=== PATIENT | female | born 1940 | race Caucasian/White ===

== ENCOUNTER 2017-08-16 14:31 | Emergency (ER) | payer MEDICARE ==
[2017-08-16 15:48] VITALS: BP 129/73
--- NOTE | 2017-08-16 15:54 | UC ---
Complaint Female HPI - HPI Summary HPI Summary: Lower abdomen pain began yesterday, urinating in small amounts, no fever - History Of Current Complaint Chief Complaint: UCGU Stated Complaint: URINARY Time Seen by Provider: 08/16/17 15:50 Hx Obtained From: Patient ?: No Onset/Duration: Sudden Onset, Lasting Days - 1 Timing: Constant Severity Initially: Moderate Severity Currently: Moderate Character: Burning Aggravating Factor(s): Urination Associated Signs And Symptoms: Positive: Back Pain - Allergies/Home Medications Allergies/Adverse Reactions: Allergies Allergy/AdvReac Type Severity Reaction Status Date / Time Amoxicillin Allergy Rash Verified 10/29/15 12:48 Iodinated Contrast Media Allergy Itching Verified 10/29/15 12:48 [CONTRAST DYE] Oxycodone [From Oxycontin] Allergy Itching Verified 10/29/15 12:48 Sulfamethoxazole AdvReac Intermediate "Pain" Verified 10/29/15 12:48 w/Trimethoprim [From Bactrim] Doxycycline AdvReac GI Upset, Verified 10/29/15 12:48 Nausea, Vomiting, Diarrhea Flu vaccine Allergy See Comment Uncoded 08/16/17 15:50 Hydrocodone 7.5/ Ibuprofen Allergy Unknown Uncoded 10/29/15 12:48 200 Reaction Details oxycodone Allergy Itching Uncoded 08/16/17 15:50 Home Medications: Home Medications Alendronate Sodium [Fosamax-] 70 mg PO WEEKLY 08/16/17 [History Confirmed ] Conjugated Estrogens VAG CM* [Premarin VAG CREAM*] 0.5 applic VAGINAL .SEE DIRECTIONS 08/16/17 [History Confirmed 08/16/17] Probiotic Product [Matchbook] 1 cap PO QAM 08/16/17 [History Confirmed 08/16/17] tiZANidine TAB* [Zanaflex TAB*] 2 mg PO BEDTIME 08/16/17 [History Confirmed 06/25] PMH/Surg Hx/FS Hx/Imm Hx Previously Healthy: No GI/ History: Gastroesophageal Reflux - Surgical History Surgical History: Yes Surgery Procedure, Year, and Place: 07/16/2017 L4 L5 plate screw and shay done at [facility]; Appendectomy, 1957. Tubal Ligation, 1976. L5 S1 Partial Discectomy, 1978. Breast Reduction, 2001. Left and Right Shoulder Surgeries "from repetative", 2003 and 2005. Right Carpal Tunnel Release and Tendon Repair , 2006. Total left Knee replacement. Bunion and Toes Surgeries - Family History Known Family History: Positive: None - Social History Occupation: Retired Lives: With Family Alcohol Use: Rare Substance Use Type: None Smoking Status (MU): Never Smoked Tobacco - Immunization History Most Recent Influenza Vaccination: "Allergic" Review of Systems Constitutional: Negative Skin: Negative Eyes: Negative ENT: Negative Respiratory: Negative Cardiovascular: Negative Gastrointestinal: Abdominal Pain Genitourinary: Frequency, Urgency Motor: Negative Neurovascular: Negative Musculoskeletal: Negative Neurological: Negative Psychological: Negative Is Patient Immunocompromised?: No All Other Systems Reviewed And Are Negative: Yes Physical Exam Triage Information Reviewed: Yes Vital Signs: Initial Vital Signs Temp 98 F 08/16/17 15:37 Pulse 84 08/16/17 15:37 Resp 18 08/16/17 15:37 BP 129/73 08/16/17 15:37 Eye Exam: Normal ENT Exam: Normal Dental Exam: Normal Neck exam: Normal Neck: Positive: 1 Respiratory Exam: Normal Cardiovascular Exam: Normal Abdominal Exam: Normal Musculoskeletal Exam: Normal Neurological Exam: Normal Psychological Exam: Normal Skin Exam: Normal Complaint Female Dx - Course Course Of Treatment: Increase fluids, macrobid, pyridium follow with pcp - Differential Dx/Diagnosis Provider Diagnoses: UTI Discharge - Discharge Plan Condition: Stable Disposition: HOME Prescriptions: Nitrofurantoin Monohyd Macro [Macrobid] 100 mg PO BID #20 cap Phenazopyridine TAB* [Pyridium 100 mg TAB*] 100 mg PO TID #9 tab Patient Education Materials: Phenazopyridine (By mouth), Urinary Tract Infection in Women (ED) Referrals: Edwin Morrow MD [Primary Care Provider] - If Needed
== END 2017-08-16 16:23 | disposition home or self-care (01) ==
LOC: UCCORT 14:31
DX: N39.0 Urinary tract infection, site not specified (principal); Z88.2 Allergy status to sulfonamides; Z88.1 Allergy status to other antibiotic agents; Z91.041 Radiographic dye allergy status
CPT/HCPCS: 81003; 87077; 87086; 87186; 99212; G0463

== ENCOUNTER 2019-01-14 13:27 | Emergency (ER) | payer MEDICARE ==
--- OUTSIDE RECORDS SUMMARY | 2019-01-14 14:49 | XMS REPORT | Continuity of Care Document ---
:1940 External Reference #:[id number] Author Name Edwin Morrow MD Address [address] [place] [address] Care Team Providers Name Role Phone Edwin Morrow MD Care Team Information [employer] Unavailable Payers Date Identification Numbers Payment Provider Subscriber Effective: 2005 Policy Number: [id number] Medicare Yuliya Card PayID: [id number] [address] [place] [address] Policy Number: [id number] [facility] Healthcare Options Yuliya Card PayID: [id number] [address] [place] [address] Advance Directives Description No Information Available Problems Date Description Provider Status Onset: 10/23/2014 Anxiety state Edwin Morrow MD Active Onset: 10/23/2014 Arthroplasty of knee Edwin Morrow MD Active Onset: 03/18/2005 Idiopathic peripheral neuropathy Edwin Morrow MD Active Onset: 03/18/2005 Gastroesophageal reflux disease Edwin Morrow MD Active Onset: 06/27/2005 Pure hypercholesterolemia Edwin Morrow MD Active Onset: 08/01/2005 Mild recurrent major depression Edwin Morrow MD Active Onset: 03/30/2007 Benign neoplasm of colon Edwin Morrow MD Active Onset: 10/09/2008 Degenerative joint disease Edwin Morrow MD Active involving multiple joints Onset: 04/12/2009 Edema Edwin Morrow MD Active Onset: 10/31/2011 Elevated blood-pressure reading Edwin Morrow MD Active without diagnosis of hypertension Onset: 06/20/2015 Osteopenia Edwin Morrow MD Active Onset: 11/30/2015 Degeneration of lumbar Edwin Morrow MD Active intervertebral disc Onset: 07/16/2018 Localized, primary osteoarthritis Edwin Morrow MD Active Onset: 02/05/2014 Localized, primary osteoarthritis Edwin Morrow MD Inactive of the lower leg Inactive: 06/20/2015 Onset: 03/30/2007 Osteochondropathy Edwin Morrow MD Inactive Inactive: 06/20/2015 Onset: 03/18/2005 Intrinsic asthma without status Edwin Morrow MD Inactive asthmaticus Inactive: 12/24/2015 Onset: 08/01/2005 Allergic rhinitis Edwin Morrow MD Inactive Inactive: 12/24/2015 Family History Date Family Member(s) Observation Comments Father due to CAD () Father due to CVA () - 82 Mother CAD Mother Osteoporosis Mother Dmii First Brother Multiple Blood Clots (Pe/DVT Paternal Uncles CAD Paternal Aunts Cancer, Breast Paternal Aunts Cancer, Colon Social History Type Date Description Comments Sex Unknown Marital Status Lives With Alone 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 09/15/2011 Doxycycline vomiting Active N/V 01/16/2006 Amoxicillin Active rash 03/14/2005 Oxycodone Active Itching 07/01/2017 Contrast Dye Active Mild itching 09/29/2017 Nitrofurantoin, Nausea and Vomiting Active Macrocrystals / Nitrofurantoin, Monohydrate Medications Medication Date Status Form Strength Qnty SIG Indications Ordering Provider Ranitidine 150 08/24/ Active Tablets 150mg 30tabs 1 by R10.10 Digiovanna Maximum 2017 mouth , Strength twice a Greer, day as DOG WALKER needed Fish Oil 03/04/ Active Capsules 1000mg 1 by E78.00 Heatheriovanmarie Dun[place]-3 2018 mouth , Edwin, every day otc Fluticasone 12/18/ Active Suspension 50mcg/Act 15.800 1-2 J06.9 Wilde Propionate 2018 ml sprays Hannah begum MD each nostril daily Multivitamin 05/14/ Active Tablets Adlt 50+ 90tabs 1 by Digsharla Adults 50+ 2016 Edwin huang every day Alendronate 05/14/ Active Tablets 70mg 12tabs take 1 M85.89 Odalys Sodium 2017 tablet Edwin every MD week in the morning - take with 8oz water and remain upright and nothing by mouth for 30 minutes M85.80 Acetaminophen 03/12/2017 Active Tablets ER 650mg otc 2 by M51.36 Odalys, ER reina Pineda MD twice a day as needed for pain Calcium Active Chewtabs 500mg 2 po bid M85.80 Odalys, Carbonate prn Edwin Dorantes MD Antacid Clindamycin HCL 10/05/2018 - Hx Capsules 300mg 2caps 2 pills Heatheriovanmarie, 10/07/2018 by mouth MD Edwin 1 hour pre-denta l work Azithromycin 04/20/2018 - Hx Tablets 250mg 6tabs 2 pills L03.211 Digiovanna, 04/30/2018 by reina Pineda MD day 1, then 1 pill once daily for 4 more days (take w/ food) Ciprofloxacin 09/29/2017 - Hx Tablets 250mg 10tab 1 by R30.0 Digiovanna , HCL 10/04/2017 s mouth Greer, DOG WALKER twice a day for 5 days Tizanidine HCL 08/13/2017 - Hx Tablets 2mg 14tab 1 by M54.5 Madden, 09/29/2017 s mouth at [place], DO bedtime Lorazepam 03/03/2017 - Hx Tablets 1mg 1tabs 1 by Odalys, 03/10/2017 mouth 1 MD Edwin hour pre-mri Dexamethasone 02/26/2017 - Hx Tablets 0.5mg QS 4 po q d M48.06 Chantelle, 05/14/2017 x 3 days DO Reji then 3 po q d x 3 days then 2 po q d x 3 then 3 days then 1 po q d x 3 days then stop Duloxetine HCL 02/26/2017 - Hx Caps DR 30mg 90cap take one M51.36 Heatheriovanna, 01/05/2018 Part s capsule MD Edwin by mouth every day G60.9 F33.0 Azelastine 10/09/2016 - Hx Solution 0.15% 30ml spray 1 H68.001 Madden HCL (Nasal) 07/01/2017 spray in [place], each DO nostril two times a day Frye 08/27/2016 - Hx Capsules one daily Digiovanna Colon Health 03/04/2018 or use , ann-marie Pineda MD daily both over the counter Kaopectate 06/23/2016 - Hx Suspension 525mg/15 as A09 Digiovanna Extra 06/30/2016 ML directed , Nathan Pineda MD Loperamide 06/23/2016 - Hx Capsules 2mg 90caps take one A09 Digiovanna HCL 06/30/2016 capsule by Edwin mouth MD three times a day as needed for loose stools Cephalexin 06/04/2016 - Hx Tablets 250mg 15tabs 1 pill by R21 Digiovanmarie 06/09/2016 mouth 3 Edwin, times a MD day for 5 days Duloxetine 12/06/2015 - Hx Caps DR Kumar 20mg 30caps 1 by mouth M51.36 Digiovanna HCL 02/26/2017 every day , MD Edwin G60.9 F33.0 Citalopram 12/05/2015 - Hx Tablets 10mg 30tabs 1 by M51.36 Odalys Hydrobromide Unknown mouth MD Edwin every day G60.9 F32.8 Duloxetine HCL 12/04/2015 - Hx Caps 20mg 30caps 1 by M51.36 Odalys, 05/26/2016 Part mouth MD Edwin every day G60.9 F32.8 Nitrofurantoin 10/11/2015 - Hx Capsules 100mg 14caps 1 by mouth R30.0 Chano Macrocrystal 10/18/2015 twice a day [place], DO x 7 days Prednisone 10/11/2015 - Hx Tablets 20mg 10tabs 2 by mouth M54.5 Madden, 10/16/2015 daily x 5 [place], DO days Lorazepam 08/24/2015 - Hx Tablets 1mg 1tabs 1 by mouth 1 Digiovanmarie, 09/03/2015 hour pre-MRI MD Edwin Tramadol HCL 08/14/2015 - Hx Tablets 50mg 30tabs 1/2 or 1 M54.2 Digiovanna, 02/26/2017 pill by MD Ewdin mouth 3 times a day as neededfor neck and arm pain R20.2 Prednisone 08/07/2015 - Hx Tablets 20mg 10tabs 1 pill by M54.2 Digiovanna, 09/18/2015 mouth MD Edwin twice a day with food for 5 days Tizanidine HCL 07/26/2015 - Hx Tablets 2mg 14tabs 1-2 po 733.6 Madden, 08/03/2015 qhs prn DO [place] pain Biotin 02/08/2015 - Hx Tablets OTC 1 PO qd Digiovanna, 12/31/2016 MD Edwin Citalopram 11/07/2014 - Hx Tablets 20mg 1/2 by 300.00 Digiovanmarie, Hydrobromide 12/04/2014 mouth MD Edwin every day Naproxen 10/23/2014 - Hx Tablets 375mg 180tabs 1 by M15.0 Shannanvanmarie, 12/10/2016 mouth MD Edwin twice a day with food as needed pain/arth ritis Z96.659 M15.9 Hydroxyzine HCL 10/17/2014 - Hx Tablets 10mg 50tabs 1 by mouth Digiovanna, 02/12/2015 up to 3 Edwin Dorantes MD times a day as needed for anxiety, and 2 at bedtime if needed for sleep Omeprazole 10/31/2011 - Hx Capsules DR 20mg 180caps Take Two K21 Digiovanna, 08/24/2018 Capsules By .9 MD Edwin Mouth Every Morning R10.13 [place] 50 10/09/2008 - Hx Capsules 1000mg 3PO qd E78.0 Digiovanna, 08/24/2018 Edwin Dorantes MD Glucosamine - Hx Capsules 1500Com 1 po qd Unknown Chondroitin 03/04/2018 1500 Complex Premarin - Hx Cream 0.625mg/G /2 Unknown 03/04/2018 M applicator full vaginally 2x/week Oxycodone HCL - Hx Tablets 5mg 1 by mouth Unknown 09/29/2017 every 4 hours as needed pain Naproxen - Hx Tablets 250mg 1 tab by Unknown 09/29/2017 mouth twice a day as needed after meals Docusate Sodium - Hx Capsules 100mg 1 by mouth Unknown 09/29/2017 twice a day Immunizations CPT Code Status Date Vaccine Lot # [id number] Given 06/20/2015 Prevnar 13 Pneumococal Conjugate Vaccine [id number] Given 06/02/2012 Tdap (Adacel) Ages 7 And Above Only 43916 Given 10/09/2008 Pneumococcal 23 Immunization Adult Or Immunosuppressed Patient 37414 Given 10/09/2008 Pneumococcal 23 Immunization Adult Or Immunosuppressed Patient 80029 Given 10/04/2007 Zoster (Zostavax) 33950 Refused 07/16/2018 Fluzone Highdose Age 65 And Over Preservative & Antibiotic Free 86305 Refused 09/29/2017 Influenza Vac, Quadrivalent, Split, 0.5mL Dosage, Im [id number] Use Vital Signs Date Vital Result Comment 12/28/2018 11:19am Weight 151.50 lb Heart Rate 74 /min BP Systolic 124 mmHg BP Diastolic 68 mmHg Respiratory Rate 18 /min 12/02/2018 2:14pm Body Temperature 98.0 F Weight 152.00 lb Heart Rate 70 /min BP Systolic 134 mmHg BP Diastolic 72 mmHg Respiratory Rate 18 /min Height 60 inches 5'0" BMI (Body Mass Index) 29.7 kg/m2 08/24/2018 2:26pm Body Temperature 98.3 F tympanic Weight 151.50 lb Heart Rate 76 /min BP Systolic 128 mmHg BP Diastolic 84 mmHg Respiratory Rate 16 /min Height 60 inches 5'0" BMI (Body Mass Index) 29.6 kg/m2 07/16/2018 1:27pm Weight 150.00 lb Heart Rate 74 /min BP Systolic 132 mmHg BP Diastolic 66 mmHg Respiratory Rate 16 /min Height 60 inches 5'0" BMI (Body Mass Index) 29.3 kg/m2 04/20/2018 11:21am Weight 151.00 lb Heart Rate 72 /min BP Systolic 120 mmHg BP Diastolic 80 mmHg Respiratory Rate 18 /min Height 60 inches 5'0" BMI (Body Mass Index) 29.5 kg/m2 03/12/2018 4:00pm Weight 150.00 lb Heart Rate 70 /min BP Systolic 146 mmHg BP Diastolic 70 mmHg Respiratory Rate 18 /min Height 60 inches 5'0" 03/04/18 BMI (Body Mass Index) 29.3 kg/m2 03/04/2018 9:55am Weight 150.00 lb Heart Rate 88 /min BP Systolic 122 mmHg BP Diastolic 70 mmHg Respiratory Rate 18 /min Height 60 inches 5'0" 03/04/18 BMI (Body Mass Index) 29.3 kg/m2 01/05/2018 12:58pm Weight 148.00 lb Heart Rate 74 /min BP Systolic 120 mmHg BP Diastolic 76 mmHg Respiratory Rate 18 /min Height 60 inches 5'0" BMI (Body Mass Index) 28.9 kg/m2 12/18/2017 1:52pm Body Temperature 98.4 F Weight 148.00 lb Heart Rate 88 /min BP Systolic 132 mmHg BP Diastolic 72 mmHg Respiratory Rate 18 /min Height 60 inches 5'0" O2 % BldC Oximetry 95 % ra BMI (Body Mass Index) 28.9 kg/m2 12/01/2017 10:42am Weight 147.00 lb Heart Rate 72 /min BP Systolic 120 mmHg BP Diastolic 80 mmHg Respiratory Rate 18 /min Height 60 inches 5'0" BMI (Body Mass Index) 28.7 kg/m2 10/21/2017 10:43am Weight 145.00 lb Heart Rate 72 /min BP Systolic 122 mmHg BP Diastolic 82 mmHg Respiratory Rate 18 /min Height 60 inches 5'0" BMI (Body Mass Index) 28.3 kg/m2 09/29/2017 1:58pm Body Temperature 97.7 F Weight 148.00 lb Heart Rate 94 /min BP Systolic 120 mmHg BP Diastolic 78 mmHg Respiratory Rate 16 /min Height 60 inches 5'0" BMI (Body Mass Index) 28.9 kg/m2 08/13/2017 2:27pm Weight 144.00 lb Heart Rate 68 /min BP Systolic 128 mmHg BP Diastolic 70 mmHg Respiratory Rate 18 /min Height 60 inches 5'0" BMI (Body Mass Index) 28.1 kg/m2 08/10/2017 4:15pm Body Temperature 97.5 F Weight 138.00 lb Heart Rate 70 /min BP Systolic 132 mmHg BP Diastolic 70 mmHg Respiratory Rate 18 /min Height 60 inches 5'0" BMI (Body Mass Index) 26.9 kg/m2 07/01/2017 1:00pm Weight 150.00 lb Heart Rate 74 /min BP Systolic 130 mmHg BP Diastolic 80 mmHg Respiratory Rate 18 /min Height 60 inches 5'0" BMI (Body Mass Index) 29.3 kg/m2 05/14/2017 9:32am Weight 151.00 lb Heart Rate 74 /min BP Systolic 130 mmHg BP Diastolic 80 mmHg Respiratory Rate 18 /min Height 60 inches 5'0" BMI (Body Mass Index) 29.5 kg/m2 02/26/2017 2:27pm Weight 152.50 lb Heart Rate 92 /min BP Systolic 136 mmHg BP Diastolic 80 mmHg Respiratory Rate 18 /min Height 60 inches 5'0" BMI (Body Mass Index) 29.8 kg/m2 12/31/2016 1:00pm Weight 151.19 lb Heart Rate 68 /min BP Systolic 148 mmHg BP Diastolic 80 mmHg BP Systolic Recheck 136 mmHg L at rest BP Diastolic Recheck 78 mmHg L at rest Respiratory Rate 18 /min Height 60 inches 5'0" BMI (Body Mass Index) 29.5 kg/m2 12/10/2016 4:21pm Body Temperature 97.9 F Weight 150.00 lb Heart Rate 74 /min BP Systolic 134 mmHg BP Diastolic 80 mmHg Respiratory Rate 18 /min Height 60 inches 5'0" BMI (Body Mass Index) 29.3 kg/m2 10/09/2016 8:38am Body Temperature 97.0 F Weight 151.00 lb Heart Rate 74 /min BP Systolic 122 mmHg BP Diastolic 78 mmHg Respiratory Rate 18 /min Height 60 inches 5'0" BMI (Body Mass Index) 29.5 kg/m2 08/27/2016 11:02am Weight 144.00 lb Heart Rate 74 /min BP Systolic 126 mmHg BP Diastolic 80 mmHg Respiratory Rate 18 /min Height 60 inches 5'0" BMI (Body Mass Index) 28.1 kg/m2 06/30/2016 12:59pm Weight 147.00 lb Heart Rate 72 /min BP Systolic 120 mmHg BP Diastolic 78 mmHg Respiratory Rate 18 /min Height 60 inches 5'0" BMI (Body Mass Index) 28.7 kg/m2 06/23/2016 11:26am Body Temperature 97.4 F Weight 145.00 lb Heart Rate 72 /min BP Systolic 130 mmHg BP Diastolic 80 mmHg Respiratory Rate 18 /min Height 60 inches 5'0" BMI (Body Mass Index) 28.3 kg/m2 06/04/2016 11:10am Body Temperature 98.1 F Weight 146.00 lb Heart Rate 74 /min BP Systolic 120 mmHg BP Diastolic 72 mmHg Respiratory Rate 18 /min Height 60 inches 5'0" BMI (Body Mass Index) 28.5 kg/m2 04/29/2016 9:50am Weight 149.00 lb Heart Rate 74 /min BP Systolic 140 mmHg BP Diastolic 80 mmHg Respiratory Rate 18 /min 02/19/2016 9:04am Body Temperature 97.5 F Weight 146.00 lb Heart Rate 72 /min BP Systolic 120 mmHg BP Diastolic 80 mmHg Respiratory Rate 18 /min Height 60.1 inches 5'0.10" BMI (Body Mass Index) 28.4 kg/m2 02/11/2016 1:54pm Weight 147.00 lb Heart Rate 74 /min BP Systolic 140 mmHg BP Diastolic 88 mmHg Respiratory Rate 18 /min Height 60.1 inches 5'0.10" BMI (Body Mass Index) 28.6 kg/m2 12/24/2015 1:02pm Weight 143.00 lb Heart Rate 90 /min BP Systolic 132 mmHg BP Diastolic 86 mmHg Respiratory Rate 16 /min Height 60.1 inches 5'0.10" BMI (Body Mass Index) 27.8 kg/m2 11/30/2015 3:31pm Body Temperature 98.4 F tymp Weight 144.00 lb Heart Rate 96 /min BP Systolic 118 mmHg L/Reg BP Diastolic 74 mmHg L/Reg Respiratory Rate 18 /min Height 60.1 inches 5'0.10" BMI (Body Mass Index) 28.0 kg/m2 11/28/2015 8:20am Body Temperature 98.6 F Weight 139.00 lb Heart Rate 112 /min BP Systolic 132 mmHg L/Reg BP Diastolic 74 mmHg L/Reg Respiratory Rate 20 /min Height 60.1 inches 5'0.10" BMI (Body Mass Index) 27.1 kg/m2 11/26/2015 9:31am Body Temperature 98.3 F Weight 144.00 lb Heart Rate 110 /min BP Systolic 130 mmHg BP Diastolic 80 mmHg Respiratory Rate 19 /min Height 60.1 inches 5'0.10" O2 % BldC Oximetry 96 % Ra BMI (Body Mass Index) 28.0 kg/m2 10/11/2015 1:09pm Body Temperature 98.2 F Weight 156.00 lb Heart Rate 72 /min BP Systolic 122 mmHg BP Diastolic 70 mmHg Respiratory Rate 18 /min Height 60.1 inches 5'0.10" BMI (Body Mass Index) 30.4 kg/m2 09/07/2015 2:21pm Weight 152.00 lb Heart Rate 84 /min BP Systolic 138 mmHg L/Reg BP Diastolic 86 mmHg L/Reg Respiratory Rate 17 /min Height 60.1 inches 5'0.10" BMI (Body Mass Index) 29.6 kg/m2 08/07/2015 3:37pm Weight 152.00 lb Heart Rate 78 /min BP Systolic 132 mmHg L/Reg BP Diastolic 82 mmHg L/Reg Respiratory Rate 21 /min Height 60.1 inches 5'0.10" BMI (Body Mass Index) 29.6 kg/m2 07/26/2015 11:40am Weight 151.00 lb Heart Rate 78 /min BP Systolic 128 mmHg BP Diastolic 76 mmHg Respiratory Rate 18 /min Height 60.5 inches 5'0.50" BMI (Body Mass Index) 29.0 kg/m2 06/20/2015 1:01pm Weight 151.00 lb Heart Rate 76 /min BP Systolic 122 mmHg BP Diastolic 70 mmHg Respiratory Rate 18 /min Height 60.5 inches 5'0.50" BMI (Body Mass Index) 29.0 kg/m2 06/14/2015 11:05am Body Temperature 98.6 F Weight 150.00 lb Heart Rate 64 /min BP Systolic 130 mmHg BP Diastolic 78 mmHg Respiratory Rate 18 /min Height 60.5 inches 5'0.50" O2 % BldC Oximetry 97 % BMI (Body Mass Index) 28.8 kg/m2 05/10/2015 11:24am Weight 151.00 lb Heart Rate 76 /min BP Systolic 138 mmHg R/Reg BP Diastolic 84 mmHg R/Reg Respiratory Rate 18 /min Height 60.5 inches 5'0.50" BMI (Body Mass Index) 29.0 kg/m2 02/12/2015 10:08am Body Temperature 98.9 F Weight 144.12 lb Heart Rate 78 /min BP Systolic 118 mmHg BP Diastolic 72 mmHg Respiratory Rate 18 /min Height 60.5 inches 5'0.50" O2 % BldC Oximetry 98 % Ra BMI (Body Mass Index) 27.7 kg/m2 12/20/2014 3:20pm Weight 146.31 lb Heart Rate 74 /min BP Systolic 118 mmHg BP Diastolic 68 mmHg Respiratory Rate 18 /min Height 60.5 inches 5'0.50" BMI (Body Mass Index) 28.1 kg/m2 11/07/2014 11:07am Weight 141.00 lb Heart Rate 78 /min BP Systolic 130 mmHg BP Diastolic 84 mmHg Respiratory Rate 18 /min Height 60.5 inches 5'0.50" 10/23/2014 1:00pm Weight 142.00 lb Down 7# Heart Rate 84 /min BP Systolic 118 mmHg L/Reg BP Diastolic 74 mmHg L/Reg Respiratory Rate 17 /min Height 60.5 inches 5'0.50" 09/06/2014 1:56pm Weight 149.00 lb Heart Rate 80 /min BP Systolic 134 mmHg BP Diastolic 88 mmHg Respiratory Rate 18 /min Height 60.5 inches 5'0.50" O2 % BldC Oximetry 97 % 08/25/2014 1:55pm Body Temperature 98.2 F Weight 147.00 lb Heart Rate 94 /min BP Systolic 128 mmHg BP Diastolic 80 mmHg Respiratory Rate 18 /min Height 60.5 inches 5'0.50" O2 % BldC Oximetry 93 % Ra 06/06/2014 1:34pm Weight 148.00 lb Heart Rate 84 /min BP Systolic 128 mmHg BP Diastolic 84 mmHg Respiratory Rate 18 /min 02/08/2014 4:34pm Body Temperature 98.8 F Weight 144.00 lb Heart Rate 88 /min BP Systolic 112 mmHg BP Diastolic 80 mmHg Respiratory Rate 18 /min Height 60.5 inches 5'0.50" 12/06/2013 1:03pm Weight 150.00 lb Up 3# Heart Rate 76 /min BP Systolic 134 mmHg L/Reg BP Diastolic 80 mmHg L/Reg Respiratory Rate 19 /min Height 60.5 inches 5'0.50" 11/28/2013 9:52am Weight 147.19 lb Heart Rate 76 /min BP Systolic 148 mmHg BP Diastolic 88 mmHg Respiratory Rate 18 /min Results Test Date Facility Test Result H/L Range Note Basic (BMP) 06/30/2018 [facility] Sodium 144 mmol/L 135-146 1, 2 Potassium 4.1 mmol/L 3.5-5.2 Chloride# 106 mmol/L 97-110 3 Carbon Dioxide 28 mmol/L 24-34 Glucose 85 mg/dL 70-105 BUN 17 mg/dL 6-26 Creatinine 0.8 mg/dL 0.5-1.4 Calcium 9.0 mg/dL 8.5-10.2 Non Elizabeth Egfr >60 >60 4 Elizabeth Egfr >60 >60 5 Anion Gap 10 mmol/L 5-15 6 Lipid Treatment 06/30/2018 [facility] Cholesterol 181 mg/dL 50-199 Triglycerides 210 mg/dL High 30-200 HDL 43 mg/dL 35-85 7 Chol/ HDL Ratio 4.2 ratio 3.7-5.6 VLDL 42 mg/dL High 2-29 LDL (Calc) 96 mg/dL 20-99 8 Alt 12 U/L 3-42 Ast 16 U/L 8-42 CBC with Auto Diff-fcmg 06/30/2018 [facility] WBC 4.9 K/uL 4.1-11.0 9 RBC 4.44 M/uL 4.00-5.40 Hemoglobin 14.2 gm/dL 12.0-16.0 Hematocrit 42.5 % 36.0-47.0 MCV 95.6 fL 80.0-97.0 MCH 31.9 pg 27.0-32.0 MCHC 33.4 g/dL 32.0-36.0 RDW 12.7 % 11.5-14.5 PLT Count 196 K/ul 140-400 MPV 11.0 FL High 7.1-10.7 Neutrophil 45.1 % 35.0-75.0 Lymphocyte 45.2 % 16.0-52.0 Monocyte 6.8 % 2.0-10.0 Eosinophil 1.6 % 0.0-5.0 Basophil 1.3 % 0.0-4.0 Abs Neutrophils 2.2 K/uL 2.1-8.0 Abs Lymphocytes 2.2 K/uL 0.8-5.5 Abs Monocytes 0.3 K/uL 0.1-1.0 Abs Eosinophils 0.1 K/uL 0.0-0.5 Abs Basophils 0.1 K/uL 0.0-0.3 Laboratory test finding 06/30/2018 [facility] CRP (C-Reactive) 0.21 mg/dL 0.00-0.75 Esr 14 mm/hr 0-20 Basic (BMP) 12/29/2017 [facility] Sodium 144 mmol/L 135-146 10, 11 Potassium 4.3 mmol/L 3.5-5.2 Chloride# 104 mmol/L 97-110 12 Carbon Dioxide 32 mmol/L 24-34 Glucose 87 mg/dL 70-105 BUN 17 mg/dL 6-26 Creatinine 0.8 mg/dL 0.5-1.4 Calcium 9.3 mg/dL 8.5-10.2 Non Elizabeth Egfr >60 >60 13 Elizabeth Egfr >60 >60 14 Anion Gap 8 mmol/L 5-15 15 Lipid Treatment 12/29/2017 [facility] Cholesterol 216 mg/dL High 50-199 Triglycerides 245 mg/dL High 30-200 HDL 45 mg/dL 35-85 16 Chol/ HDL Ratio 4.8 ratio 3.7-5.6 VLDL 49 mg/dL High 2-29 LDL (Calc) 122 mg/dL High 20-99 17 Alt 10 U/L 3-42 Ast 15 U/L 8-42 Laboratory test finding 12/29/2017 [facility] Vitamin D 25 Hydroxy 35 ng/mL 30-100 18 Magnesium 2.2 mg/dL 1.5-2.7 Vitamin B12 392 pg/mL 180-914 CBC With Auto Diff 12/29/2017 [facility] WBC 5.3 K/uL 4.1-11.0 RBC 4.42 M/uL 4.00-5.40 Hemoglobin 14.0 gm/dL 12.0-16.0 Hematocrit 41.8 % 36.0-47.0 MCV 94.6 fL 80.0-97.0 MCH 31.6 pg 27.0-32.0 MCHC 33.4 g/dL 32.0-36.0 RDW 13.3 % 11.5-14.5 PLT Count 234 K/ul 140-400 MPV 10.2 FL 7.1-10.7 Neutrophil 52.7 % 35.0-75.0 Lymphocyte 37.7 % 16.0-52.0 Monocyte 7.4 % 2.0-10.0 Eosinophil 1.3 % 0.0-5.0 Basophil 0.9 % 0.0-4.0 Abs Neutrophils 2.8 K/uL 2.1-8.0 Abs Lymphocytes 2.0 K/uL 0.8-5.5 Abs Monocytes 0.4 K/uL 0.1-1.0 Abs Eosinophils 0.1 K/uL 0.0-0.5 Abs Basophils 0.0 K/uL 0.0-0.3 CBC With Auto Diff 12/01/2017 [facility] WBC 5.5 K/uL 4.1-11.0 RBC 4.43 M/uL 4.00-5.40 Hemoglobin 14.0 gm/dL 12.0-16.0 Hematocrit 41.9 % 36.0-47.0 MCV 94.5 fL 80.0-97.0 MCH 31.6 pg 27.0-32.0 MCHC 33.4 g/dL 32.0-36.0 RDW 13.5 % 11.5-14.5 PLT Count 194 K/ul 140-400 MPV 11.3 FL High 7.1-10.7 Neutrophil 58.7 % 35.0-75.0 Lymphocyte 31.6 % 16.0-52.0 Monocyte 7.8 % 2.0-10.0 Eosinophil 1.3 % 0.0-5.0 Basophil 0.6 % 0.0-4.0 Abs Neutrophils 3.3 K/uL 2.1-8.0 Abs Lymphocytes 1.7 K/uL 0.8-5.5 Abs Monocytes 0.4 K/uL 0.1-1.0 Abs Eosinophils 0.1 K/uL 0.0-0.5 Abs Basophils 0.0 K/uL 0.0-0.3 Comprehensive Met Panel-FCM 12/01/2017 [facility] Sodium 142 mmol/L 135- 146 19 Potassium 4.2 mmol/L 3.5-5.2 Chloride# 103 mmol/L 97-110 20 Carbon Dioxide 34 mmol/L 24-34 Glucose 75 mg/dL 70-105 BUN 16 mg/dL 6-26 Creatinine 0.8 mg/dL 0.5-1.4 Calcium 10.1 mg/dL 8.5-10.2 Total Protein 6.6 g/dL 6.0-8.0 Albumin 4.3 g/dL 3.6-4.9 Globulin 2.3 g/dL 2.0-3.5 A/G Ratio 1.9 Ratio 1.0-2.2 Total Bilirubin 0.4 mg/dL 0.1-1.3 Alkaline Phosphatase 98 U/L 24-140 Alt 12 U/L 3-42 Ast 17 U/L 8-42 Elizabeth Egfr >60 >60 21 Non Elizabeth Egfr >60 >60 22 Anion Gap 5 mmol/L Low 7-16 23 Laboratory test finding 12/01/2017 [facility] Amylase 33 U/L 29-103 Lipase 6 U/L Low 11-82 Laboratory test 09/29/2017 [facility] Urine Culture Microbiology res 24 finding <SEE NOTE> Laboratory test 09/14/2017 [facility] CRP 0.27 mg/dL 0.00-0.7 finding (C-Reactive) 5 CBC With Auto Diff 09/10/2017 [facility] WBC 4.9 K/uL 4.1-11.0 RBC 3.97 M/uL Low 4.00-5.40 Hemoglobin 12.7 gm/dL 12.0-16.0 Hematocrit 38.1 % 36.0-47.0 MCV 96.1 fL 80.0-97.0 MCH 32.1 pg High 27.0-32.0 MCHC 33.4 g/dL 32.0-36.0 RDW 12.8 % 11.5-14.5 PLT Count 226 K/ul 140-400 MPV 10.5 FL 7.1-10.7 Neutrophil 55.6 % 35.0-75.0 Lymphocyte 33.8 % 16.0-52.0 Monocyte 7.8 % 2.0-10.0 Eosinophil 1.8 % 0.0-5.0 Basophil 1.0 % 0.0-4.0 Abs Neutrophils 2.7 K/uL 2.1-8.0 Abs Lymphocytes 1.7 K/uL 0.8-5.5 Abs Monocytes 0.4 K/uL 0.1-1.0 Abs Eosinophils 0.1 K/uL 0.0-0.5 Abs Basophils 0.0 K/uL 0.0-0.3 Laboratory test finding 09/10/2017 [facility] Esr 16 mm/hr 0-20 Stool Panel 08/11/2017 [facility] Enteric Pathogens By SEE NOTE 25 PCR Giard/Cryptosp Exam SEE NOTE 26 Lactoferrin,Fecal NEGATIVE (Neg) 27 C Diff Toxin B/PCR-RL 08/11/2017 [facility] Specimen Description STOOL C Diff Toxin B NEGATIVE (Neg) 027 Nap1 B1 NEGATIVE (Neg) Comment NOTE: IF REFLEX <SEE NOTE> 28 Laboratory test finding 01/05/2017 [facility] H. Pylori Stool Ag SEE NOTE 29 Laboratory test finding 12/24/2016 [facility] Vit D,25 Hydroxy 40 ng/mL 31- 100 30 Lipid Treatment 12/24/2016 [facility] Cholesterol 163 mg/dL 50-199 Triglycerides 135 mg/dL 30-200 HDL 42 mg/dL 35-85 31 Chol/ HDL Ratio 3.9 ratio 3.7-5.6 VLDL 27 mg/dL 2-29 LDL (Calc) 94 mg/dL 20-99 32 Alt 11 U/L 3-42 Ast 14 U/L 8-42 Basic (BMP) 12/24/2016 [facility] Sodium 141 mmol/L 134-142 Potassium 4.2 mmol/L 3.5-5.2 Chloride 105 mmol/L 97-109 Carbon Dioxide 31 mmol/L 24-34 Glucose 96 mg/dL 70-105 BUN 18 mg/dL 6-26 Creatinine 0.8 mg/dL 0.5-1.4 Calcium 9.0 mg/dL 8.5-10.2 Anion Gap 9 mmol/L 6-14 Non Elizabeth Egfr >60 >60 33 Elizabeth Egfr >60 >60 34 Laboratory test finding 06/16/2016 [facility] Magnesium 1.9 mg/dL 1.5-2.7 35 Vitamin B12 411 pg/mL 180-914 Vit D,25 Hydroxy 36 ng/mL 31-100 Lipid 06/16/2016 [facility] Cholesterol 168 mg/dL 50-199 Triglycerides 134 mg/dL 30-200 HDL 46 mg/dL 35-85 36 Chol/ HDL Ratio 3.7 ratio 3.7-5.6 VLDL 27 mg/dL 2-29 LDL (Calc) 95 mg/dL 20-99 37 Hepatic Panel (LFT) 06/16/2016 [facility] Total Protein 6.3 g/dL 6.0-8.0 Albumin 3.8 g/dL 3.6-4.9 Total Bilirubin 0.4 mg/dL 0.1-1.3 Direct Bilirubin 0.1 mg/dL 0.0-0.4 Alkaline Phosphatase 73 U/L 24-140 Alt 12 U/L 3-42 Ast 16 U/L 8-42 CBC With Auto Diff 06/16/2016 [facility] WBC 5.1 K/uL 4.1-11.0 RBC 4.37 M/uL 4.00-5.40 Hemoglobin 14.3 gm/dL 12.0-16.0 Hematocrit 42.1 % 36.0-47.0 MCV 96.2 fL 80.0-97.0 MCH 32.6 pg High 27.0-32.0 MCHC 33.9 g/dL 32.0-36.0 RDW 12.3 % 11.5-14.5 PLT Count 196 K/ul 140-400 Neutrophil 57.5 % 35.0-75.0 Lymphocyte 32.9 % 16.0-52.0 Monocyte 7.7 % 2.0-10.0 Eosinophil 0.8 % 0.0-5.0 Basophil 1.1 % 0.0-4.0 Abs Neutrophils 2.9 K/uL 2.1-8.0 Abs Lymphocytes 1.7 K/uL 0.8-5.5 Abs Monocytes 0.4 K/uL 0.1-1.0 Abs Eosinophils 0.0 K/uL 0.0-0.5 Abs Basophils 0.1 K/uL 0.0-0.3 Basic (BMP) 06/16/2016 [facility] Sodium 142 mmol/L 134-142 Potassium 4.2 mmol/L 3.5-5.2 Chloride 104 mmol/L 97-109 Carbon Dioxide 31 mmol/L 24-34 Glucose 86 mg/dL 70-105 BUN 19 mg/dL 6-26 Creatinine 0.8 mg/dL 0.5-1.4 Calcium 9.0 mg/dL 8.5-10.2 Anion Gap 11 mmol/L 6-14 Non Elizabeth Egfr >60 >60 38 Elizabeth Egfr >60 >60 39 Lipid 12/12/2015 [facility] Cholesterol 155 mg/dL 50-199 40 Triglycerides 112 mg/dL 30-200 HDL 42 mg/dL 35-85 41 Chol/ HDL Ratio 3.7 ratio 3.7-5.6 VLDL 22 mg/dL 2-29 LDL (Calc) 91 mg/dL 20-99 42 Urinalysis With 11/28/2015 [facility] Urine Color YELLOW Yellow Microscopic (315)- - Urine Clarity CLEAR Clear Urine Glucose - Dipstick NEGATIVE mg/dL Negative Urine Bilirubin - Dipstick NEGATIVE Negative Urine Ketone 15 mg/dL High Negative Urine Specific Mikana 1.010 1.010-1.030 Urine Blood NEGATIVE Negative Urine PH 6.5 6.5-7.5 Urine Protein - Dipstick NEGATIVE mg/dL Negative Urine Urobilinogen - Dipstick 0.2 E.U./dL 0.2-1.0 Urine Nitrite - Dipstick NEGATIVE Negative Urine Leuk Esterase LARGE High Negative Urine RBC 2-5 rbc/hpf 0-2 Urine WBC 10-20 wbc/hpf High 0-7 Urine Epithelial Cells MODERATE NONESEEN/lpf 43 Urine Bacteria FEW NONESEEN Urine Mucus SMALL NONESEEN Urine Screen 11/28/2015 [facility] Ua RFX Micro See Note 44 (315)- - + Culture II Urine Culture 11/28/2015 [facility] Urine Culture See Note 45 (315)- - Comprehensive 11/28/2015 [facility] Glucose 107 mg/dL High 74-106 Metabolic Panel (315)- - BUN 16 mg/dL 7-18 Creatinine 0.9 mg/dL 0.6-1.3 Glom Filtration Rate, Estimate >60 mL/min >60 If >60 mL/min >60 46 BUN/Creat 17.7 ratio Sodium 142 mmol/L 136-145 Potassium 3.5 mmol/L 3.5-5.1 Chloride 106 mmol/L 98-107 Carbon Dioxide 27 mmol/L 21-32 Anion Gap 9 mEq/L 8-16 Calcium 8.6 mg/dL 8.5-10.1 Total Protein 7.6 g/dL 6.4-8.2 Albumin 3.7 g/dL 3.4-5.0 Globulin 3.9 g/dL 1.9-4.3 Alb/Glob 0.9 ratio Bilirubin,Total 0.5 mg/dL 0.2-1.0 Sgot/Ast 19 U/L 15-37 SGPT/Alt 22 U/L 12-78 Alkaline Phosphatase 85 U/L 45-117 CBC 11/28/2015 [facility] White Blood Count 6.2 K/uL 3.1-10.7 (315)- - Red Blood Count 4.76 M/uL 3.90-5.40 Hemoglobin 15.7 gm/dL 11.6-15.8 Hematocrit 46.7 % High 36.0-46.1 Mean Cell Volume 98.1 fl 80.9-99.0 Mean Corpuscular HGB 33.0 pg High 25.9-32.7 Mean Corpuscular HGB Conc 33.6 g/dL 30.8-34.3 Platelet Count 280 K/uL 155-360 Red Cell Distri Width %CV 12.1 % 11.7-14.4 Mean Platelet Volume 11.9 fL 8.9-12.4 Basic (BMP) 11/26/2015 [facility] Sodium 135 mmol/L 134-142 47 Potassium 4.8 mmol/L 3.5-5.2 Chloride 99 mmol/L 97-109 Carbon Dioxide 30 mmol/L 24-34 Glucose 108 mg/dL High 70-105 BUN 16 mg/dL 6-26 Creatinine 0.9 mg/dL 0.5-1.4 Calcium 9.6 mg/dL 8.5-10.2 Anion Gap 11 mmol/L 6-14 Non Elizabeth Egfr >60 >60 48 Elizabeth Egfr >60 >60 49 CBC With Auto Diff 11/26/2015 [facility] WBC 6.4 K/uL 4.1-11.0 RBC 4.57 M/uL 4.00-5.40 Hemoglobin 15.2 gm/dL 12.0-16.0 Hematocrit 45.8 % 36.0-47.0 MCV 100.1 fL High 80.0-97.0 MCH 33.3 pg High 27.0-32.0 MCHC 33.3 g/dL 32.0-36.0 RDW 12.5 % 11.5-14.5 PLT Count 232 K/ul 140-400 Neutrophil 66.7 % 35.0-75.0 Lymphocyte 23.5 % 16.0-52.0 Monocyte 7.3 % 2.0-10.0 Eosinophil 1.5 % 0.0-5.0 Basophil 1.0 % 0.0-4.0 Abs Neutrophils 4.2 K/uL 2.1-8.0 Abs Lymphocytes 1.5 K/uL 0.8-5.5 Abmon 0.5 K/uL 0.1-1.0 Abs Eosinophils 0.1 K/uL 0.0-0.5 Abs Basophils 0.1 K/uL 0.0-0.3 Laboratory test 10/11/2015 [facility] Urine Culture Microbiology res Abnormal 50 finding <SEE NOTE> Lipid Treatment 06/13/2015 [facility] Cholesterol 197 mg/dL 50-199 51 Triglycerides 145 mg/dL 30-200 HDL 48 mg/dL 35-85 52 Chol/ HDL Ratio 4.1 ratio 3.7-5.6 VLDL 29 mg/dL 2-29 LDL (Calc) 120 mg/dL High 20-99 53 Alt 16 U/L 3-42 Ast 18 U/L 8-42 Basic (BMP) 06/13/2015 [facility] Sodium 141 mmol/L 134-142 Potassium 4.4 mmol/L 3.5-5.2 Chloride 103 mmol/L 97-109 Carbon Dioxide 32 mmol/L 24-34 Glucose 86 mg/dL 70-105 BUN 22 mg/dL 6-26 Creatinine 0.8 mg/dL 0.5-1.4 Calcium 9.3 mg/dL 8.5-10.2 Anion Gap 10 mmol/L 6-14 Non Elizabeth Egfr >60 >60 54 Elizabeth Egfr >60 >60 55 Laboratory test 06/13/2015 [facility] Magnesium 2.1 mg/dL 1.5-2.7 finding Laboratory test 12/01/2014 [facility] Sgot/Ast 15 U/L 15-37 56 finding (315)- - SGPT/Alt 18 U/L 12-78 Vitamin D,25-Hydroxy 44.7 ng/mL 30.0-100.0 57 LDL Cholesterol 12/01/2014 [facility] Cholesterol 187 mg/ dL < 200 58 Profile (315)- - Triglycerides 125 mg/dL < 150 59 HDL Cholesterol 42 mg/dL > 40 60 LDL-Cholesterol 120 mg/dL < 100 61 Basic Metabolic Panel 12/01/2014 [facility] Glucose 86 mg /dL 74-106 (315)- - BUN 18 mg/dL 7-18 Creatinine 0.8 mg/dL 0.6-1.3 Glom Filtration Rate, Estimate >60 mL/min >60 If >60 mL/min >60 62 BUN/Creat 22.5 ratio Sodium 142 mmol/L 136-145 Potassium 4.4 mmol/L 3.5-5.1 Chloride 107 mmol/L 98-107 Carbon Dioxide 30 mmol/L 21-32 Anion Gap 9 mEq/L 8-16 Calcium 9.3 mg/dL 8.5-10.1 Laboratory test finding 09/06/2014 N2N/[facility]D Import Culture Urine See Note 63 Lipid Panel 05/30/2014 N[facility]N/[facility] Chol/HDL Ratio 4.9 ratio Cholesterol 227.0 mg/dL High 50.0-199.0 HDL 46.0 mg/dL 29.0-86.0 LDL, Calculated 148.6 mg/dL High 20.0-129.0 Triglycerides 162.0 mg/dL 30.0-249.0 vLDL 32.4 ng/dL Laboratory test finding 05/30/2014 N2N/CCD Import Alt 19.0 U/L 9.0-52.0 Ast 19.0 U/L 14.0-36.0 BUN 22.0 mg/dL High 7.0-18.0 BUN/Creat Ratio 27.5 ratio High 12.0-20.0 Calcium 9.1 mg/dL 8.7-10.5 Chloride 107.0 mmol/L 98.0-107.0 Co2 28.0 mmol/L 22.0-30.0 Creatinine-Serum 0.8 mg/dL 0.7-1.2 Glucose 94.0 mg/dL 75.0-110.0 Potasium 4.2 mmol/L 3.6-5.0 Sodium 143.0 mmil/L 137.0-145.0 eGFR 75.2 Lipid Panel 11/29/2013 N2N/[facility] Import Chol/HDL Ratio 5.1 ratio Cholesterol 200.0 mg/dL High 50.0-199.0 HDL 39.0 mg/dL 29.0-86.0 LDL, Calculated 129.2 mg/dL High 20.0-129.0 Triglycerides 159.0 mg/dL 30.0-249.0 vLDL 31.8 ng/dL Laboratory test finding 11/29/2013 N2N/CCD Import % Baso. 1.9 % 0.0-2.0 % Eos. 1.6 % 0.0-4.0 % Lymph 45 % High 20-44 % [place] 6.8 % 2.0-10.0 % Danielle 44 % Low 50-70 Absolute Baso. 0.1 K/ul 0.0-0.3 Absolute Eos. 0.1 K/ul 0.0-0.5 Absolute Lymph. 2.1 K/ul 0.8-4.8 Absolute [place]. 0.3 K/ul 0.1-1.0 Absolute Danielle. 2.01 K/ul Low 2.05-7.63 Alt 12.0 U/L 9.0-52.0 Ast 17.0 U/L 14.0-36.0 BUN 14.0 mg/dL 7.0-18.0 BUN/Creat Ratio 17.5 ratio 12.0-20.0 Calcium 9.5 mg/dL 8.7-10.5 Chloride 108.0 mmol/L High 98.0-107.0 Co2 27.0 mmol/L 22.0-30.0 Creatinine-Serum 0.8 mg/dL 0.7-1.2 Glucose 90.0 mg/dL 75.0-110.0 HCT 43.4 % 37.0-51.0 HGB 15.0 Gm/dl 12.0-16.0 MCH 33.1 pg High 26.0-32.0 MCHC 34.6 g/dL 31.0-36.0 MCV 95.9 Fl 80.0-97.0 MPV 7.3 fL 6.0-10.0 Magnesium 2.1 mg/dL 1.7-2.3 64 PLT 211 K/ul 140-440 Potasium 4.1 mmol/L 3.6-5.0 RBC 4.5 M/ul 4.2-6.3 RDW 11.2 % Low 11.5-14.5 Sodium 143.0 mmil/L 137.0-145.0 Vitamin D 54.1 ng/mL 30.0-100.0 WBC 4.5 K/ul 4.1-10.9 eGFR 75.4 1 06/26 preOV 2 Updated reference range on new analyzer 3 Updated reference range on new analyzer 4 Concerning GFR Guidelines: Normal function or mild renal disease, if clinically at risk: >/=60 mL/min Moderately decreased: 30-59 Severely decreased: 15-29 Renal failure: <15 Glomerular Filtration Rate (GFR) is estimated based on the MDRD equation, which assumes a steady state for creatinine as recommended by the National Kidney Disease Education Program in conjunction with the National Institutes of Health and the National Kidney Foundation. Clinical conditions in which it may be necessary to measure GFR by using clearance methods include extremes of age and body size, severe malnutrition or obesity, diseases of skeletal muscle, paraplegia or quadriplegia, vegetarian diet, rapidly changing kidney function, and calculation of the dose of potentially toxic drugs that are excreted by the kidneys. 5 Concerning GFR Guidelines for Americans: Normal function or mild renal disease, if clinically at risk: >/=60 mL/min Moderately decreased: 30-59 Severely decreased: 15-29 Renal failure: <15 6 Updated Reference Range 7 Per NCEP ATP III Guidelines: Results lower than 40 mg/dL are suggestive of increased risk for coronary artery disease. Results > or=to 60 mg/dL are considered a negative risk factor. 8 Per NCEP ATP III Guidelines: Normal Population <130 Patients with medical conditions: CHD/DM Optimal: <100 Borderline high: 130-159 High: 160-189 Very high: >189 9 outside order in pink folder 10 12/27 PRE-OV 11 Updated reference range on new analyzer 12 Updated reference range on new analyzer 13 Concerning GFR Guidelines: Normal function or mild renal disease, if clinically at risk: >/=60 mL/min Moderately decreased: 30-59 Severely decreased: 15-29 Renal failure: <15 Glomerular Filtration Rate (GFR) is estimated based on the MDRD equation, which assumes a steady state for creatinine as recommended by the National Kidney Disease Education Program in conjunction with the National Institutes of Health and the National Kidney Foundation. Clinical conditions in which it may be necessary to measure GFR by using clearance methods include extremes of age and body size, severe malnutrition or obesity, diseases of skeletal muscle, paraplegia or quadriplegia, vegetarian diet, rapidly changing kidney function, and calculation of the dose of potentially toxic drugs that are excreted by the kidneys. 14 Concerning GFR Guidelines for Americans: Normal function or mild renal disease, if clinically at risk: >/=60 mL/min Moderately decreased: 30-59 Severely decreased: 15-29 Renal failure: <15 15 Updated Reference Range 16 Per NCEP ATP III Guidelines: Results lower than 40 mg/dL are suggestive of increased risk for coronary artery disease. Results > or=to 60 mg/dL are considered a negative risk factor. 17 Per NCEP ATP III Guidelines: Normal Population <130 Patients with medical conditions: CHD/DM Optimal: <100 Borderline high: 130-159 High: 160-189 Very high: >189 18 Clinical Guidelines for recommended serum 25(OH)Vitamin D Deficient at less than 20 ng/mL Insufficient at 20 to <30 ng/mL Sufficient at 30-100 ng/mL Toxicity at greater than 100 ng/mL 19 Updated reference range on new analyzer 20 Updated reference range on new analyzer 21 Concerning GFR Guidelines for Americans: Normal function or mild renal disease, if clinically at risk: >/=60 mL/min Moderately decreased: 30-59 Severely decreased: 15-29 Renal failure: <15 22 Concerning GFR Guidelines: Normal function or mild renal disease, if clinically at risk: >/=60 mL/min Moderately decreased: 30-59 Severely decreased: 15-29 Renal failure: <15 Glomerular Filtration Rate (GFR) is estimated based on the MDRD equation, which assumes a steady state for creatinine as recommended by the National Kidney Disease Education Program in conjunction with the National Institutes of Health and the National Kidney Foundation. Clinical conditions in which it may be necessary to measure GFR by using clearance methods include extremes of age and body size, severe malnutrition or obesity, diseases of skeletal muscle, paraplegia or quadriplegia, vegetarian diet, rapidly changing kidney function, and calculation of the dose of potentially toxic drugs that are excreted by the kidneys. 23 Updated reference range on new analyzer 24 Microbiology results SOURCE Clean Catch Midstream FINAL RESULT No growth 25 SPECIMEN DESCRIPTION STOOL SPECIAL REQUESTS NONE RESULT NEGATIVE FOR ENTERIC PATHOGENS BY PCR. NOTE: THIS MOLECULAR ASSAY DETECTS THE FOLLOWING ENTERIC PATHOGENS: CAMPYLOBACTER GROUP (COLI, JEJUNI, ISABELLA), SALMONELLA SPECIES, SHIGELLA SPECIES (DYSENTERIAE, BOYDII, SONNEI, FLEXNERI), VIBRIO GROUP (CHOLERAE, PARAHAEMOLYTICUS), YERSINIA ENTEROCOLITICA, SHIGA TOXIN 1, SHIGA TOXIN 2, NOROVIRUS GROUP 1 AND 2, ROTAVIRUS A REPORT STATUS FINAL 08/12/2017 Unless otherwise specified, testing performed by [facility] [place] [place] [address] 26 SPECIMEN DESCRIPTION STOOL SPECIAL REQUESTS NONE RESULT NEGATIVE FOR GIARDIA BY DFA NEGATIVE FOR CRYPTOSPORIDIUM BY DFA STOOL SPECIMEN SCREENED FOR THE PRESENCE OF GIARDIA LAMBLIA AND CRYPTOSPORIDIUM PARVUM ONLY. FOR PATIENTS FROM OR WITH A HISTORY OF TRAVEL TO A DEVELOPING COUNTRY, OR WHO HAVE PERSISTANT SYMPTOMS AND/OR ARE IMMUNOCOMPROMISED, CALL MICROBIOLOGY TO REQUEST THE REFLEX TEST OAP FOR A COMPREHENSIVE MICROSCOPIC EXAMINATION. SPECIMENS ARE SAVED IN FIXATIVE AND HELD FOR 7 DAYS FROM THE REPORT DATE TO ALLOW THESE TESTS TO BE ADDED ON. REPORT STATUS FINAL 08/13/2017 Unless otherwise specified, testing performed by [facility] [place] [address] 27 PERFORMED AT [facility] [employer] [place] [address] Unless otherwise specified, testing performed by [facility] [place] [address] 28 NOTE: IF REFLEX CULTURE FOR KLEBSIELLA OXYTOCA IS CLINICALLY INDICATED, PLEASE CONTACT THE MICROBIOLOGY LABORATORY ([phone]) WITHIN 3 DAYS OF THIS REPORT. Unless otherwise specified, testing performed by [facility] [place] [address] 29 SPECIMEN DESCRIPTION STOOL RESULT NEGATIVE FOR H. PYLORI ANTIGEN BY EIA REPORT STATUS FINAL 01/06/2017 Unless otherwise specified, testing performed by [facility] [address] [place] [id number] 30 12/26 preOV 31 Per NCEP ATP III Guidelines: Results lower than 40 mg/dL are suggestive of increased risk for coronary artery disease. Results > or=to 60 mg/dL are considered a negative risk factor. 32 Per NCEP ATP III Guidelines: Normal Population <130 Patients with medical conditions: CHD/DM Optimal: <100 Borderline high: 130-159 High: 160-189 Very high: >189 33 Concerning GFR Guidelines: Normal function or mild renal disease, if clinically at risk: >/=60 mL/min Moderately decreased: 30-59 Severely decreased: 15-29 Renal failure: <15 Glomerular Filtration Rate (GFR) is estimated based on the MDRD equation, which assumes a steady state for creatinine as recommended by the National Kidney Disease Education Program in conjunction with the National Institutes of Health and the National Kidney Foundation. Clinical conditions in which it may be necessary to measure GFR by using clearance methods include extremes of age and body size, severe malnutrition or obesity, diseases of skeletal muscle, paraplegia or quadriplegia, vegetarian diet, rapidly changing kidney function, and calculation of the dose of potentially toxic drugs that are excreted by the kidneys. 34 Concerning GFR Guidelines for Americans: Normal function or mild renal disease, if clinically at risk: >/=60 mL/min Moderately decreased: 30-59 Severely decreased: 15-29 Renal failure: <15 35 06/24 preOV 36 Per NCEP ATP III Guidelines: Results lower than 40 mg/dL are suggestive of increased risk for coronary artery disease. Results > or=to 60 mg/dL are considered a negative risk factor. 37 Per NCEP ATP III Guidelines: Normal Population <130 Patients with medical conditions: CHD/DM Optimal: <100 Borderline high: 130-159 High: 160-189 Very high: >189 38 Concerning GFR Guidelines: Normal function or mild renal disease, if clinically at risk: >/=60 mL/min Moderately decreased: 30-59 Severely decreased: 15-29 Renal failure: <15 Glomerular Filtration Rate (GFR) is estimated based on the MDRD equation, which assumes a steady state for creatinine as recommended by the National Kidney Disease Education Program in conjunction with the National Institutes of Health and the National Kidney Foundation. Clinical conditions in which it may be necessary to measure GFR by using clearance methods include extremes of age and body size, severe malnutrition or obesity, diseases of skeletal muscle, paraplegia or quadriplegia, vegetarian diet, rapidly changing kidney function, and calculation of the dose of potentially toxic drugs that are excreted by the kidneys. 39 Concerning GFR Guidelines for Americans: Normal function or mild renal disease, if clinically at risk: >/=60 mL/min Moderately decreased: 30-59 Severely decreased: 15-29 Renal failure: <15 40 12/25 preOV 41 Per NCEP ATP III Guidelines: Results lower than 40 mg/dL are suggestive of increased risk for coronary artery disease. Results > or=to 60 mg/dL are considered a negative risk factor. 42 Per NCEP ATP III Guidelines: Normal Population <130 Patients with medical conditions: CHD/DM Optimal: <100 Borderline high: 130-159 High: 160-189 Very high: >189 43 POSSIBLE UROGENITAL CONTAMINATION. 44 11/28/15 [email or web address] Deleted by Reflex Group [facility] 45 Organism 1 ! URETHRAL RAMA Quantity ! > 100,000 CFU/mL 46 Note: Persistent reduction for 3 months or more in an eGFR <60 mL/min/1.73 m2 defines CKD. Patients with eGFR values >/=60 mL/min/1.73 m2 may also have CKD if evidence of persistent proteinuria is present. The original MDRD equation for estimated GFR is not valid for patients less than 18 years of age. Additional information may be found at www.kdoqi.org. 47 Fastin hours 48 Concerning GFR Guidelines: Normal function or mild renal disease, if clinically at risk: >/=60 mL/min Moderately decreased: 30-59 Severely decreased: 15-29 Renal failure: <15 Glomerular Filtration Rate (GFR) is estimated based on the MDRD equation, which assumes a steady state for creatinine as recommended by the National Kidney Disease Education Program in conjunction with the National Institutes of Health and the National Kidney Foundation. Clinical conditions in which it may be necessary to measure GFR by using clearance methods include extremes of age and body size, severe malnutrition or obesity, diseases of skeletal muscle, paraplegia or quadriplegia, vegetarian diet, rapidly changing kidney function, and calculation of the dose of potentially toxic drugs that are excreted by the kidneys. 49 Concerning GFR Guidelines for Americans: Normal function or mild renal disease, if clinically at risk: >/=60 mL/min Moderately decreased: 30-59 Severely decreased: 15-29 Renal failure: <15 50 Microbiology results SOURCE URINE COLONY COUNT 40,000 CFU/ML PRELIMINARY RESULT Gram Negative Allan. ID & Sensitivity to Follow. FINAL RESULT Escherichia coli (Isolate 1) Sensitivity Analysis Isolate 1 --------- AMIKACIN <=16 S AMPICILLIN <=8 S AMPICILLIN/SULBACTAM <=8/4 S CEFAZOLIN <=2 S CEFEPIME <=8 S CEFTAZIDIME <=1 S CEFTRIAXONE <=1 S CIPROFLOXACIN <=1 S ERTAPENEM <=0.5 S GENTAMYCIN <=2 S IMIPENEM <=1 S LEVOFLOXACIN <=2 S NITROFURANTOIN <=32 S PIPERACILLIN/TAZOBACTAM <=16 S TETRACYCLINE <=4 S TOBRAMYCIN <=4 S TRIMETHOPRIM/SULFAMETHOXAZ <=2/38 S S=Sensitive;I=Indeterminate;R=Resistant 51 06/23 preOV 52 Per NCEP ATP III Guidelines: Results lower than 40 mg/dL are suggestive of increased risk for coronary artery disease. Results > or=to 60 mg/dL are considered a negative risk factor. 53 Per NCEP ATP III Guidelines: Normal Population <130 Patients with medical conditions: CHD/DM Optimal: <100 Borderline high: 130-159 High: 160-189 Very high: >189 54 Concerning GFR Guidelines: Normal function or mild renal disease, if clinically at risk: >/=60 mL/min Moderately decreased: 30-59 Severely decreased: 15-29 Renal failure: <15 Glomerular Filtration Rate (GFR) is estimated based on the MDRD equation, which assumes a steady state for creatinine as recommended by the National Kidney Disease Education Program in conjunction with the National Institutes of Health and the National Kidney Foundation. Clinical conditions in which it may be necessary to measure GFR by using clearance methods include extremes of age and body size, severe malnutrition or obesity, diseases of skeletal muscle, paraplegia or quadriplegia, vegetarian diet, rapidly changing kidney function, and calculation of the dose of potentially toxic drugs that are excreted by the kidneys. 55 Concerning GFR Guidelines for Americans: Normal function or mild renal disease, if clinically at risk: >/=60 mL/min Moderately decreased: 30-59 Severely decreased: 15-29 Renal failure: <15 56 has 12/18 57 Vitamin D deficiency has been defined by the [place] of [employer] and an Endocrine Society practice guideline as a level of serum 25-OH vitamin D less than 20 ng/mL (1,2). The Endocrine Society went on to further define vitamin D insufficiency as a level between 21 and 29 ng/mL (2). 1. IOM ([place] of [employer]). 2010. Dietary reference intakes for calcium and D. [place]: The National Academies Press. 2. Von MF, Jennifer BARRIOS, Opal CURRAN, et al. Evaluation, treatment, and prevention of vitamin D deficiency: an Endocrine Society clinical practice guideline. JCEM. 2010; 96(7):1911-30. Performed at: RN - [facility] [address] [id number] [place] Vat Worker: Sonya Alberto MD, Phone: [phone] 58 Reference Guidelines*: Desirable: ........... < 200 mg/dL Borderline High: ..... 200-239 mg/dL High: ................ >=240 mg/dL * The National Cholesterol Education Program (NCEP) 59 Reference Guidelines*: Normal: ............. < 150 mg/dL Borderline High: .... 150-199 mg/dL High: ............... 200-499 mg/dL Very High: .......... > 500 mg/dL * Source: National Cholesterol Education Program (NCEP) 60 Reference Guidelines*: Low HDL: ..... < 40 mg/dL Normal: ..... 40-60 mg/dL Desirable: ... > 60 mg/dL *The National Cholesterol Education Program(NCEP) 61 Reference Guidelines*: Optimal:........... <100 mg/dL Near Optimal....... 100-129 mg/dL Borderline High.... 130-159 mg/dL High............... 160-189 mg/dL Very High.......... >=190 mg/dL * Source: National Cholesterol Education Program (NCEP) 62 Note: Persistent reduction for 3 months or more in an eGFR <60 mL/min/1.73 m2 defines CKD. Patients with eGFR values >/=60 mL/min/1.73 m2 may also have CKD if evidence of persistent proteinuria is present. The original MDRD equation for estimated GFR is not valid for patients less than 18 years of age. Additional information may be found at www.kdoqi.org. 63 COLONY COUNT ! 10,000 - 20,000 CFU/ml Organism 1 ! MIXED URETHRAL RAMA 64 FASTING 11/22 preOV Procedures Date Code Description Status 12/02/2018 26715 Remove Impact Cerumen Irrigation/Lavage Completed 04/20/2018 [id number] Mammogram Completed 03/15/2018 [id number] Mammogram Completed 12/18/2017 69871 Measure Blood Oxygen Level Single Determination Completed 11/19/2017 [id number] Colonoscopy Completed 10/21/2017 79320 Remove Impact Cerumen Irrigation/Lavage Completed 07/01/2017 37472 Electrocardiogram Complete Completed 04/13/2017 [id number] Bone Mineral Density Test Completed 04/13/2017 87212 Bone Density Study (Dexa) Axial Skeleton Completed (Hips,Pelvis,Spine) 11/26/2015 34807 Measure Blood Oxygen Level Single Determination Completed 08/07/2015 79970 X-Ray Spine Cervical, 4 Or 5 Views Completed 06/20/2015 02933 Remove Skin Tags Up To 15 Completed 06/14/2015 00002 Measure Blood Oxygen Level Single Determination Completed 06/14/2015 63819 Measure Blood Oxygen Level Single Determination Completed 03/12/2015 45085 Bone Density Study (Dexa) Axial Skeleton Completed (Hips,Pelvis,Spine) 03/12/2015 85129 Old Bone Density Study (Dexa) Completed 03/12/2015 [id number] Bone Mineral Density Test Completed 03/12/2015 [id number] Mammogram Completed 02/12/2015 12755 Measure Blood Oxygen Level Single Determination Completed Encounters Type Date Location Provider Dx Diagnosis Office Visit 08/24/2018 LUNA Morrow, 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, 2:30p Greer, DOG WALKER unspecified Office Visit 07/16/2018 LUNA Morrow, K21.9 Gastro-esophageal 1:30p MD Edwin reflux disease without esophagitis R60.9 Edema, unspecified R03.0 Elevated blood-pressure reading, w/o diagnosis of htn M85.80 Oth disrd of bone density and structure, unspecified site E78.00 Pure hypercholesterolemia, unspecified M15.9 Polyosteoarthritis, 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, 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, recurrent, mild R53.83 Other fatigue Z79.899 Other intermediate card tender (current) drug therapy Z96.652 Presence of LEFT artificial knee joint M17.11 Unilateral primary osteoarthritis, RIGHT knee Z68.29 Body mass index (BMI) 29.0-29.9, adult Office Visit 04/20/2018 11:15a [facility] Edwin Morrow MD L03.211 Cellulitis of face Office Visit 03/12/2018 4:00p [facility] Adeline Lawton PA N64.4 Mastodynia Z68.29 Body mass index (BMI) 29.0-29.9, adult Office Visit 03/04/2018 9:45a [facility] Edwin Morrow, M25.579 Pain in unspecified MD ankle and joints of unspecified foot K21.9 Gastro-esophageal reflux disease without esophagitis Z68.29 Body mass index (BMI) 29.0-29.9, adult Office Visit 01/05/2018 1:30p [facility] Edwin Morrow, R03.0 Elevated blood-pressure MD reading, w/o diagnosis of htn E78.00 Pure hypercholesterolemia, unspecified M85.80 Oth disrd of bone density and structure, unspecified site M15.9 Polyosteoarthritis, unspecified K21.9 Gastro-esophageal reflux disease without esophagitis G60.9 Hereditary and idiopathic neuropathy, 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, recurrent, mild M51.36 Other intervertebral disc degeneration, lumbar region Office Visit 12/18/2017 2:00p [facility] Hannah Wilde MD J06.9 Acute upper respiratory infection, unspecified Office Visit 12/01/2017 10:45a [facility] Edwin Morrow, R10.13 Epigastric pain MD Office Visit 10/21/2017 10:45a [facility] Edwin Morrow, Z00.00 Encntr for general MD adult medical exam w/o abnormal findings H61.23 Impacted cerumen, bilateral A09 Infectious gastroenteritis and colitis, unspecified Z68.28 Body mass index (BMI) 28.0-28.9, adult Office Visit 09/29/2017 1:45p [facility] Greer Morrow NP R30.0 Dysuria Office Visit 08/13/2017 2:30p [facility] Adeline Lawton PA M54.5 Low back pain M79.671 Pain in RIGHT foot M79.672 Pain in LEFT foot Office Visit 08/10/2017 4:15p [facility] Adeline Lawton PA R19.7 Diarrhea, unspecified Office Visit 07/01/2017 1:00p [facility] Odalys M51.36 Other intervertebral MD Edwin disc degeneration, lumbar region Z01.810 Encounter for preprocedural cardiovascular examination R03.0 Elevated blood-pressure reading, w/o diagnosis of htn E78.00 Pure hypercholesterolemia, unspecified K21.9 Gastro-esophageal reflux disease without esophagitis G60.9 Hereditary and idiopathic neuropathy, unspecified M15.9 Polyosteoarthritis, unspecified R60.9 Edema, unspecified M85.80 Oth disrd of bone density and structure, unspecified site Office Visit 05/14/2017 9:45a [facility] Edwin Morrow M85.89 Oth disrd of bone MD density and structure, multiple sites Office Visit 02/26/2017 2:30p [facility] Reji Lockhart DO M51.36 Other intervertebral disc degeneration, lumbar region M48.06 Spinal stenosis, lumbar region Office Visit 12/31/2016 1:00p [facility] Edwin Morrow MD R10.13 Epigastric pain R03.0 Elevated blood-pressure reading, w/o diagnosis of htn E78.00 Pure hypercholesterolemia, unspecified M85.80 Oth disrd of bone density and structure, unspecified site M15.9 Polyosteoarthritis, unspecified M51.36 Other intervertebral disc degeneration, lumbar region F33.0 Major depressive disorder, recurrent, mild Office Visit 12/10/2016 4:30p [facility] Edwin Morrow, R10.13 Epigastric pain MD Office Visit 10/09/2016 8:30a [facility] Zehra Linares PA H61.21 Impacted cerumen, RIGHT ear H68.001 Unspecified Eustachian salpingitis, RIGHT ear Office Visit 08/27/2016 11:00a Edwin Starks MD Z00.00 Encntr for general adult medical exam w/o abnormal findings Z68.28 Body mass index (BMI) 28.0-28.9, adult F33.0 Major depressive disorder, recurrent, mild M51.36 Other intervertebral disc degeneration, lumbar region R03.0 Elevated blood-pressure reading, w/o diagnosis of htn M85.80 Oth disrd of bone density and structure, unspecified site Office Visit 06/30/2016 1:00p [facility] Edwin Morrow A09 Infectious MD gastroenteritis and colitis, unspecified R03.0 Elevated blood-pressure reading, w/o diagnosis of htn K21.9 Gastro-esophageal reflux disease without esophagitis E78.0 Pure hypercholesterolemia M85.80 Oth disrd of bone density and structure, unspecified site M51.36 Other intervertebral disc degeneration, lumbar region F33.0 Major depressive disorder, recurrent, mild M15.9 Polyosteoarthritis, unspecified Office Visit 06/23/2016 11:15a Edwin Starks A09 Infectious MD gastroenteritis and colitis, unspecified Office Visit 06/04/2016 11:15a Edwin Starks, R21 Rash and other MD nonspecific skin eruption R53.1 Weakness M54.2 Cervicalgia Office Visit 04/29/2016 9:45a Edwin Starks MD R60.9 Edema, unspecified M51.36 Other intervertebral disc degeneration, lumbar region Office Visit 02/19/2016 9:00a Edwin Starks MD K62.5 Hemorrhage of anus and rectum M51.36 Other intervertebral disc degeneration, lumbar region Office Visit 02/11/2016 2:00p Edwin Starks M51.36 Other intervertebral MD disc degeneration, lumbar region M47.22 Other spondylosis with radiculopathy, cervical region F33.0 Major depressive disorder, recurrent, mild Office Visit 12/24/2015 1:00p Edwin Starks M51.36 Other intervertebral MD disc degeneration, lumbar region R03.0 Elevated blood-pressure reading, w/o diagnosis of htn K21.9 Gastro-esophageal reflux disease without esophagitis M15.9 Polyosteoarthritis, unspecified R60.9 Edema, 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, unspecified M85.80 Oth disrd of bone density and structure, unspecified site F33.0 Major depressive disorder, recurrent, mild Z79.899 Other fci (current) drug therapy E78.0 Pure hypercholesterolemia Office Visit 11/30/2015 3:30p [facility] Edwin Morrow MD R53.1 Weakness R11.0 Nausea M51.36 Other intervertebral disc degeneration, lumbar region Office Visit 11/28/2015 8:15a [facility] Edwin Morrow MD R53.1 Weakness R11.0 Nausea Office Visit 11/26/2015 9:30a [facility] Greer Morrow DOG WALKER R53.1 Weakness R53.83 Other fatigue Office Visit 10/11/2015 1:00p [facility] Zehra Linares, PA R30.0 Dysuria M54.5 Low back pain Office Visit 09/07/2015 2:15p [facility] Edwin Morrow MD M54.2 Cervicalgia M47.22 Other spondylosis with radiculopathy, cervical region Office Visit 08/07/2015 3:30p [facility] Edwin Morrow MD M54.2 Cervicalgia R20.2 Paresthesia of skin Office Visit 07/26/2015 11:30a [facility] Zehra Linares, 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 Office Visit 06/20/2015 1:00p [facility] Odalys, 272.0 Hypercholesterolemia Pure MD Edwin 530.81 Esophageal Reflux 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 V43.65 Knee Replacement By Other Means V03.82 Streptococcus Pneumoniae Vaccination Spec Other 701.9 Hypertrophic & Atrophic Conditions Of Skin Unspec 733.90 Bone & Cartilage Disorder Unspec 782.3 Edema V76.10 Screening For Malignant Neoplasm Breast Office Visit 05/10/2015 11:15a [facility] Edwin Morrow, 380.4 Impacted Maureen CAMPOVERDE Office Visit 02/12/2015 10:00a [facility] Hannah Wilde MD 466.0 Bronchitis Acute Office Visit 12/20/2014 3:00p [facility] Edwin Morrow, V43.65 Knee Replacement By MD Other Means 300.00 Anxiety State Unspec 530.81 Esophageal Reflux 272.0 Hypercholesterolemia Pure 796.2 Blood Pressure Reading Elevated W/O Hypertension 715.00 Osteoarthrosis Generalized Site Unspec V58.69 Medications [facility] (Current) Use Encounter Plan of Treatment Future Appointment(s):01/19/2019 8:35 am - Schedule, Laboratory at [facility]2018 1:30 pm - Edwin Morrow MD at [facility]12/28/2018 - Edwin Morrow, MDM54.5 Low back painFollow up:Follow up as wzqwukeyjU97.62 Trochanteric bursitis, LEFT hip
[2019-01-14 15:20] VITALS: BP 138/67
--- NOTE | 2019-01-14 15:38 | UC ---
Eye Complaint HPI - HPI Summary HPI Summary: 78-year-old woman comes in with a chief complaint of redness in the right eye. She woke up yesterday morning with it. Was on the medial aspect overlying sclera. Swallowing when she woke up the redness has spread almost throughout the whole sclera. It does not include the Iris and pupil. Has no pain no blurred vision. She is not on any blood thinners. No known trauma. She does wear glasses but she does not wear contacts. Does not have any upper respiratory tract infection symptoms there is no drainage. - History of Current Complaint Chief Complaint: UCEye Stated Complaint: RIGHT EYE COMPLAINT Time Seen by Provider: 01/14/19 15:18 Pain Intensity: 0 - Allergies/Home Medications Allergies/Adverse Reactions: Allergies Allergy/AdvReac Type Severity Reaction Status Date / Time amoxicillin Allergy Rash Verified 01/14/19 15:13 doxycycline Allergy GI Upset Verified 01/14/19 15:13 Iodinated Contrast- Oral and Allergy Itching Verified 01/14/19 15:13 IV Dye oxycodone Allergy Itching Verified 01/14/19 15:13 sulfamethoxazole Allergy Pain Verified 01/14/19 15:13 [From Bactrim] trimethoprim [From Bactrim] Allergy Pain Verified 01/14/19 15:13 Flu vaccine Allergy See Comment Uncoded 01/14/19 15:13 Hydrocodone 7.5/ Ibuprofen Allergy Unknown Uncoded 01/14/19 15:13 200 Reaction Details oxycodone Allergy Itching Uncoded 01/14/19 15:13 Home Medications: Home Medications Alendronate TAB (NF) [Fosamax TAB (NF)] 1 tab WEEKLY 01/14/19 [History Confirmed 01/14/19] Glucosam/Chondr/Collagn/Hyalur [Glucosamine & Chondroitin Cap] 1 cap DAILY 01/14 [History Confirmed 01/14/19] PMH/Surg Hx/FS Hx/Imm Hx Previously Healthy: Yes - Surgical History Surgical History: Yes Surgery Procedure, Year, and Place: 07/16/2017 L4 L5 plate screw and shay done at [facility]; Appendectomy, 1957. Tubal Ligation, 1976. L5 S1 Partial Discectomy, 1978. Breast Reduction, 2001. Left and Right Shoulder Surgeries "from repetative", 2002 and 2004. Right Carpal Tunnel Release and Tendon Repair , 2006. Total left Knee replacement. Bunion and Toes Surgeries - Family History Known Family History: Positive: None - Social History Alcohol Use: Rare Substance Use Type: None Smoking Status (MU): Never Smoked Tobacco - Immunization History Most Recent Influenza Vaccination: "Allergic" Review of Systems All Other Systems Reviewed And Are Negative: Yes Constitutional: Positive: Negative Skin: Positive: Negative Eyes: Positive: Eye Redness ENT: Positive: Negative Respiratory: Positive: Negative Gastrointestinal: Positive: Negative Motor: Positive: Negative Neurovascular: Positive: Negative Musculoskeletal: Positive: Negative Neurological: Positive: Negative Psychological: Positive: Negative Is Patient Immunocompromised?: No Physical Exam Triage Information Reviewed: Yes Appearance: Well-Appearing, No Pain Distress, Well-Nourished Vital Signs: Initial Vital Signs Temp 97.7 F 01/14/19 15:16 Pulse 78 01/14/19 15:16 Resp 16 01/14/19 15:16 BP 138/67 01/14/19 15:16 Pulse Ox 96 01/14/19 15:16 Vital Signs Reviewed: Yes Eyes: Positive: Other: - Right eye has subconjunctival hemorrhage diffusely throughout sclera more prominent in the medial aspect. There is negative for not involved. PERRLA EOMI. No photophobia. No hyphema. ENT Exam: Normal ENT: Positive: TMs normal. Negative: Nasal congestion, Nasal drainage Neck exam: Normal Neck: Positive: Supple Respiratory: Positive: Lungs clear, Normal breath sounds, No respiratory distress Cardiovascular: Positive: RRR Musculoskeletal Exam: Normal Musculoskeletal: Positive: Strength Intact, ROM Intact Neurological Exam: Normal Neurological: Positive: Alert, Muscle Tone Normal Psychological Exam: Normal Psychological: Positive: Age Appropriate Behavior Skin Exam: Normal Eye Complaint Course/Dx - Course Course Of Treatment: I discussed the diagnosis with the patient. The plan is to follow-up with her sensor specialist if not completely improved or if she worsens. At this time she has no eye pain or blurred vision. - Differential Dx/Diagnosis Provider Diagnosis: Subconjunctival hemorrhage of right eye Discharge - Sign-Out/Discharge Documenting (check all that apply): Patient Departure All imaging exams completed and their final reports reviewed: No Studies - Discharge Plan Condition: Stable Disposition: HOME Patient Education Materials: Subconjunctival Hemorrhage (ED) Referrals: Edwin Morrow MD [Primary Care Provider] - Additional Instructions: FOLLOW UP WITH YOUR BRAND COORDINATOR IF NOT COMPLETELY IMPROVED. GET RECHECKED FOR ANY WORSENING OF YOUR CONDITION; EYE PAIN, BLURRED VISION, YOU FEEL ILL OR QUESTIONS OR CONCERNS. - Billing Disposition and Condition Condition: STABLE Disposition: Home
== END 2019-01-14 15:43 | disposition home or self-care (01) ==
LOC: UCCORT 13:27
DX: H11.31 Conjunctival hemorrhage, right eye (principal); Z88.0 Allergy status to penicillin; Z88.1 Allergy status to other antibiotic agents; Z91.041 Radiographic dye allergy status; Z88.7 Allergy status to serum and vaccine; Z88.5 Allergy status to narcotic agent
CPT/HCPCS: 99211; G0463

== ENCOUNTER 2019-02-13 14:49 | Emergency (ER) | payer MEDICARE ==
--- OUTSIDE RECORDS SUMMARY | 2019-02-13 14:59 | XMS REPORT | Continuity of Care Document ---
:1940 External Reference #:[id number] Author Name Jennifer De Paz Care Team Providers Name Role Phone Edwin Morrow MD Primary Care Physician Unavailable Payers Date Identification Numbers Payment Provider Subscriber Policy Number: [id number] Medicare Yuliya Card PayID: [id number] [address] [place] [address] Expires: 2018 Policy Number: [id number] Medicare Yuliya Card PayID: [id number] [address] [facility] [address] Policy Number: [id number] [facility] Yuliya Card PayID: [id number] [address] [place] [address] Advance Directives Description No Information Available Problems Date Description Provider Status Onset: 06/16/2018 Localized, primary osteoarthritis Carla Mesa M.D. Active Onset: 06/16/2018 Arthroplasty of knee Carla Mesa M.D. 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, subsequent encounter Family History Date Family Member(s) Observation Comments General Diabetes General Heart Disease General Stroke General Cancer General Rheumatoid Arthritis General factor 5 clotting Social History Type Date Description Comments Sex Unknown Lives With Alone Occupation Retired ETOH Use Denies alcohol use Tobacco Use Start: Unknown Patient has never smoked Smoking Status Reviewed: 01/26/19 Patient has never smoked Exercise Type/Frequency Exercises sporadically Allergies, Adverse Reactions, Alerts Date Description Reaction Status Severity Comments 06/16/2018 Amoxicillin Active 06/16/2018 Oxycontin Active 06/16/2018 CT Dye Active 06/16/2018 Flu Shot Active 06/16/2018 Nitrofurantoin Active Medications Medication Date Status Form Strength Qnty SIG Indications Ordering Provider Omeprazole Active Capsules 20mg Digiovanna 000 Edwin MONGE MD Multivitamin Active Unknown 000 Calcium + D Active Unknown 000 Acetaminophen Active Tablets 325mg 2 tablets Unknown 000 by mouth every 6 hours as needed for pain/feve r Metamucil Active Unknown 000 Alendronate Active Tablets 70mg Digiovanna Sodium Edwin Baird MD Clindamycin HCL Active Capsules 300mg [place]owski, 000 Landen Quintana MD Glucosamine Active Capsules 1500Com Unknown Chondroitin 1500 000 Complex Equate Active Liquid Unknown 000 Cando 3 Hx Unknown 000 - 018 Equate Hx Unknown 000 - 018 Immunizations Description No Information Available Vital Signs Date Vital Result Comment 01/26/2019 9:59am Height 60 inches 5'0" Weight 146.00 lb BP Systolic 141 mmHg BP Diastolic 79 mmHg Respiratory Rate 15 /min Pain Level 4 BMI (Body Mass Index) 28.5 kg/m2 09/06/2018 11:17am Height 60 inches 5'0" Heart Rate 84 /min BP Systolic 122 mmHg BP Diastolic 68 mmHg Body Temperature 97.2 F Pain Level 0 08/02/2018 10:06am Height 60 inches 5'0" Weight 148.00 lb Heart Rate 84 /min BP Systolic 118 mmHg BP Diastolic 76 mmHg BMI (Body Mass Index) 28.9 kg/m2 07/19/2018 11:57am Height 61.5 inches 5'1.50" Weight 148.00 lb Heart Rate 68 /min BP Systolic 118 mmHg BP Diastolic 74 mmHg Respiratory Rate 12 /min Pain Level 1 BMI (Body Mass Index) 27.5 kg/m2 06/16/2018 11:49am Height 61.5 inches 5'1.50" Weight 151.00 lb Heart Rate 88 /min BP Systolic 140 mmHg BP Diastolic 84 mmHg BMI (Body Mass Index) 28.1 kg/m2 Results Description No Information Available Procedures Description No Information Available Encounters Type Date Location Provider Dx Diagnosis Office Visit 09/06/2018 [facility] Mes[facility], M25.561 Pain in right 11:00a [facility] M.[facility]. 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 M.[facility] 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 M.[facility] 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 M.[facility] knee M25.561 Pain in right knee M25.462 Effusion, left knee M25.461 Effusion, right knee M17.11 Unilateral primary osteoarthritis, right knee Z96.652 Presence of left artificial knee joint M21.061 Valgus deformity, not elsewhere classified, right knee T84.023A Instability of internal left knee prosthesis, init encntr Plan of Treatment Future Appointment(s):03/09/2019 9:30 am - Carla Mesa M.D. at [facility]01/26/2019 - aCrla Mesa M.D.M25.561 Pain in right kneeNew Xrays:Knees Bilateral, Ordered: 03/20/19Follow up:Follow up: 7-10 days before cqminztS19.461 Effusion, right kneeM17.11 Unilateral primary osteoarthritis, right kneeT84.023D Instability of internal left knee prosthesis, subsequent encM25.562 Pain in left kneeNew Xrays:Knees Bilateral, Ordered: 01/26/19Z96.652 Presence of left artificial knee joint
--- OUTSIDE RECORDS SUMMARY | 2019-02-13 14:59 | XMS REPORT | Continuity of Care Document ---
:1940 External Reference #:[id number] Author Name Edwin Morrow MD Address [address] [address] Care Team Providers Name Role Phone Edwin Morrow MD Care Team Information [employer] Unavailable Payers Date Identification Numbers Payment Provider Subscriber Effective: 2005 Policy Number: [id number] Medicare Yuliya Card PayID: [id number] [address] [place] [address] Policy Number: [id number] [facility] Healthcare Options Yuliya Card PayID: [id number] [address] [place] [address] Advance Directives Description No Information Available Problems Date Description Provider Status Onset: 10/23/2014 Anxiety state Edwin Morrow MD Active Onset: 10/23/2014 Arthroplasty of knee Edwin Morrow MD Active Onset: 03/18/2005 Idiopathic peripheral neuropathy Edwin Morrow MD Active Onset: 03/18/2005 Gastroesophageal reflux disease Edwin Morrow MD Active Onset: 06/27/2005 Pure hypercholesterolemia Edwin Morrow MD Active Onset: 03/30/2007 Benign [...] rhinitis Edwin Morrow MD Inactive Inactive: 12/24/2015 Onset: 08/01/2005 Mild recurrent major depression Edwin Morrow MD Resolved Resolved: 02/01/2019 Family History Date Family Member(s) Observation Comments [...] Status Reviewed: 01/26/19 Patient has never smoked Allergies, Adverse Reactions, [...] Form Strength Qnty SIG Indications Ordering Provider Cephalexin 02/01/ Active Capsules 500mg 15caps 1 by N39.0 Heatheriovincent 2018 mouth , Edwin, three MD times a day for 5 days Fish Oil 03/04/ Active Capsules 1000mg 1 by E78.00 [facility] [place]-3 2017 mouth Edwin, every day MD otc Fluticasone 12/18/ Active Suspension 50mcg/Act 15.800 1-2 J06.9 Wilde Propionate 2018 ml sprays to , MD Hannah each nostril daily as needed Multivitamin 05/14/ Active Tablets Adlt 50+ 90tabs 1 by Odalys Adults 50+ 2016 Edwin huang, every day Alendronate 05/14/ Active Tablets 70mg 12tabs take 1 M85.89 Od[facility]ys Sodium 2017 tablet , Edwin, ladarius MD week in the morning - take with 8oz water and remain upright and nothing by mouth for 30 minutes M85.80 Acetaminophen 03/12/2017 Active Tablets ER 650mg otc 2 by M51.36 Odalys, ER reina Pindea MD twice a day as needed for pain Calcium Active Chewtabs 500mg 2 po bid M85.80 Odalys, Carbonate prn Edwin Dorantes MD Antacid Vitamin E Active Capsules 600Unit One by Unknown mouth daily Clindamycin HCL 10/05/2018 - Hx Capsules 300mg 2caps 2 pills Digiovanna, 10/07/2018 by mouth MD Edwin 1 hour pre-denta l work Ranitidine 150 08/24/2018 - Hx Tablets 150mg 30tab 1 by R10.10 Shannanvanmarie, Maximum 01/26/2019 s mouth Greer, PARTS ADMINISTRATOR Strength twice a day as needed Azithromycin 04/20/2018 - Hx Tablets 250mg 6tabs 2 pills L03.211 Digiovanna, 04/30/2018 by reina Pineda MD day 1, then 1 pill once daily for 4 more days (take w/ food) Ciprofloxacin 09/29/2017 - Hx Tablets 250mg 10tab 1 by R30.0 Digiovanna , HCL 10/04/2017 s mouth Greer, PARTS ADMINISTRATOR twice a day for 5 days Tizanidine [...] Caps DR 30mg 90cap take one M51.36 Digiovanna, 01/05/2018 Part s capsule MD Edwin by mouth every day G60.9 F33.0 Azelastine 10/09/2016 - Hx Solution 0.15% 30ml spray 1 H68.001 Madden, HCL (Nasal) 07/01/2017 spray in samuel Palmer DO nostril two times a day Frye 08/27/2016 - Hx Capsules one daily Digiovanna [facility] 03/04/2018 or use , ann-marie Pineda MD daily both over the counter Kaopectate 06/23/2016 - Hx Suspension 525mg/15 as A09 Digiovanna Extra 06/30/2016 ML directed , Nathan Pineda MD Loperamide 06/23/2016 - Hx Capsules 2mg 90caps take one A09 Digiovanna HCL 06/30/2016 capsule by , reina Pineda MD three times a day as needed for loose stools Cephalexin 06/04/2016 - Hx Tablets 250mg 15tabs 1 pill by R21 Digclaudevanna 06/09/2016 mouth 3 Edwin, times a MD day for 5 days Duloxetine 12/06/2015 - Hx Caps DR Kumar 20mg 30caps 1 by mouth M51.36 Digiovanna HCL 02/26/2017 every day , MD Edwin G60.9 F33.0 Citalopram 12/05/2015 - Hx Tablets 10mg 30tabs 1 by M51.36 Odalys Hydrobromide Unknown mouth MD Edwin every day G60.9 F32.8 Duloxetine HCL 12/04/2015 - Hx Caps DR 20mg 30caps 1 by M51.36 Odalys, 05/26/2016 [...] Tablets 1mg 1tabs 1 by mouth 1 Digiovanna, 09/03/2015 hour pre-MRI MD Edwin Tramadol HCL 08/14/2015 - Hx Tablets 50mg 30tabs 1/2 or 1 M54.2 Digiovanna, 02/26/2017 pill by MD Edwin mouth 3 times a day as neededfor neck and arm pain R20.2 Prednisone 08/07/2015 - Hx Tablets 20mg 10tabs 1 pill by M54.2 Heatheriovanmarie, 09/18/2015 mouth MD Edwin twice a day with food for 5 days Tizanidine HCL 07/26/2015 - Hx Tablets 2mg 14tabs 1-2 po 733.6 Madden, 08/03/2015 qhs prn Spencer DO pain Biotin 02/08/2015 - Hx Tablets OTC 1 PO qd Digiovanna, 12/31/2016 MD Edwin Citalopram 11/07/2014 - Hx Tablets 20mg 1/2 by 300.00 Digiovanmarie, Hydrobromide 12/04/2014 mouth MD Edwin every day Naproxen 10/23/2014 - Hx Tablets 375mg 180tabs 1 by M15.0 Digiovanna, 12/10/2016 mouth MD Edwin twice a day [...] Take Two K21 Digiovanna, 08/24/2018 Capsules By .Judy Pineda MD Mouth Every Morning R10.13 [place] 50 10/09/2008 - Hx Capsules 1000mg 3PO [...] day Immunizations CPT Code Status Date Vaccine Reaction Lot # 23848 Given 01/28/2019 Shingrix (Shingles) Zoster Vaccine HZV, KINNEYS Recombinant, Subunit, Adj 44513 Given 06/20/2015 Prevnar 13 Pneumococal Conjugate Vaccine [id number] 29672 Given 06/02/2012 Tdap (Adacel) Ages 7 And Above Only 97780 Given 10/09/2008 Pneumococcal 23 Immunization Adult Or Immunosuppressed Patient 85239 Given 10/09/2008 Pneumococcal 23 Immunization Adult Or Immunosuppressed Patient 78677 Given 10/04/2007 Zoster (Zostavax) 32507 Refused 07/16/2018 Fluzone Highdose Age 65 And Over Preservative & Antibiotic Free 03160 Refused 09/29/2017 Influenza Vac, Quadrivalent, Split, 0.5mL Dosage, [id number] Im Use Vital Signs Date Vital Result Comment 02/01/2019 4:57pm Body Temperature 98.6 F Heart Rate 86 /min Respiratory Rate 16 /min BP Systolic 128 mmHg BP Diastolic 76 mmHg Height 60 inches 5'0" Weight 148.00 lb BMI (Body Mass Index) 28.9 kg/m2 O2 % BldC Oximetry 97 % Ra 01/26/2019 1:24pm Heart Rate 72 /min BP Systolic 132 mmHg BP Diastolic 80 mmHg Height 60 inches 5'0" Weight 148.00 lb BMI (Body Mass Index) 28.9 kg/m2 12/28/2018 11:19am Heart Rate 74 /min Respiratory Rate 18 /min BP Systolic 124 mmHg BP Diastolic 68 mmHg Weight 151.50 lb 12/02/2018 2:14pm Body Temperature 98.0 F Heart Rate 70 /min Respiratory Rate 18 /min BP Systolic 134 mmHg BP Diastolic 72 mmHg Height 60 inches 5'0" Weight 152.00 lb BMI (Body Mass Index) 29.7 kg/m2 08/24/2018 2:26pm Body Temperature 98.3 F tympanic Heart Rate 76 /min Respiratory Rate 16 /min BP Systolic 128 mmHg BP Diastolic 84 mmHg Height 60 inches 5'0" Weight 151.50 lb BMI (Body Mass Index) 29.6 kg/m2 07/16/2018 1:27pm Heart Rate 74 /min Respiratory Rate 16 /min BP Systolic 132 mmHg BP Diastolic 66 mmHg Height 60 inches 5'0" Weight 150.00 lb BMI (Body Mass Index) 29.3 kg/m2 04/20/2018 11:21am Heart Rate 72 /min Respiratory Rate 18 /min BP Systolic 120 mmHg BP Diastolic 80 mmHg Height 60 inches 5'0" Weight 151.00 lb BMI (Body Mass Index) 29.5 kg/m2 03/12/2018 4:00pm Heart Rate 70 /min Respiratory Rate 18 /min BP Systolic 146 mmHg BP Diastolic 70 mmHg Height 60 inches 5'0" 03/04/18 Weight 150.00 lb BMI (Body Mass Index) 29.3 kg/m2 03/04/2018 9:55am Heart Rate 88 /min Respiratory Rate 18 /min BP Systolic 122 mmHg BP Diastolic 70 mmHg Height 60 inches 5'0" 03/04/18 Weight 150.00 lb BMI (Body Mass Index) 29.3 kg/m2 01/05/2018 12:58pm Heart Rate 74 /min Respiratory Rate 18 /min BP Systolic 120 mmHg BP Diastolic 76 mmHg Height 60 inches 5'0" Weight 148.00 lb BMI (Body Mass Index) 28.9 kg/m2 12/18/2017 1:52pm Body Temperature 98.4 F Heart Rate 88 /min Respiratory Rate 18 /min BP Systolic 132 mmHg BP Diastolic 72 mmHg Height 60 inches 5'0" Weight 148.00 lb BMI (Body Mass Index) 28.9 kg/m2 O2 % BldC Oximetry 95 % ra 12/01/2017 10:42am Heart Rate 72 /min Respiratory Rate 18 /min BP Systolic 120 mmHg BP Diastolic 80 mmHg Height 60 inches 5'0" Weight 147.00 lb BMI (Body Mass Index) 28.7 kg/m2 10/21/2017 10:43am Heart Rate 72 /min Respiratory Rate 18 /min BP Systolic 122 mmHg BP Diastolic 82 mmHg Height 60 inches 5'0" Weight 145.00 lb BMI (Body Mass Index) 28.3 kg/m2 09/29/2017 1:58pm Body Temperature 97.7 F Heart Rate 94 /min Respiratory Rate 16 /min BP Systolic 120 mmHg BP Diastolic 78 mmHg Height 60 inches 5'0" Weight 148.00 lb BMI (Body Mass Index) 28.9 kg/m2 08/13/2017 2:27pm Heart Rate 68 /min Respiratory Rate 18 /min BP Systolic 128 mmHg BP Diastolic 70 mmHg Height 60 inches 5'0" Weight 144.00 lb BMI (Body Mass Index) 28.1 kg/m2 08/10/2017 4:15pm Body Temperature 97.5 F Heart Rate 70 /min Respiratory Rate 18 /min BP Systolic 132 mmHg BP Diastolic 70 mmHg Height 60 inches 5'0" Weight 138.00 lb BMI (Body Mass Index) 26.9 kg/m2 07/01/2017 1:00pm Heart Rate 74 /min Respiratory Rate 18 /min BP Systolic 130 mmHg BP Diastolic 80 mmHg Height 60 inches 5'0" Weight 150.00 lb BMI (Body Mass Index) 29.3 kg/m2 05/14/2017 9:32am Heart Rate 74 /min Respiratory Rate 18 /min BP Systolic 130 mmHg BP Diastolic 80 mmHg Height 60 inches 5'0" Weight 151.00 lb BMI (Body Mass Index) 29.5 kg/m2 02/26/2017 2:27pm Heart Rate 92 /min Respiratory Rate 18 /min BP Systolic 136 mmHg BP Diastolic 80 mmHg Height 60 inches 5'0" Weight 152.50 lb BMI (Body Mass Index) 29.8 kg/m2 12/31/2016 1:00pm Heart Rate 68 /min Respiratory Rate 18 /min BP Systolic 148 mmHg BP Diastolic 80 mmHg BP Systolic Recheck 136 mmHg L at rest BP Diastolic Recheck 78 mmHg L at rest Height 60 inches 5'0" Weight 151.19 lb BMI (Body Mass Index) 29.5 kg/m2 12/10/2016 4:21pm Body Temperature 97.9 F Heart Rate 74 /min Respiratory Rate 18 /min BP Systolic 134 mmHg BP Diastolic 80 mmHg Height 60 inches 5'0" Weight 150.00 lb BMI (Body Mass Index) 29.3 kg/m2 10/09/2016 8:38am Body Temperature 97.0 F Heart Rate 74 /min Respiratory Rate 18 /min BP Systolic 122 mmHg BP Diastolic 78 mmHg Height 60 inches 5'0" Weight 151.00 lb BMI (Body Mass Index) 29.5 kg/m2 08/27/2016 11:02am Heart Rate 74 /min Respiratory Rate 18 /min BP Systolic 126 mmHg BP Diastolic 80 mmHg Height 60 inches 5'0" Weight 144.00 lb BMI (Body Mass Index) 28.1 kg/m2 06/30/2016 12:59pm Heart Rate 72 /min Respiratory Rate 18 /min BP Systolic 120 mmHg BP Diastolic 78 mmHg Height 60 inches 5'0" Weight 147.00 lb BMI (Body Mass Index) 28.7 kg/m2 06/23/2016 11:26am Body Temperature 97.4 F Heart Rate 72 /min Respiratory Rate 18 /min BP Systolic 130 mmHg BP Diastolic 80 mmHg Height 60 inches 5'0" Weight 145.00 lb BMI (Body Mass Index) 28.3 kg/m2 06/04/2016 11:10am Body Temperature 98.1 F Heart Rate 74 /min Respiratory Rate 18 /min BP Systolic 120 mmHg BP Diastolic 72 mmHg Height 60 inches 5'0" Weight 146.00 lb BMI (Body Mass Index) 28.5 kg/m2 04/29/2016 9:50am Heart Rate 74 /min Respiratory Rate 18 /min BP Systolic 140 mmHg BP Diastolic 80 mmHg Weight 149.00 lb 02/19/2016 9:04am Body Temperature 97.5 F Heart Rate 72 /min Respiratory Rate 18 /min BP Systolic 120 mmHg BP Diastolic 80 mmHg Height 60.1 inches 5'0.10" Weight 146.00 lb BMI (Body Mass Index) 28.4 kg/m2 02/11/2016 1:54pm Heart Rate 74 /min Respiratory Rate 18 /min BP Systolic 140 mmHg BP Diastolic 88 mmHg Height 60.1 inches 5'0.10" Weight 147.00 lb BMI (Body Mass Index) 28.6 kg/m2 12/24/2015 1:02pm Heart Rate 90 /min Respiratory Rate 16 /min BP Systolic 132 mmHg BP Diastolic 86 mmHg Height 60.1 inches 5'0.10" Weight 143.00 lb BMI (Body Mass Index) 27.8 kg/m2 11/30/2015 3:31pm Body Temperature 98.4 F tymp Heart Rate 96 /min Respiratory Rate 18 /min BP Systolic 118 mmHg L/Reg BP Diastolic 74 mmHg L/Reg Height 60.1 inches 5'0.10" Weight 144.00 lb BMI (Body Mass Index) 28.0 kg/m2 11/28/2015 8:20am Body Temperature 98.6 F Heart Rate 112 /min Respiratory Rate 20 /min BP Systolic 132 mmHg L/Reg BP Diastolic 74 mmHg L/Reg Height 60.1 inches 5'0.10" Weight 139.00 lb BMI (Body Mass Index) 27.1 kg/m2 11/26/2015 9:31am Body Temperature 98.3 F Heart Rate 110 /min Respiratory Rate 19 /min BP Systolic 130 mmHg BP Diastolic 80 mmHg Height 60.1 inches 5'0.10" Weight 144.00 lb BMI (Body Mass Index) 28.0 kg/m2 O2 % BldC Oximetry 96 % Ra 10/11/2015 1:09pm Body Temperature 98.2 F Heart Rate 72 /min Respiratory Rate 18 /min BP Systolic 122 mmHg BP Diastolic 70 mmHg Height 60.1 inches 5'0.10" Weight 156.00 lb BMI (Body Mass Index) 30.4 kg/m2 09/07/2015 2:21pm Heart Rate 84 /min Respiratory Rate 17 /min BP Systolic 138 mmHg L/Reg BP Diastolic 86 mmHg L/Reg Height 60.1 inches 5'0.10" Weight 152.00 lb BMI (Body Mass Index) 29.6 kg/m2 08/07/2015 3:37pm Heart Rate 78 /min Respiratory Rate 21 /min BP Systolic 132 mmHg L/Reg BP Diastolic 82 mmHg L/Reg Height 60.1 inches 5'0.10" Weight 152.00 lb BMI (Body Mass Index) 29.6 kg/m2 07/26/2015 11:40am Heart Rate 78 /min Respiratory Rate 18 /min BP Systolic 128 mmHg BP Diastolic 76 mmHg Height 60.5 inches 5'0.50" Weight 151.00 lb BMI (Body Mass Index) 29.0 kg/m2 06/20/2015 1:01pm Heart Rate 76 /min Respiratory Rate 18 /min BP Systolic 122 mmHg BP Diastolic 70 mmHg Height 60.5 inches 5'0.50" Weight 151.00 lb BMI (Body Mass Index) 29.0 kg/m2 06/14/2015 11:05am Body Temperature 98.6 F Heart Rate 64 /min Respiratory Rate 18 /min BP Systolic 130 mmHg BP Diastolic 78 mmHg Height 60.5 inches 5'0.50" Weight 150.00 lb BMI (Body Mass Index) 28.8 kg/m2 O2 % BldC Oximetry 97 % 05/10/2015 11:24am Heart Rate 76 /min Respiratory Rate 18 /min BP Systolic 138 mmHg R/Reg BP Diastolic 84 mmHg R/Reg Height 60.5 inches 5'0.50" Weight 151.00 lb BMI (Body Mass Index) 29.0 kg/m2 02/12/2015 10:08am Body Temperature 98.9 F Heart Rate 78 /min Respiratory Rate 18 /min BP Systolic 118 mmHg BP Diastolic 72 mmHg Height 60.5 inches 5'0.50" Weight 144.12 lb BMI (Body Mass Index) 27.7 kg/m2 O2 % BldC Oximetry 98 % Ra 12/20/2014 3:20pm Heart Rate 74 /min Respiratory Rate 18 /min BP Systolic 118 mmHg BP Diastolic 68 mmHg Height 60.5 inches 5'0.50" Weight 146.31 lb BMI (Body Mass Index) 28.1 kg/m2 11/07/2014 11:07am Heart Rate 78 /min Respiratory Rate 18 /min BP Systolic 130 mmHg BP Diastolic 84 mmHg Height 60.5 inches 5'0.50" Weight 141.00 lb 10/23/2014 1:00pm Heart Rate 84 /min Respiratory Rate 17 /min BP Systolic 118 mmHg L/Reg BP Diastolic 74 mmHg L/Reg Height 60.5 inches 5'0.50" Weight 142.00 lb Down 7# 09/06/2014 1:56pm Heart Rate 80 /min Respiratory Rate 18 /min BP Systolic 134 mmHg BP Diastolic 88 mmHg Height 60.5 inches 5'0.50" Weight 149.00 lb O2 % BldC Oximetry 97 % 08/25/2014 1:55pm Body Temperature 98.2 F Heart Rate 94 /min Respiratory Rate 18 /min BP Systolic 128 mmHg BP Diastolic 80 mmHg Height 60.5 inches 5'0.50" Weight 147.00 lb O2 % BldC Oximetry 93 % Ra 06/06/2014 1:34pm Heart Rate 84 /min Respiratory Rate 18 /min BP Systolic 128 mmHg BP Diastolic 84 mmHg Weight 148.00 lb 02/08/2014 4:34pm Body Temperature 98.8 F Heart Rate 88 /min Respiratory Rate 18 /min BP Systolic 112 mmHg BP Diastolic 80 mmHg Height 60.5 inches 5'0.50" Weight 144.00 lb 12/06/2013 1:03pm Heart Rate 76 /min Respiratory Rate 19 /min BP Systolic 134 mmHg L/Reg BP Diastolic 80 mmHg L/Reg Height 60.5 inches 5'0.50" Weight 150.00 lb Up 3# 11/28/2013 9:52am Heart Rate 76 /min Respiratory Rate 18 /min BP Systolic 148 mmHg BP Diastolic 88 mmHg Weight 147.19 lb Results Test Date Facility Test Result H/L Range Note Laboratory test finding 02/01/2019 [facility] Urine Culture <pending> Basic (BMP) 01/19/2019 [facility] Sodium 145 mmol/L 135-146 1, 2 Potassium 3.8 mmol/L 3.5-5.2 Chloride# 106 mmol/L 97-110 3 Carbon Dioxide 30 mmol/L 24-34 Glucose 89 mg/dL 70-105 BUN 15 mg/dL 6-26 Creatinine 0.7 mg/dL 0.5-1.4 Calcium 8.8 mg/dL 8.5-10.2 Non Elizabeth Egfr >60 >60 4 Elizabeth Egfr >60 >60 5 Anion Gap 9 mmol/L 5-15 6 Lipid Treatment 01/19/2019 [facility] Cholesterol 204 mg/dL High 50-199 Triglycerides 231 mg/dL High 30-200 HDL 39 mg/dL 35-85 7 Chol/ HDL Ratio 5.3 ratio 3.7-5.6 VLDL 46 mg/dL High 2-29 LDL (Calc) 119 mg/dL High 20-99 8 Alt 12 U/L 3-42 Ast 16 U/L 8-42 Laboratory test finding 01/19/2019 [facility] Vitamin D 25 Hydroxy 32 ng/mL 30-100 9 TSH 1.31 uIU/mL 0.35-4.94 Magnesium 2.2 mg/dL 1.5-2.7 Vitamin B12 307 pg/mL 180-914 Basic (BMP) 06/30/2018 [facility] Sodium 144 mmol/L 135-146 10, 11 Potassium 4.1 mmol/L 3.5-5.2 Chloride# 106 mmol/L 97-110 12 Carbon Dioxide 28 mmol/L 24-34 Glucose 85 mg/dL 70-105 BUN 17 mg/dL 6-26 Creatinine 0.8 mg/dL 0.5-1.4 Calcium 9.0 mg/dL 8.5-10.2 Non Elizabeth Egfr >60 >60 13 Elizabeth Egfr >60 >60 14 Anion Gap 10 mmol/L 5-15 15 Lipid Treatment 06/30/2018 [facility] Cholesterol 181 mg/dL 50-199 Triglycerides 210 mg/dL High 30-200 HDL 43 mg/dL 35-85 16 Chol/ HDL Ratio 4.2 ratio 3.7-5.6 VLDL 42 mg/dL High 2-29 LDL (Calc) 96 mg/dL 20-99 17 Alt 12 U/L 3-42 Ast 16 U/L 8-42 CBC with Auto Diff-fcmg 06/30/2018 [facility] WBC 4.9 K/uL 4.1-11.0 18 RBC 4.44 M/uL 4.00-5.40 Hemoglobin 14.2 gm/dL [...] (BMP) 12/29/2017 [facility] Sodium 144 mmol/L 135-146 19, 20 Potassium 4.3 mmol/L 3.5-5.2 Chloride# 104 mmol/L 97-110 21 Carbon Dioxide 32 mmol/L 24-34 Glucose 87 mg/dL 70-105 BUN 17 mg/dL 6-26 Creatinine 0.8 mg/dL 0.5-1.4 Calcium 9.3 mg/dL 8.5-10.2 Non Elizabeth Egfr >60 >60 22 Elizabeth Egfr >60 >60 23 Anion Gap 8 mmol/L 5-15 24 Lipid Treatment 12/29/2017 [facility] Cholesterol 216 mg/dL High 50-199 Triglycerides 245 mg/dL High 30-200 HDL 45 mg/dL 35-85 25 Chol/ HDL Ratio 4.8 ratio 3.7-5.6 VLDL 49 mg/dL High 2-29 LDL (Calc) 122 mg/dL High 20-99 26 Alt 10 U/L 3-42 Ast 15 U/L 8-42 Laboratory test finding 12/29/2017 [facility] Vitamin D 25 Hydroxy 35 ng/mL 30-100 27 Magnesium 2.2 mg/dL 1.5-2.7 Vitamin B12 392 pg/mL 180-914 CBC With Auto Diff 12/29/2017 [facility] WBC 5.3 K/uL 4.1-11.0 RBC 4.42 M/uL [...] K/uL 0.0-0.3 CBC With Auto Diff 12/01/2017 [facility] WBC 5.5 K/uL 4.1-11.0 RBC 4.43 M/uL [...] Abs Basophils 0.0 K/uL 0.0-0.3 Comprehensive Met Panel-[facility]G 12/01/2017 [facility] Sodium 142 mmol/L 135- 146 28 Potassium 4.2 mmol/L 3.5-5.2 Chloride# 103 mmol/L 97-110 29 Carbon Dioxide 34 mmol/L 24-34 Glucose 75 mg/dL 70-105 BUN 16 mg/dL 6-26 Creatinine 0.8 mg/dL 0.5-1.4 Calcium 10.1 mg/dL 8.5-10.2 Total Protein 6.6 g/dL 6.0-8.0 Albumin 4.3 g/dL 3.6-4.9 Globulin 2.3 g/dL 2.0-3.5 A/G Ratio 1.9 Ratio 1.0-2.2 Total Bilirubin 0.4 mg/dL 0.1-1.3 Alkaline Phosphatase 98 U/L 24-140 Alt 12 U/L 3-42 Ast 17 U/L 8-42 Elizabeth Egfr >60 >60 30 Non Elizabeth Egfr >60 >60 31 Anion Gap 5 mmol/L Low 7-16 32 Laboratory test finding 12/01/2017 [facility] Amylase 33 U/L 29-103 Lipase 6 U/L Low 11-82 Laboratory test 09/29/2017 [facility] Urine Culture Microbiology res 33 finding <SEE NOTE> Laboratory test 09/14/2017 [facility] [...] 08/11/2017 [facility] Enteric Pathogens By SEE NOTE 34 PCR Giard/Cryptosp Exam SEE NOTE 35 Lactoferrin,Fecal NEGATIVE (Neg) 36 C Diff Toxin B/PCR-RL 08/11/2017 [facility] Specimen Description STOOL C Diff Toxin B NEGATIVE (Neg) 027 Nap1 B1 NEGATIVE (Neg) Comment NOTE: IF REFLEX <SEE NOTE> 37 Laboratory test finding 01/05/2017 [facility] H. Pylori Stool Ag SEE NOTE 38 Laboratory test finding 12/24/2016 [facility] Vit D,25 Hydroxy 40 ng/mL 31- 100 39 Lipid Treatment 12/24/2016 [facility] Cholesterol 163 mg/dL 50-199 Triglycerides 135 mg/dL 30-200 HDL 42 mg/dL 35-85 40 Chol/ HDL Ratio 3.9 ratio 3.7-5.6 VLDL 27 mg/dL 2-29 LDL (Calc) 94 mg/dL 20-99 41 Alt 11 U/L 3-42 Ast 14 U/L 8-42 Basic (BMP) 12/24/2016 [facility] Sodium 141 mmol/L 134-142 Potassium 4.2 mmol/L 3.5-5.2 Chloride 105 mmol/L 97-109 Carbon Dioxide 31 mmol/L 24-34 Glucose 96 mg/dL 70-105 BUN 18 mg/dL 6-26 Creatinine 0.8 mg/dL 0.5-1.4 Calcium 9.0 mg/dL 8.5-10.2 Anion Gap 9 mmol/L 6-14 Non Elizabeth Egfr >60 >60 42 Elizabeth Egfr >60 >60 43 Laboratory test finding 06/16/2016 [facility] Magnesium 1.9 mg/dL 1.5-2.7 44 Vitamin B12 411 pg/mL 180-914 Vit D,25 Hydroxy 36 ng/mL 31-100 Lipid 06/16/2016 [facility] Cholesterol 168 mg/dL 50-199 Triglycerides 134 mg/dL 30-200 HDL 46 mg/dL 35-85 45 Chol/ HDL Ratio 3.7 ratio 3.7-5.6 VLDL 27 mg/dL 2-29 LDL (Calc) 95 mg/dL 20-99 46 Hepatic Panel (LFT) 06/16/2016 [facility] Total Protein [...] mmol/L 6-14 Non Elizabeth Egfr >60 >60 47 Elizabeth Egfr >60 >60 48 Lipid 12/12/2015 [facility] Cholesterol 155 mg/dL 50-199 49 Triglycerides 112 mg/dL 30-200 HDL 42 mg/dL 35-85 50 Chol/ HDL Ratio 3.7 ratio 3.7-5.6 VLDL 22 mg/dL 2-29 LDL (Calc) 91 mg/dL 20-99 51 Urinalysis With 11/28/2015 [facility] Urine Color YELLOW Yellow Microscopic (315)- - Urine Clarity CLEAR Clear Urine Glucose - Dipstick NEGATIVE mg/dL Negative Urine Bilirubin - Dipstick NEGATIVE Negative Urine Ketone 15 mg/dL High Negative Urine Specific [place] 1.010 1.010-1.030 Urine Blood NEGATIVE Negative Urine PH 6.5 6.5-7.5 Urine Protein - Dipstick NEGATIVE mg/dL Negative Urine Urobilinogen - Dipstick 0.2 E.U./dL 0.2-1.0 Urine Nitrite - Dipstick NEGATIVE Negative Urine Leuk Esterase LARGE High Negative Urine RBC 2-5 rbc/hpf 0-2 Urine WBC 10-20 wbc/hpf High 0-7 Urine Epithelial Cells MODERATE NONESEEN/lpf 52 Urine Bacteria FEW NONESEEN Urine Mucus SMALL NONESEEN Urine Screen 11/28/2015 [facility] Ua RFX Micro See Note 53 (315)- - + Culture II Urine Culture 11/28/2015 [facility] Urine Culture See Note 54 (315)- - Comprehensive 11/28/2015 [facility] Glucose 107 mg/dL High 74-106 Metabolic Panel (315)- - BUN 16 mg/dL 7-18 Creatinine 0.9 mg/dL 0.6-1.3 Glom Filtration Rate, Estimate >60 mL/min >60 If >60 mL/min >60 55 BUN/Creat 17.7 ratio Sodium 142 mmol/L 136-145 [...] Alkaline Phosphatase 85 U/L 45-117 CBC 11/28/2015 [facility] White Blood Count 6.2 K/uL 3.1-10.7 (315)- [...] (BMP) 11/26/2015 [facility] Sodium 135 mmol/L 134-142 56 Potassium 4.8 mmol/L 3.5-5.2 Chloride 99 mmol/L 97-109 Carbon Dioxide 30 mmol/L 24-34 Glucose 108 mg/dL High 70-105 BUN 16 mg/dL 6-26 Creatinine 0.9 mg/dL 0.5-1.4 Calcium 9.6 mg/dL 8.5-10.2 Anion Gap 11 mmol/L 6-14 Non Elizabeth Egfr >60 >60 57 Elizabeth Egfr >60 >60 58 CBC With Auto Diff 11/26/2015 [facility] WBC [...] 10/11/2015 [facility] Urine Culture Microbiology res Abnormal 59 finding <SEE NOTE> Lipid Treatment 06/13/2015 [facility] Cholesterol 197 mg/dL 50-199 60 Triglycerides 145 mg/dL 30-200 HDL 48 mg/dL 35-85 61 Chol/ HDL Ratio 4.1 ratio 3.7-5.6 VLDL 29 mg/dL 2-29 LDL (Calc) 120 mg/dL High 20-99 62 Alt 16 U/L 3-42 Ast 18 U/L 8-42 Basic (BMP) 06/13/2015 [facility] Sodium 141 mmol/L 134-142 Potassium 4.4 mmol/L 3.5-5.2 Chloride 103 mmol/L 97-109 Carbon Dioxide 32 mmol/L 24-34 Glucose 86 mg/dL 70-105 BUN 22 mg/dL 6-26 Creatinine 0.8 mg/dL 0.5-1.4 Calcium 9.3 mg/dL 8.5-10.2 Anion Gap 10 mmol/L 6-14 Non Elizabeth Egfr >60 >60 63 Elizabeth Egfr >60 >60 64 Laboratory test 06/13/2015 [facility] Magnesium 2.1 mg/dL 1.5-2.7 finding Laboratory test 12/01/2014 [facility] Sgot/Ast 15 U/L 15-37 65 finding (315)- - SGPT/Alt 18 U/L 12-78 Vitamin D,25-Hydroxy 44.7 ng/mL 30.0-100.0 66 LDL Cholesterol 12/01/2014 [facility] Cholesterol 187 mg/ dL < 200 67 Profile (315)- - Triglycerides 125 mg/dL < 150 68 HDL Cholesterol 42 mg/dL > 40 69 LDL-Cholesterol 120 mg/dL < 100 70 Basic Metabolic Panel 12/01/2014 [facility] Glucose 86 mg /dL 74-106 (315)- - BUN 18 mg/dL 7-18 Creatinine 0.8 mg/dL 0.6-1.3 Glom Filtration Rate, Estimate >60 mL/min >60 If >60 mL/min >60 71 BUN/Creat 22.5 ratio Sodium 142 mmol/L 136-145 Potassium 4.4 mmol/L 3.5-5.1 Chloride 107 mmol/L 98-107 Carbon Dioxide 30 mmol/L 21-32 Anion Gap 9 mEq/L 8-16 Calcium 9.3 mg/dL 8.5-10.1 Laboratory test finding 09/06/2014 N2N/[facility] Import Culture Urine See Note 72 Lipid Panel 05/30/2014 N2N/[facility]D Import Chol/HDL Ratio [...] % Lymph 45 % High 20-44 % [place] 6.8 % 2.0-10.0 % Danielle 44 % Low 50-70 Absolute Baso. 0.1 K/ul 0.0-0.3 Absolute Eos. 0.1 K/ul 0.0-0.5 Absolute Lymph. 2.1 K/ul 0.8-4.8 Absolute [place]. 0.3 K/ul 0.1-1.0 Absolute Danielle. 2.01 K/ul [...] 7.3 fL 6.0-10.0 Magnesium 2.1 mg/dL 1.7-2.3 73 PLT 211 K/ul 140-440 Potasium 4.1 mmol/L 3.6-5.0 RBC 4.5 M/ul 4.2-6.3 RDW 11.2 % Low 11.5-14.5 Sodium 143.0 mmil/L 137.0-145.0 Vitamin D 54.1 ng/mL 30.0-100.0 WBC 4.5 K/ul 4.1-10.9 eGFR 75.4 1 01/25 PRE-OV 2 Updated reference range on new analyzer [...] 130-159 High: 160-189 Very high: >189 9 Clinical Guidelines for recommended serum 25(OH)Vitamin D Deficient at less than 20 ng/mL Insufficient at 20 to <30 ng/mL Sufficient at 30-100 ng/mL Toxicity at greater than 100 ng/mL 10 06/26 preOV 11 Updated reference range on new analyzer [...] 130-159 High: 160-189 Very high: >189 18 outside order in pink folder 19 12/27 PRE-OV 20 Updated reference range on new analyzer 21 Updated reference range on new analyzer 22 Concerning GFR Guidelines: Normal function or [...] that are excreted by the kidneys. 23 Concerning GFR Guidelines for Americans: Normal function or mild renal disease, if clinically at risk: >/=60 mL/min Moderately decreased: 30-59 Severely decreased: 15-29 Renal failure: <15 24 Updated Reference Range 25 Per NCEP ATP III Guidelines: Results lower than 40 mg/dL are suggestive of increased risk for coronary artery disease. Results > or=to 60 mg/dL are considered a negative risk factor. 26 Per NCEP ATP III Guidelines: Normal Population <130 Patients with medical conditions: CHD/DM Optimal: <100 Borderline high: 130-159 High: 160-189 Very high: >189 27 Clinical Guidelines for recommended serum 25(OH)Vitamin D Deficient at less than 20 ng/mL Insufficient at 20 to <30 ng/mL Sufficient at 30-100 ng/mL Toxicity at greater than 100 ng/mL 28 Updated reference range on new analyzer 29 Updated reference range on new analyzer 30 Concerning GFR Guidelines for Americans: Normal function or mild renal disease, if clinically at risk: >/=60 mL/min Moderately decreased: 30-59 Severely decreased: 15-29 Renal failure: <15 31 Concerning GFR Guidelines: Normal function or mild [...] drugs that are excreted by the kidneys. 32 Updated reference range on new analyzer 33 Microbiology results SOURCE Clean Catch Midstream FINAL RESULT No growth 34 SPECIMEN DESCRIPTION STOOL SPECIAL REQUESTS NONE RESULT [...] 08/12/2017 Unless otherwise specified, testing performed by [facility] [address] [place] [address] 35 SPECIMEN DESCRIPTION STOOL SPECIAL REQUESTS NONE RESULT [...] 08/13/2017 Unless otherwise specified, testing performed by [facility] [address] [place] [id number] 36 PERFORMED AT [address] [place] [address] Unless otherwise specified, testing performed by [facility] [address] [place] [id number] 37 NOTE: IF REFLEX CULTURE FOR KLEBSIELLA OXYTOCA IS CLINICALLY INDICATED, PLEASE CONTACT THE [facility]OLOGY [facility]ORY ([phone]) WITHIN 3 DAYS OF THIS REPORT. Unless otherwise specified, testing performed by [facility] [address] [place] [id number] 38 SPECIMEN DESCRIPTION STOOL RESULT NEGATIVE FOR H. PYLORI ANTIGEN BY EIA REPORT STATUS FINAL 01/06/2017 Unless otherwise specified, testing performed by [facility] [address] [place] [id number] 39 12/26 preOV 40 Per NCEP ATP III Guidelines: Results lower than 40 mg/dL are suggestive of increased risk for coronary artery disease. Results > or=to 60 mg/dL are considered a negative risk factor. 41 Per NCEP ATP III Guidelines: Normal Population <130 Patients with medical conditions: CHD/DM Optimal: <100 Borderline high: 130-159 High: 160-189 Very high: >189 42 Concerning GFR Guidelines: Normal function or mild [...] drugs that are excreted by the kidneys. 43 Concerning GFR Guidelines for Americans: Normal function or mild renal disease, if clinically at risk: >/=60 mL/min Moderately decreased: 30-59 Severely decreased: 15-29 Renal failure: <15 44 8/ preOV 45 Per NCEP ATP III Guidelines: Results lower than 40 mg/dL are suggestive of increased risk for coronary artery disease. Results > or=to 60 mg/dL are considered a negative risk factor. 46 Per NCEP ATP III Guidelines: Normal Population <130 Patients with medical conditions: CHD/DM Optimal: <100 Borderline high: 130-159 High: 160-189 Very high: >189 47 Concerning GFR Guidelines: Normal function or mild [...] drugs that are excreted by the kidneys. 48 Concerning GFR Guidelines for Americans: Normal function or mild renal disease, if clinically at risk: >/=60 mL/min Moderately decreased: 30-59 Severely decreased: 15-29 Renal failure: <15 49 2/16 preOV 50 Per NCEP ATP III Guidelines: Results lower than 40 mg/dL are suggestive of increased risk for coronary artery disease. Results > or=to 60 mg/dL are considered a negative risk factor. 51 Per NCEP ATP III Guidelines: Normal Population <130 Patients with medical conditions: CHD/DM Optimal: <100 Borderline high: 130-159 High: 160-189 Very high: >189 52 POSSIBLE UROGENITAL CONTAMINATION. 53 11/28/15 LAB.EMM1 Deleted by [facility] [place] Organism 1 ! URETHRAL RAMA Quantity ! > 100,000 CFU/mL 55 Note: Persistent reduction for 3 months or more in an eGFR <60 mL/min/1.73 m2 defines CKD. Patients with eGFR values >/=60 mL/min/1.73 m2 may also have CKD if evidence of persistent proteinuria is present. The original MDRD equation for estimated GFR is not valid for patients less than 18 years of age. Additional information may be found at www.kdoqi.org. 56 Fastin hours 57 Concerning GFR Guidelines: Normal function or mild [...] drugs that are excreted by the kidneys. 58 Concerning GFR Guidelines for Americans: Normal function or mild renal disease, if clinically at risk: >/=60 mL/min Moderately decreased: 30-59 Severely decreased: 15-29 Renal failure: <15 59 Microbiology results SOURCE URINE COLONY COUNT 40,000 [...] TOBRAMYCIN <=4 S TRIMETHOPRIM/SULFAMETHOXAZ <=2/38 S S=Sensitive;I=Indeterminate;R=Resistant 60 8/15 preOV 61 Per NCEP ATP III Guidelines: Results lower than 40 mg/dL are suggestive of increased risk for coronary artery disease. Results > or=to 60 mg/dL are considered a negative risk factor. 62 Per NCEP ATP III Guidelines: Normal Population <130 Patients with medical conditions: CHD/DM Optimal: <100 Borderline high: 130-159 High: 160-189 Very high: >189 63 Concerning GFR Guidelines: Normal function or mild [...] drugs that are excreted by the kidneys. 64 Concerning GFR Guidelines for Americans: Normal function or mild renal disease, if clinically at risk: >/=60 mL/min Moderately decreased: 30-59 Severely decreased: 15-29 Renal failure: <15 65 has 12/18 Vitamin D deficiency has been defined by the [employer] of Medicine and an Endocrine Society practice guideline as a level of serum 25-OH vitamin D less than 20 ng/mL (1,2). The Endocrine Society went on to further define vitamin D insufficiency as a level between 21 and 29 ng/mL (2). 1. IOM ([employer]vin of Medicine). 2010. Dietary reference intakes for calcium and D. [place]: The National Academies Press. 2. Von MF, Jennifer NC, Opal CURRAN, et al. Evaluation, treatment, and prevention of vitamin D deficiency: an Endocrine Society clinical practice guideline. JCEM. 2010; 96(7):1911-30. Performed at: RN - [facility] [address] [id number] Hand Thermal Cutter: Sonya Alberto MD, Phone: [phone] Reference Guidelines*: Desirable: ........... < 200 mg/dL Borderline High: ..... 200-239 mg/dL High: ................ >=240 mg/dL * The National Cholesterol Education Program (NCEP) 68 Reference Guidelines*: Normal: ............. < 150 mg/dL Borderline High: .... 150-199 mg/dL High: ............... 200-499 mg/dL Very High: .......... > 500 mg/dL * Source: National Cholesterol Education Program (NCEP) 69 Reference Guidelines*: Low HDL: ..... < 40 mg/dL Normal: ..... 40-60 mg/dL Desirable: ... > 60 mg/dL *The National Cholesterol Education Program(NCEP) 70 Reference Guidelines*: Optimal:........... <100 mg/dL Near Optimal....... 100-129 mg/dL Borderline High.... 130-159 mg/dL High............... 160-189 mg/dL Very High.......... >=190 mg/dL * Source: National Cholesterol Education Program (NCEP) 71 Note: Persistent reduction for 3 months or more in an eGFR <60 mL/min/1.73 m2 defines CKD. Patients with eGFR values >/=60 mL/min/1.73 m2 may also have CKD if evidence of persistent proteinuria is present. The original MDRD equation for estimated GFR is not valid for patients less than 18 years of age. Additional information may be found at www.kdoqi.org. 72 COLONY COUNT ! 10,000 - 20,000 CFU/ml Organism 1 ! MIXED URETHRAL RAMA 73 FASTING 11/22 preOV Procedures Date Code Description Status 12/02/2018 52630 Remove Impact Cerumen Irrigation/Lavage Completed 04/20/2018 [id number] Mammogram Completed 03/15/2018 [id number] Mammogram Completed 12/18/2017 91110 Measure Blood Oxygen Level Single Determination Completed 11/19/2017 [id number] Colonoscopy Completed 10/21/2017 61941 Remove Impact Cerumen Irrigation/Lavage Completed 07/01/2017 11422 Electrocardiogram Complete Completed 04/13/2017 [id number] Bone Mineral Density Test Completed 04/13/2017 69080 Bone Density Study (Dexa) Axial Skeleton Completed (Hips,Pelvis,Spine) 11/26/2015 71541 Measure Blood Oxygen Level Single Determination Completed 08/07/2015 69466 X-Ray Spine Cervical, 4 Or 5 Views Completed 06/20/2015 73576 Remove Skin Tags Up To 15 Completed 06/14/2015 96684 Measure Blood Oxygen Level Single Determination Completed 06/14/2015 02534 Measure Blood Oxygen Level Single Determination Completed 03/12/2015 81963 Bone Density Study (Dexa) Axial Skeleton Completed (Hips,Pelvis,Spine) 03/12/2015 91374 Old Bone Density Study (Dexa) Completed 03/12/2015 719133915 Bone Mineral Density Test Completed 03/12/2015 [id number] Mammogram Completed 02/12/2015 33625 Measure Blood Oxygen Level Single Determination Completed Encounters Type Date Location Provider Dx Diagnosis Office Visit 01/26/2019 [facility] Edwin Morrow, Z00.00 Encntr for general 1:30p adult medical exam w/o abnormal findings R03.0 Elevated blood-pressure reading, w/o diagnosis of htn E78.00 Pure hypercholesterolemia, unspecified M85.80 Oth disrd of bone density and structure, unspecified site K21.9 Gastro-esophageal reflux disease without esophagitis G60.9 Hereditary and idiopathic neuropathy, unspecified M15.9 Polyosteoarthritis, unspecified M51.36 Other intervertebral disc degeneration, lumbar region M17.11 Unilateral primary osteoarthritis, RIGHT knee Z12.31 Encntr screen mammogram for malignant neoplasm of breast Z13.31 Encounter for screening for depression Z68.28 Body mass index (BMI) 28.0-28.9, adult Office Visit 12/28/2018 11:15a Edwin Starks MD M54.5 Low back pain M70.62 Trochanteric bursitis, LEFT hip Office Visit 08/24/2018 2:30p [facility] Greer Morrow, 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, PARTS ADMINISTRATOR unspecified Office Visit 07/16/2018 1:30p [facility] Edwin Morrow, K21.9 Gastro- esophageal MD reflux disease without esophagitis R60.9 Edema, unspecified R03.0 Elevated blood-pressure reading, w/o diagnosis of htn M85.80 Oth disrd of bone density and structure, unspecified site E78.00 Pure hypercholesterolemia, unspecified M15.9 Polyosteoarthritis, 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, 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, recurrent, mild R53.83 Other fatigue Z79.899 Other chcf (current) drug therapy Z96.652 Presence of LEFT artificial knee joint M17.11 Unilateral primary osteoarthritis, RIGHT knee Z68.29 Body mass index (BMI) 29.0-29.9, adult Office Visit 04/20/2018 11:15a [facility] Edwin Morrow MD L03.211 Cellulitis of face Office Visit 03/12/2018 4:00p [facility] Adeline Lawton PA N64.4 Mastodynia Z68.29 Body mass index (BMI) 29.0-29.9, adult Office Visit 03/04/2018 9:45a [facility] Edwin Morrow, M25.579 Pain in unspecified MD ankle and joints of unspecified foot K21.9 Gastro-esophageal reflux disease without esophagitis Z68.29 Body mass index (BMI) 29.0-29.9, adult Office Visit 01/05/2018 1:30p [facility] Edwin Morrow, R03.0 Elevated blood-pressure MD reading, w/o diagnosis of htn E78.00 Pure hypercholesterolemia, unspecified M85.80 Oth disrd of bone density and structure, unspecified site M15.9 Polyosteoarthritis, unspecified K21.9 Gastro-esophageal reflux disease without esophagitis G60.9 Hereditary and idiopathic neuropathy, 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, recurrent, mild M51.36 Other intervertebral disc degeneration, lumbar region Office Visit 12/18/2017 2:00p [facility] Hannah Wilde MD J06.9 Acute upper respiratory infection, unspecified Office Visit 12/01/2017 10:45a [facility] Edwin Morrow, R10.13 Epigastric pain MD Office Visit 10/21/2017 10:45a [facility] Edwin Morrow, Z00.00 Encntr for general MD adult medical exam w/o abnormal findings H61.23 Impacted cerumen, bilateral A09 Infectious gastroenteritis and colitis, unspecified Z68.28 Body mass index (BMI) 28.0-28.9, adult Office Visit 09/29/2017 1:45p [facility] Greer Morrow NP R30.0 Dysuria Office Visit 08/13/2017 2:30p [facility] Adeline Lawton PA M54.5 Low back pain M79.671 Pain in RIGHT foot M79.672 Pain in LEFT foot Office Visit 08/10/2017 4:15p [facility] Adeline Lawton PA R19.7 Diarrhea, unspecified Office Visit 07/01/2017 1:00p [facility] Odalys M51.36 Other intervertebral MD Edwin disc degeneration, lumbar region Z01.810 Encounter for preprocedural cardiovascular examination R03.0 Elevated blood-pressure reading, w/o diagnosis of htn E78.00 Pure hypercholesterolemia, unspecified K21.9 Gastro-esophageal reflux disease without esophagitis G60.9 Hereditary and idiopathic neuropathy, unspecified M15.9 Polyosteoarthritis, unspecified R60.9 Edema, unspecified M85.80 Oth disrd of bone density and structure, unspecified site Office Visit 05/14/2017 9:45a [facility] Edwin Morrow, M85.89 Oth disrd of bone MD density and structure, multiple sites Office Visit 02/26/2017 2:30p [facility] Reji Lockhart DO M51.36 Other intervertebral disc degeneration, lumbar region M48.06 Spinal stenosis, lumbar region Office Visit 12/31/2016 1:00p [facility] Edwin Morrow MD R10.13 Epigastric pain R03.0 Elevated blood-pressure reading, w/o diagnosis of htn E78.00 Pure hypercholesterolemia, unspecified M85.80 Oth disrd of bone density and structure, unspecified site M15.9 Polyosteoarthritis, unspecified M51.36 Other intervertebral disc degeneration, lumbar region F33.0 Major depressive disorder, recurrent, mild Office Visit 12/10/2016 4:30p [facility] Edwin Morrow, R10.13 Epigastric pain MD Office Visit 10/09/2016 8:30a [facility] Zehra Linares PA H61.21 Impacted cerumen, RIGHT ear H68.001 Unspecified Eustachian salpingitis, RIGHT ear Office Visit 08/27/2016 11:00a [facility] Edwin Morrow MD Z00.00 Encntr for general adult medical exam w/o abnormal findings Z68.28 Body mass index (BMI) 28.0-28.9, adult F33.0 Major depressive disorder, recurrent, mild M51.36 Other intervertebral disc degeneration, lumbar region R03.0 Elevated blood-pressure reading, w/o diagnosis of htn M85.80 Oth disrd of bone density and structure, unspecified site Office Visit 06/30/2016 1:00p [facility] Edwin Morrow, Carrie9 Infectious MD gastroenteritis and colitis, unspecified R03.0 Elevated blood-pressure reading, w/o diagnosis of htn K21.9 Gastro-esophageal reflux disease without esophagitis E78.0 Pure hypercholesterolemia M85.80 Oth disrd of bone density and structure, unspecified site M51.36 Other intervertebral disc degeneration, lumbar region F33.0 Major depressive disorder, recurrent, mild M15.9 Polyosteoarthritis, unspecified Office Visit 06/23/2016 11:15a [facility] Edwin Morrow, A09 Infectious MD gastroenteritis and colitis, unspecified Office Visit 06/04/2016 11:15a [facility] Edwin Morrow, R21 Rash and other MD nonspecific skin [...] disorder, recurrent, mild Office Visit 12/24/2015 1:00p [facility] Edwin Morrow, M51.36 Other intervertebral MD disc degeneration, lumbar region R03.0 Elevated blood-pressure reading, w/o diagnosis of htn K21.9 Gastro-esophageal reflux disease without esophagitis M15.9 Polyosteoarthritis, unspecified R60.9 Edema, 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, unspecified M85.80 Oth disrd of bone density and structure, unspecified site F33.0 Major depressive disorder, recurrent, mild Z79.899 Other chcf (current) drug therapy E78.0 Pure hypercholesterolemia Office Visit 11/30/2015 3:30p [facility] Edwin Morrow MD R53.1 Weakness R11.0 Nausea M51.36 Other intervertebral disc degeneration, lumbar region Office Visit 11/28/2015 8:15a [facility] Edwin Morrow MD R53.1 Weakness R11.0 Nausea Office Visit 11/26/2015 9:30a [facility] Odalys Greer, PARTS ADMINISTRATOR R53.1 Weakness R53.83 Other fatigue Office Visit 10/11/2015 1:00p [facility] Zehra Linares PA R30.0 Dysuria M54.5 Low back pain Office Visit 09/07/2015 2:15p [facility] Edwin Morrow MD M54.2 Cervicalgia M47.22 Other spondylosis with radiculopathy, cervical region Office Visit 08/07/2015 3:30p [facility] Edwin Morrow MD M54.2 Cervicalgia R20.2 Paresthesia of skin Office Visit 07/26/2015 11:30a [facility] Zehra Linares, 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 Office Visit 06/20/2015 1:00p [facility] Odalys, 272.0 Hypercholesterolemia Pure MD Edwin 530.81 Esophageal Reflux 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 V43.65 Knee Replacement By Other Means V03.82 Streptococcus Pneumoniae Vaccination Spec Other 701.9 Hypertrophic & Atrophic Conditions Of Skin Unspec 733.90 Bone & Cartilage Disorder Unspec 782.3 Edema V76.10 Screening For Malignant Neoplasm Breast Office Visit 05/10/2015 11:15a [facility] Edwin Morrow, 380.4 Impacted Maureen CAMPOVERDE Office Visit 02/12/2015 10:00a [facility] Hannah Wilde MD 466.0 Bronchitis Acute Office Visit 12/20/2014 3:00p [facility] Edwin Morrow, V43.65 Knee Replacement By MD Other Means 300.00 Anxiety State Unspec 530.81 Esophageal Reflux 272.0 Hypercholesterolemia Pure 796.2 Blood Pressure Reading Elevated W/O Hypertension 715.00 Osteoarthrosis Generalized Site Unspec V58.69 Medications Correction (Current) Use Encounter Plan of Treatment Future Appointment(s):03/04/2019 10:45 am - Edwin Morrow MD at [facility]2018 8:20 am - Schedule, Laboratory at [facility]07/26/2019 1:00 pm - Edwin Morrow MD at [facility]02/01/2019 - Edwin Morrow MDN39.0 Urinary tract infection, site not specifiedNew Medication:Cephalexin 500 mg - 1 by mouth three times a day for 5 daysFollow up:Follow up as hbprruisbH52.28 Body mass index (BMI) 28.0-28.9, adult
[2019-02-13 15:13] VITALS: BP 136/69
--- NOTE | 2019-02-13 15:51 | UC ---
Complaint Female HPI - HPI Summary HPI Summary: Pain with urination today. was treated 2 weeks ago for uti, symptoms never really resolved - History Of Current Complaint Chief Complaint: UCGU Stated Complaint: URINARY COMPLAINT Time Seen by Provider: 02/13/19 15:11 Hx Obtained From: Patient Hx Last Menstrual Period: n/a ?: No Onset/Duration: Sudden Onset, Lasting Hours Timing: Constant Severity Initially: Mild Severity Currently: Mild Pain Intensity: 0 Aggravating Factor(s): Urination, Nothing Associated Signs And Symptoms: Positive: Negative - Allergies/Home Medications Allergies/Adverse Reactions: Allergies Allergy/AdvReac Type Severity Reaction Status Date / Time amoxicillin Allergy Rash Verified 02/13/19 15:14 doxycycline Allergy GI Upset Verified 02/13/19 15:14 Iodinated Contrast- Oral and Allergy Itching Verified 02/13/19 15:14 IV Dye oxycodone Allergy Itching Verified 02/13/19 15:14 sulfamethoxazole Allergy Pain Verified 02/13/19 15:14 [From Bactrim] trimethoprim [From Bactrim] Allergy Pain Verified 02/13/19 15:14 Flu vaccine Allergy See Comment Uncoded 02/13/19 15:14 Hydrocodone 7.5/ Ibuprofen Allergy Unknown Uncoded 02/13/19 15:14 200 Reaction Details oxycodone Allergy Itching Uncoded 02/13/19 15:14 Home Medications: Home Medications Calcium Carbonate [Calcium] 1,200 mg PO DAILY 02/13/19 [History Confirmed ] Clindaycin 2 tab PO SEE INSTRUCTIONS 02/13/19 [History Confirmed 02/13/19] Multivitamin [Multiple Vitamins] 1 tab PO DAILY 02/13/19 [History Confirmed 05/27] Ewen-3 Fatty Acids/Fish Oil [Ewen 3 1,000 mg Softgel] 1 each PO DAILY [History Confirmed 02/13/19] Vitamin E 200 unit PO DAILY 02/13/19 [History Confirmed 02/13/19] PMH/Surg Hx/FS Hx/Imm Hx Previously Healthy: Yes - Surgical History Surgical History: Yes Surgery Procedure, Year, and Place: 07/16/2017 L4 L5 plate screw and shay done at [facility] metal is present; Appendectomy, 1957. Tubal Ligation, 1976. L5 S1 Partial Discectomy, 1978. Breast Reduction, 2001. Left and Right Shoulder Surgeries "from repetitive", 2002 and 2004. Right Carpal Tunnel Release and Tendon Repair, 2006. Total left Knee replacement. Bunion and Toes Surgeries - Family History Known Family History: Positive: None Negative: Cardiac Disease, Hypertension - Social History Alcohol Use: Rare Substance Use Type: None Smoking Status (MU): Never Smoked Tobacco - Immunization History Most Recent Influenza Vaccination: "Allergic" Review of Systems All Other Systems Reviewed And Are Negative: Yes Constitutional: Positive: Negative Skin: Positive: Negative Eyes: Positive: Negative ENT: Positive: Negative Respiratory: Positive: Negative Cardiovascular: Positive: Negative Gastrointestinal: Positive: Negative Genitourinary: Positive: Dysuria, Frequency, Urgency Motor: Positive: Negative Neurovascular: Positive: Negative Musculoskeletal: Positive: Negative Neurological: Positive: Negative Psychological: Positive: Negative Is Patient Immunocompromised?: No Physical Exam Triage Information Reviewed: Yes Appearance: Well-Appearing, Well-Nourished, Pain Distress Vital Signs: Initial Vital Signs Temp 98.9 F 02/13/19 15:04 Pulse 94 02/13/19 15:04 Resp 22 02/13/19 15:04 BP 136/69 02/13/19 15:04 Pulse Ox 96 02/13/19 15:04 Vital Signs Reviewed: Yes Eye Exam: Normal ENT Exam: Normal Dental Exam: Normal Neck exam: Normal Respiratory Exam: Normal Cardiovascular Exam: Normal Abdomen Description: Positive: Nontender, No Organomegaly, Soft, CVA Tenderness (R) - neg, CVA Tenderness (L) - neg Musculoskeletal Exam: Normal Neurological Exam: Normal Psychological Exam: Normal Skin Exam: Normal Complaint Female Dx - Course Course Of Treatment: hx obtained, exam performed ,meds reviewed, UA pos treated for UTI, was treated two weeks ago for UTI with keflex, symtpoms never really went away. - Differential Dx/Diagnosis Differential Diagnosis/HQI/PQRI: Urinary Tract Infection Provider Diagnosis: UTI (urinary tract infection) Discharge - Sign-Out/Discharge Documenting (check all that apply): Patient Departure All imaging exams completed and their final reports reviewed: No Studies - Discharge Plan Condition: Stable Disposition: HOME Prescriptions: Ciprofloxacin TAB* [Cipro 500 MG TAB*] 500 mg PO BID #10 tab Patient Education Materials: Urinary Tract Infection in Women (DC) Referrals: Edwin Morrow MD [Primary Care Provider] - Additional Instructions: 1. take the medication as prescribed. 2. You can start high dose cranberry pills, ( natures bounty 25,500 mg) 1 hourly for 12 hours. 3. Increase fluids, and follow up as necessary - Billing Disposition and Condition Condition: STABLE Disposition: Home
== END 2019-02-13 15:57 | disposition home or self-care (01) ==
LOC: UCCORT 14:49
DX: N39.0 Urinary tract infection, site not specified (principal); Z88.5 Allergy status to narcotic agent; Z88.7 Allergy status to serum and vaccine; Z88.2 Allergy status to sulfonamides; Z91.041 Radiographic dye allergy status; Z88.0 Allergy status to penicillin; Z88.1 Allergy status to other antibiotic agents; Z88.8 Allergy status to other drugs, medicaments and biological substances
CPT/HCPCS: 81003; 87077; 87086; 87186; 99212; G0463

== ENCOUNTER 2019-03-22 09:00 | Inpatient (IN) | payer MEDICARE ==
--- NOTE | 2019-03-09 16:51 | HP ---
HISTORY AND PHYSICAL: DATE OF ADMISSION/SURGERY: 03/22/19 DATE OF OFFICE VISIT: 03/09/19 SURGEON: Carla Mesa MD * (DICTATED BY HUGH PRATER) PROCEDURE: Right total knee arthroplasty. CHIEF COMPLAINT: Right knee pain. HISTORY OF PRESENT ILLNESS: Ms. Card is a 78-year-old female with end- stage osteoarthritis of the right knee. She has failed conservative treatment and elected to proceed with a right total knee arthroplasty. PAST MEDICAL HISTORY: Denies. PAST SURGICAL HISTORY: Appendectomy, tubal ligation, lumbar diskectomy, lumbar fusion, bunionectomy x2, breast reduction, bilateral shoulder arthroscopies, right thumb surgery, and a left total knee arthroplasty. CURRENT MEDICATIONS: 1. Alendronate sodium 70 mg weekly. 2. Calcium with vitamin D. 3. Tylenol as needed. 4. Multivitamin. 5. Vitamin C. 6. Cranberry. ALLERGIES: To AMOXICILLIN, DOXYCYCLINE, SULFA DRUGS, OXYCONTIN causes itching, CT DYE, NITROFURANTOIN. FAMILY HISTORY: Stroke, DVT, and coronary artery disease. SOCIAL HISTORY: She is a 78-year-old female. She lives alone. She does not smoke, use drugs, or alcohol. REVIEW OF SYSTEMS: A complete 14-point review of systems was reviewed with the patient; it was all negative or noncontributory. She denies history of DVT, PE , hepatitis, HIV, or anesthesia problems. PHYSICAL EXAMINATION GENERAL: She is well developed, well nourished, in no acute distress. VITAL SIGNS: She stands 60 inches tall, weighs 142 pounds. Her blood pressure is 126/80, her heart rate is 84. HEENT: Normocephalic, atraumatic. NECK: Supple. No palpable lymph nodes. PULMONARY: The lungs are clear to auscultation bilaterally. CARDIO: Regular rate and rhythm. Strong S1, S2. ABDOMEN: Soft, nontender, nondistended. NEUROLOGICAL: She is alert and oriented x3. MUSCULOSKELETAL: Right lower extremity: The skin is intact. There are no open wounds or abrasions. There is a moderate effusion of the right knee joint. She has some tenderness over the medial and lateral joint line. There is a 15-degree valgus deformity of the knee. Range of motion, she has 125 degrees of flexion and there is some hyperextension of the knee. She has a 2+ dorsalis pedis pulse. She has intact sensation. She is able to dorsiflex and plantar flex; however, she has weakness with dorsiflexion at 3-/5. ASSESSMENT AND PLAN: Ms. Card is a 78-year-old female with end-stage osteoarthritis of the right knee. She has failed conservative treatment and elected to proceed with a right total knee arthroplasty. The surgery is scheduled for 03/22/[address] Mesa discussed the risks and benefits of the surgery at today's visit and all of her questions were answered. She will follow up with Dr. Mesa 2 weeks after the surgery. HUGH PRATER [id number]/[facility] #: [id number] MTDD
--- NOTE | 2019-04-20 10:04 | HP ---
Amended report to enter cosigning physician. HISTORY AND PHYSICAL: DATE OF SURGERY: 04/28/19 DATE OF OFFICE VISIT: 04/18/19 SURGEON: Carla Mesa MD* (dictated by HUGH Prater). PROCEDURE: Right total knee arthroplasty. CHIEF COMPLAINT: Right knee pain. HISTORY OF PRESENT ILLNESS: Ms. Card is a 78-year-old female with continued complaints of right knee pain. She has failed conservative treatment and elected to proceed with a right total knee arthroplasty. PAST MEDICAL HISTORY: Denies. PAST SURGICAL HISTORY: Appendectomy, tubal ligation, lumbar diskectomy and fusion, bunionectomy, breast reduction, bilateral shoulder arthroscopies, right thumb surgery and a left total knee arthroplasty. CURRENT MEDICATIONS: 1. Alendronate sodium 70 mg a week. 2. Multivitamin. 3. Calcium carbonate. ALLERGIES: To AMOXICILLIN, OXYCONTIN, CONTRAST DYE, NITROFURANTOIN, SULFA ANTIBIOTICS and DOXYCYCLINE. FAMILY HISTORY: Coronary artery disease, stroke, DVT and cancer. SOCIAL HISTORY: She is a 78-year-old female. She lives alone. She does not smoke or use drugs. REVIEW OF SYSTEMS: A complete 14-point review of systems was reviewed with the patient; it was all negative or noncontributory. She denies history of DVT, PE , hepatitis, HIV, or anesthesia problems. PHYSICAL EXAMINATION GENERAL: She is well developed, well nourished, in no acute distress. VITAL SIGNS: She stands 60 inches tall, weighs 149 pounds. Her blood pressure is 142/80, heart rate is 70. HEENT: Normocephalic, atraumatic. NECK: Supple. No palpable lymph nodes. PULMONARY: The lungs are clear to auscultation bilaterally. CARDIO: Regular rate and rhythm. Strong S1, S2. ABDOMEN: Soft, nontender, nondistended. NEUROLOGICAL: She is alert and oriented x3. MUSCULOSKELETAL: Right lower extremity: The skin is intact. There are no open wounds or abrasions. There is a moderate effusion of the right knee joint. She walks with an antalgic type gait favoring her right knee. She has tenderness over the medial and lateral joint line. She is able to dorsiflex and plantar flex. She has a 2+ dorsalis pedis pulse and intact sensation. ASSESSMENT AND PLAN: Ms. Card is a 78-year-old female with end-stage osteoarthritis of the right knee. She has failed conservative treatment and elected to proceed with a right total knee arthroplasty. The surgery is scheduled for 04/28/[address] Mesa discussed the risks and benefits of the surgery at today's visit and all of her questions were answered. She will follow up with Dr. Mesa 2 weeks after the surgery. HUGH PRATER [id number]/[facility] #: [id number] MTDLee
[2019-04-27] MEDS ORDERED: Buffered Lidocaine 1% SYRIN* 1 ML/SYRINGE INTRADERM ONE (09:51)
[2019-04-28] MEDS ORDERED: Tranexamic Acid 1,000 MG in NS 0.9% 50 ML* (outpatient use) IV SCH ×2
--- OUTSIDE RECORDS SUMMARY | 2019-04-28 05:39 | XMS REPORT | Continuity of Care Document ---
:1940 External Reference #:[id number] Author Name Jennifer De Paz Care Team Providers Name Role Phone Edwin Fish MD Primary Care Physician Unavailable Payers Date Identification Numbers Payment Provider Subscriber Policy Number: [id number] Medicare Yuliya Madrid PayID: [id number] [address] [place], [place] [address] Expires: 2018 Policy Number: [id number] Medicare Yuliya Madrid PayID: [id number] [address] [place] [address] Policy Number: [id number] [facility] Yuliya Madrid PayID: [id number] [address] [place] [address] Problems Active Problems Provider Date Localized, primary osteoarthritis Carla Mesa M.D. Onset: 06/16/2018 Arthroplasty of knee Carla Mesa M.D. Onset: 06/16/2018 Instability of internal left knee prosthesis, Carla Mesa M.D. Onset: 08/02 subsequent encounter Knee joint effusion Carla Mesa M.D. Onset: 03/09/2019 Family History Date Family Member(s) Observation Comments General Diabetes General Heart Disease General Stroke General Cancer General Rheumatoid Arthritis General factor 5 clotting Father Stroke Mother Diabetes Siblings 1 Social History Type Date Description Comments Sex Unknown Marital Status Lives With Alone Occupation Retired Tobacco Use Start: Unknown Never Smoked Cigarettes Smoking Status Reviewed: 04/18/19 Never Smoked Cigarettes ETOH Use Denies alcohol use Tobacco Use Start: Unknown Patient has never smoked Recreational Drug Use Denies Drug Use Exercise Type/Frequency Exercises regularly [employer] classes , 2 x week. Some walking. Allergies, Adverse Reactions, Alerts Active Allergies Reaction Severity Comments Date Amoxicillin 06/16/2018 Oxycontin 06/16/2018 CT Dye 06/16/2018 Flu Shot 06/16/2018 Nitrofurantoin 06/16/2018 Sulfa Antibiotics 03/07/2019 Doxycycline 03/07/2019 Trimeth 03/09/2019 Acetaminophen / Hydrocodone 03/16/2019 Medications Active Medications SIG Qnty Indications Ordering Provider Date Clindamycin HCL take two tabs 2caps Carla Mesa M.D. 03/18/2019 300mg one hour prior Capsules to dental work [place] 3 3 tabs daily Unknown 1000mg Capsules Glucosamine Unknown Chondroitin 1500 Complex 1500Com Capsules Arthritis Pain Relief 2 tabs by mouth Unknown twice a day 650mg Tablets ER Vitamin C ER 1 by mouth every Unknown 500mg day Capsules ER Cranberry Extract Unknown 200mg Capsules Calcium Carbonate 2 [id number] Unknown Antacid 500mg Chewtabs Multivitamin Adults once daily Unknown Tablets Co-Q 10 [place]-3 Fish daily Unknown Oil [place]-3 Capsules Alendronate Sodium weekly Odalys, 70mg MD Edwin Tablets Metamucil as needed Unknown History Medications Omeprazole 1 by mouth daily Edwin Fish, - 20mg Capsules DR CAMPOVERDE 03/08/2019 Multivitamin Unknown - 02/08/2019 [place] 3 Unknown - 09/05/2018 Calcium + D Unknown - 02/08/2019 Equate Unknown - 07/18/2018 Acetaminophen 2 tablets by Unknown - 325mg Tablets mouth every 6 03/15/2019 hours as needed for pain/fever Clindamycin HCL Landen Valiente, - 300mg 03/18/2019 Capsules Glucosamine Chondroitin Unknown - 1500 Complex 03/08/2019 1500Com Capsules Equate Unknown - Liquid 02/08/2019 Medications Administered in Office Medication SIG Qnty Indications Ordering Provider Date Inj, Regadenoson, 0.1 MG David Rowland M.D. 03/18/2019 Injection Technetium TC 99M Tetrofosmin, David Rowland M.D. 03/18/2019 Per Unit Dose Up To 40 Millicuries Injection Technetium TC 99M Tetrofosmin, David Rowland M.D. 03/18/2019 Per Unit Dose Up To 40 Millicuries Injection Vital Signs Date Vital Result Comment 04/18/2019 9:45am Height 60 inches 5'0" Weight 149.00 lb Heart Rate 70 /min BP Systolic 142 mmHg BP Diastolic 80 mmHg Respiratory Rate 12 /min Body Temperature 99.1 F Pain Level 0 BMI (Body Mass Index) 29.1 kg/m2 03/16/2019 8:07am Height 60 inches 5'0" Weight 147.00 lb w/shoes Heart Rate 68 /min BP Systolic 140 mmHg Rue reg cuff BP Diastolic 80 mmHg Rue reg cuff BP Systolic Sitting 142 mmHg Lue reg cuff BP Diastolic Sitting 80 mmHg Lue reg cuff BP Systolic Standing 142 mmHg Lue reg cuff BP Diastolic Standing 82 mmHg Lue reg cuff Respiratory Rate 16 /min BMI (Body Mass Index) 28.7 kg/m2 03/09/2019 9:43am Height 60 inches 5'0" Weight 147.00 lb Heart Rate 84 /min BP Systolic 126 mmHg BP Diastolic 82 mmHg Respiratory Rate 16 /min Body Temperature 98.4 F Pain Level 0 BMI (Body Mass Index) 28.7 kg/m2 01/26/2019 9:59am Height 60 inches 5'0" Weight [...] BMI (Body Mass Index) 28.1 kg/m2 Results Test Date Facility Test Result H/L Range Note Inr/Protime 03/09/2019 [facility] Inr 0.95 N 0.82-1.09 1, [address] [place] [address] [phone] Laboratory test 03/09/2019 [facility] Partial 28.8 seconds N 26.0-36.[address] [place] [address] PTT [phone] Type & Screen 03/09/2019 [facility] Patient Blood O Positive [address] [place] [address] [phone] Antibody Screen NEGATIVE Urinalysis Profile 03/09/2019 [facility] Urine Color Yellow [address] [place] [address] [phone] Urine Appearance Cloudy Urine Specific [place] 1.015 N 1.010-1.030 Urine pH 7.0 N 5-9 Urine Urobilinogen Negative Negative Urine Ketones Negative Negative Urine Protein Negative Negative Urine Leukocytes Trace Abnormal Negative Urine Blood Negative Negative * * Abnormal Negative 3 Urine Nitrite Negative Negative Urine Bilirubin Negative Negative Urine Glucose Negative Negative Urine White Blood Cell Trace(0-5/hpf) Absent Urine Red Blood Cell Absent Absent Urine Bacteria Absent Absent Urine Squamous Epithelial Cell Present Abnormal Absent Urine Culture And 03/09/2019 [facility] Urine Culture SEE RESULT [address] [place] [address] [phone] 1 PAIN IN RIGHT KNEE, EFFUSION, RIGHT KNEE, UNILATER 2 Standard intensity warfarin therapeutic range: 2.0-3.0 High intensity warfarin therapeutic range: 2.5-3.5 3 *Ascorbic acid is present which may interfere with detection of blood. 4 SEE RESULT BELOW Name: YULIYA MADRID : [address]: Carla Mesa MD Acct: [id number] Unit: [id number] AGE: 78 Location: [facility] Re03/09/19 SEX: F Status: REG REF SPEC: [id number] FIORDALIZA: 03/09/19-[address]: Carla Mesa MD REQ: [id number] RECD: 03/09/19 STATUS: NIKI CHAMPION DR: Edwin Fish Jr, MD _ SOURCE: URINE SPDESC: ORDERED: Urine Culture QUERIES: Urine Source: Clean Catch Procedure Result Reported Site Urine Culture Final 03/10/19- 1204 ML No Growth (<1,000 CFU/mL) * ML - Main Lab . END OF REPORT DEPARTMENT OF PATHOLOGY, [address] [place] [address] Landen Pittman M.D. Director [facility] # [id number] Procedures Date Code Description Status 03/18/2019 56151 Stress Test Completed 03/18/2019 28874 Myocardial Perfusion Imaging Tomographic (Spect) Multiple Completed Studies 03/16/2019 13343 EKG Tracing & Interpretation Completed Encounters Type Date Location Provider Dx Diagnosis Office Visit 03/16/2019 [facility] David Jackson R94.31 Abnormal 8:30a Of Jennifer Rowland M.D. electrocardiogram [ECG] [EKG] Z01.810 Encounter for preprocedural cardiovascular examination I10 Essential (primary) hypertension M17.11 Unilateral primary osteoarthritis, right knee Office Visit 01/26/2019 9:[facility]a [facility] Carla Mesa, M25.561 Pain in right Of C.M.A. M.D. 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 M.D. knee M25.461 Effusion, right [...] Office Visit 06/16/2018 11:00a [facility] Carla Hendricksonke, M25.562 Pain in left Of C.M.A. M.D. knee M25.561 Pain in right knee M25.462 Effusion, left knee M25.461 Effusion, right knee M17.11 Unilateral primary osteoarthritis, right knee Z96.652 Presence of left artificial knee joint M21.061 Valgus deformity, not elsewhere classified, right knee T84.023A Instability of internal left knee prosthesis, init encntr Plan of Treatment Future Appointment(s):05/09/2019 11:00 am - HUGH Montgomery at [facility].04/28/2019 8:15 am - [facility]04/28/2019 8:15 am - [facility] Lance [facility]04/28/2019 8:15 am - Carla Mesa M.D. at [facility].04/18/2019 - Carla Mesa M.D.M25.561 Pain in right kneeFollow up:Follow up: 2 weeks after ilxjddmR36.11 Unilateral primary osteoarthritis, right kneeM25.461 Effusion, right knee
--- OUTSIDE RECORDS SUMMARY | 2019-04-28 05:39 | XMS REPORT | Continuity of Care Document ---
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 Payers Date Identification Numbers Payment Provider Subscriber Effective: 2005 Policy Number: [id number] Medicare Part B Yuliya Card PayID: [id number] [address] [place] [address] Policy Number: [id number] [facility] Options Yuliya Card PayID: [id number] [address] [place] [address] Problems Active Problems Provider Date Anxiety state Edwin Morrow MD Onset: 10/23/2014 Arthroplasty of knee Edwin Morrow MD Onset: 10/23/2014 Idiopathic peripheral neuropathy Edwin Morrow MD Onset: 03/18/2005 Gastroesophageal reflux disease Edwin Morrow MD Onset: 03/18/2005 Pure hypercholesterolemia Edwin Morrow MD Onset: 06/27/2005 Benign neoplasm of colon Edwin Morrow MD Onset: 03/30/2007 Degenerative joint disease involving Edwin Morrow MD Onset: 2007 multiple joints Edema Edwin Morrow MD Onset: 04/12/2009 Elevated blood-pressure reading without Edwin Morrow MD Onset: 2010 diagnosis of hypertension Osteopenia Edwin Morrow MD Onset: 06/20/2015 Degeneration of lumbar intervertebral disc Edwin Morrow MD Onset: Localized, primary osteoarthritis Edwin Morrow MD Onset: 07/16/2018 Inactive Problems Localized, primary osteoarthritis of the Edwin Morrow MD Onset: 02/05 lower leg Inactive: 06/20/2015 Osteochondropathy Edwin Morrow MD Onset: 03/30/2007 Inactive: 06/20/2015 Intrinsic asthma without status asthmaticus Edwin Morrow MD Onset: Inactive: 12/24/2015 Allergic rhinitis Edwin Morrow MD Onset: 08/01/2005 Inactive: 12/24/2015 Resolved Problems Mild recurrent major depression Edwin Morrow MD Onset: 08/01/2005 Resolved: 02/01/2019 Family History Date Family Member(s) [...] has never smoked Allergies, Adverse Reactions, Alerts Active Allergies Reaction Severity Comments Date Flu Shot Moderate Localized RXN 11/27/2014 Sulfa Drugs ? 11/27/2014 Doxycycline vomiting N/V 09/15/2011 Amoxicillin rash 01/16/2006 Oxycodone Itching 03/14/2005 Contrast Dye Mild itching 07/01/2017 Nitrofurantoin, Macrocrystals / Nausea and Vomiting 09/29/2017 Nitrofurantoin, Monohydrate Medications Active Medications SIG Qnty Indications Ordering Date Provider Cephalexin 1 pill by mouth 3 15caps T50.B95A Digiovanna, 04/19/2019 250mg times a day for 5 MD Edwin Capsules days Wheeled Walker W/ Dx: end stage r knee 1units M17.11 Digiovanna, 2018 Seat, Brakes osteoarthritis MD Edwin Furosemide 1 by mouth every day 30tabs R60.0 Madden, 04/12/2019 20mg as needed for edema Spencer, Tablets Fish Oil Drumright-3 1 by mouth every day E78.00 Odalys, 03/04/2018 otc MD Edwin 1000mg Capsules Fluticasone 1-2 sprays to each 15.800ml J06.9 Wilde, 12/18/2017 Propionate nostril daily as MD Hannah needed 50mcg/Act Suspension Multivitamin Adults 1 by mouth every day 90tabs Odalys, 05/14/2017 50+ MD Edwin Adlt 50+ Tablets Alendronate Sodium take 1 tablet every 12tabs M85.89 Odalys, 2016 week in the morning - MD Edwin 70mg Tablets take with 8oz water and remain upright and nothing by mouth for 30 minutes M85.80 Acetaminophen ER 2 by mouth twice otc M51.36 Edwin Morrow, 2016 650mg a day as needed MD Tablets ER for pain Calcium Carbonate 2 po bid prn M85.80 Edwin Morrow J Antacid 500mg Chewtabs Vitamin E One by mouth Unknown 600Unit Capsules daily History Medications Azithromycin 2 tablets by 6tabs J01.90 Spencer Madden, 04/12/2019 - 250mg mouth on day 1 DO 04/17/2019 Tablets then 1 tablet on days 2-5 Lorazepam 1 by mouth 1 1tabs Odalys, 03/16/2019 - 1mg Tablets hour before MD Edwin 03/17/2019 stress test Cephalexin 1 by mouth 15caps N39.0 Odalys, 02/01/2019 - 500mg three times a MD Edwin 02/06/2019 Capsules day for 5 days Clindamycin HCL 2 pills by 2caps Odalys, 10/05/2018 - 300mg mouth 1 hour MD Edwin 10/07/2018 Capsules pre-dental work Ranitidine 150 1 by mouth 30tabs R10.10 Heatheriovincent, 08/24/2018 - Maximum Strength twice a day as LINWOOD [place] 01/26/2019 150mg needed Tablets Azithromycin 2 pills by 6tabs L03.211 Odalys, 04/20/2018 - 250mg mouth day 1, MD Edwin 04/30/2018 Tablets then 1 pill once daily for 4 more days (take w/ food) Ciprofloxacin HCL 1 by mouth 10tabs R30.0 Digiovanna, 09/29/2017 - 250mg twice a day 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, 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 10/04/2017 Tablets 5 days Tizanidine HCL 1 by mouth at 14tabs M54.5 Spencer Madden, 08/13/2017 - 2mg bedtime DO 09/29/2017 Tablets Lorazepam 1 by mouth 1 1tabs Odalys, 03/03/2017 - 1mg Tablets hour pre-mri MD Edwin 03/10/2017 Dexamethasone 4 po q d x 3 QS M48.06 Chantelle, 02/26/2017 - 0.5mg days then 3 po Reji, DO 05/14/2017 Tablets q d x 3 days then 2 po q d x 3 then 3 days then 1 po q d x 3 days then stop Duloxetine HCL take one 90caps M51.36 Odalys, 02/26/2017 - 30mg capsule by MD Edwin 01/05/[address] Kumar mouth every day G60.9 F33.0 Azelastine HCL spray 1 spray in 30ml H68.001 Spencer Madden, 10/09/2016 - (Nasal) each nostril two DO 07/01/2017 0.15% times a day Solution Frye Colon one daily or use Digiovanmarie, 08/27/2016 - Health align daily both MD Edwin 03/04/2018 Capsules over the counter Loperamide HCL take one capsule 90caps A09 Odalys, 06/23/2016 - 2mg by mouth three MD Edwin 06/30/2016 Capsules times a day as needed for loose stools Kaopectate Extra as directed A09 Odalys, 06/23/2016 - Strength MD Edwin 06/30/2016 525mg/15ML Suspension Cephalexin 1 pill by mouth 3 15tabs R21 Odalys, 06/04/2016 - 250mg times a day for 5 MD Edwin 06/09/2016 Tablets days Duloxetine HCL 1 by mouth every 30caps M51.36 Odalys, 12/06/2015 - 20mg day MD Edwin 02/26/[address] Kumar G60.9 F33.0 Citalopram 1 by mouth 30tabs M51.36 Odalys, 12/05/2015 - Hydrobromide every day MD Edwin Unknown 10mg Tablets G60.9 F32.8 Duloxetine HCL 1 by mouth 30caps M51.36 Edwin Morrow, 12/04/2015 - 20mg every day 05/26/[address] Kumar G60.9 F32.8 Nitrofurantoin 1 by mouth twice 14caps R30.0 Spencer Madden, 10/11/2015 - Macrocrystal a day x 7 days DO 10/18/2015 100mg Capsules Prednisone 2 by mouth daily 10tabs M54.5 Spencer Madden, 10/11/2015 - 20mg Tablets x 5 days DO 10/16/2015 Lorazepam 1 by mouth 1 hour 1tabs Odalys, 08/24/2015 - 1mg Tablets pre-MRI MD Edwin 09/03/2015 Tramadol HCL 1/2 or 1 pill by 30tabs M54.2 Odalys, 08/14/2015 - 50mg Tablets mouth 3 times a MD Edwin 02/26/2017 day as neededfor neck and arm pain R20.2 Prednisone 1 pill by 10tabs M54.2 Odalys, 08/07/2015 - 20mg mouth twice a MD Edwin 09/18/2015 Tablets day with food for 5 days Tizanidine HCL 1-2 po qhs prn 14tabs 733.6 Spencer Madden, DO 07/26/2015 - 2mg pain 08/03/2015 Tablets Biotin 1 PO qd OTC Odalys, 02/08/2015 - Tablets MD Edwin 12/31/2016 Citalopram 1/2 by mouth 300.00 Odalys, 11/07/2014 - Hydrobromide every day MD Edwin 12/04/2014 20mg Tablets Naproxen 1 by mouth 180tabs M15.0 Odalys, 10/23/2014 - 375mg twice a day MD Edwin 12/10/2016 Tablets with food as needed pain/arthritis Z96.659 M15.9 Hydroxyzine HCL 1 by mouth up to 50tabs Edwin Morrow 10/17/2014 - 3 times a day as Jose E CAMPOVERDE 02/12/2015 10mg Tablets needed for anxiety, and 2 at bedtime if needed for sleep Omeprazole Take Two 180caps K21.9 Odalys 10/31/2011 - 20mg Capsules By MD Edwin 08/24/[address] Mouth Every Morning R10.13 Sea-Drumright 50 3PO qd E78.0 Edwin Morrow 10/09/2008 - 1000mg Jose E CAMPOVERDE 08/24/2018 Capsules Glucosamine 1 po qd Unknown - Chondroitin 1500 03/04/2018 Complex 1500Com Capsules Premarin 1/2 applicator Unknown - 0.625mg/GM Cream full vaginally 03/04/2018 2x/week Oxycodone HCL 1 by mouth every 4 Unknown - 5mg Tablets hours as needed 09/29/2017 pain Naproxen 1 tab by mouth Unknown - 250mg Tablets twice a day as 09/29/2017 needed after meals Docusate Sodium 1 by mouth twice a Unknown - 100mg day 09/29/2017 Capsules Ciprofloxacin HCL Take One Tablet By Unknown - 500mg Mouth Twice A Day 03/07/2019 Tablets Immunizations CPT Code Status Date Vaccine Reaction Lot # [id number] Given 04/17/2019 Shingrix (Shingles) Zoster Vaccine HZV, KINNEYS Recombinant, Subunit, Adj 98959 Given 01/28/2019 Shingrix (Shingles) Zoster Vaccine HZV, GILNEYS Recombinant, Subunit, Adj 12969 Given 06/20/2015 Prevnar 13 Pneumococal Conjugate Vaccine [id number] 45502 Given 06/02/2012 Tdap (Adacel) Ages 7 And Above Only 25428 Given 10/09/2008 Pneumococcal 23 Immunization Adult Or Immunosuppressed Patient 55364 Given 10/09/2008 Pneumococcal 23 Immunization Adult Or Immunosuppressed Patient 50061 Given 10/04/2007 Zoster (Zostavax) 50783 Refused 07/16/2018 Fluzone Highdose Age 65 And Over Preservative & Antibiotic Free 36452 Refused 09/29/2017 Influenza Vac, Quadrivalent, Split, 0.5mL Dosage, [id number] Im Use Vital Signs Date Vital Result Comment 04/19/2019 5:03pm Weight 147.00 lb Heart Rate 80 /min BP Systolic 136 mmHg BP Diastolic 72 mmHg 04/12/2019 11:28am Body Temperature 97.9 F Weight 149.00 lb Heart Rate 78 /min BP Systolic 140 mmHg BP Diastolic 70 mmHg Respiratory Rate 18 /min Height 60 inches 5'0" O2 % BldC Oximetry 95 % BMI (Body Mass Index) 29.1 kg/m2 03/07/2019 10:34am Weight 146.00 lb Heart Rate 72 /min BP Systolic 122 mmHg BP Diastolic 80 mmHg Respiratory Rate 18 /min Height 60 inches 5'0" BMI (Body Mass Index) 28.5 kg/m2 02/01/2019 4:57pm Body Temperature 98.6 F Weight 148.00 lb Heart Rate 86 /min BP Systolic 128 mmHg BP Diastolic 76 mmHg Respiratory Rate 16 /min Height 60 inches 5'0" O2 % BldC Oximetry 97 % Ra BMI (Body Mass Index) 28.9 kg/m2 01/26/2019 1:24pm Weight 148.00 lb Heart Rate 72 /min BP Systolic 132 mmHg BP Diastolic 80 mmHg Height 60 inches 5'0" BMI (Body Mass Index) 28.9 kg/m2 12/28/2018 11:19am Weight 151.50 lb Heart Rate [...] Test Result H/L Range Note Basic (BMP) 03/07/2019 [facility] Sodium 143 mmol/L 135-146 1, 2 Potassium 4.3 mmol/L 3.5-5.2 Chloride# 106 mmol/L 97-110 3 Carbon Dioxide 33 mmol/L 24-34 Glucose 98 mg/dL 70-105 BUN 18 mg/dL 6-26 Creatinine 0.8 mg/dL 0.5-1.4 Calcium 9.6 mg/dL 8.5-10.2 Female Egfr 71 >60 4 Male Egfr 87 >60 5 Anion Gap 4 mmol/L Low 5-15 6 CBC with Auto Diff-fcmg 03/07/2019 [facility] WBC 5.1 K/uL 4.1-11.0 RBC 4.28 M/uL 4.00-5.40 Hemoglobin 14.2 gm/dL 12.0-16.0 Hematocrit 41.4 % 36.0-47.0 MCV 96.7 fL 80.0-97.0 MCH 33.2 pg High 27.0-32.0 MCHC 34.3 g/dL 32.0-36.0 RDW 12.5 % 11.5-14.5 PLT Count 163 K/ul 140-400 MPV 11.4 FL High 7.1-10.7 Neutrophil 57.3 % 35.0-75.0 Lymphocyte 33.1 % 16.0-52.0 Monocyte 7.0 % 2.0-10.0 Eosinophil 1.8 % 0.0-5.0 Basophil 0.8 % 0.0-4.0 Abs Neutrophils 2.9 K/uL 2.1-8.0 Abs Lymphocytes 1.7 K/uL 0.8-5.5 Abs Monocytes 0.4 K/uL 0.1-1.0 Abs Eosinophils 0.1 K/uL 0.0-0.5 Abs Basophils 0.0 K/uL 0.0-0.3 Laboratory test 02/01/2019 [facility] Urine Culture Microbiology res 7 finding <SEE NOTE> Basic (BMP) 01/19/2019 [facility] Sodium 145 mmol/L 135-146 8, 9 Potassium 3.8 mmol/L 3.5-5.2 Chloride# 106 mmol/L 97-110 10 Carbon Dioxide 30 mmol/L 24-34 Glucose 89 mg/dL 70-105 BUN 15 mg/dL 6-26 Creatinine 0.7 mg/dL 0.5-1.4 Calcium 8.8 mg/dL 8.5-10.2 Non Elizabeth Egfr >60 >60 11 Elizabeth Egfr >60 >60 12 Anion Gap 9 mmol/L 5-15 13 Lipid Treatment 01/19/2019 [facility] Cholesterol 204 mg/dL High 50-199 Triglycerides 231 mg/dL High 30-200 HDL 39 mg/dL 35-85 14 Chol/ HDL Ratio 5.3 ratio 3.7-5.6 VLDL 46 mg/dL High 2-29 LDL (Calc) 119 mg/dL High 20-99 15 Alt 12 U/L 3-42 Ast 16 U/L 8-42 Laboratory test finding 01/19/2019 [facility] Vitamin D 25 Hydroxy 32 ng/mL 30-100 16 TSH 1.31 uIU/mL 0.35-4.94 Magnesium 2.2 mg/dL 1.5-2.7 Vitamin B12 307 pg/mL 180-914 Basic (BMP) 06/30/2018 [facility] Sodium 144 mmol/L 135-146 17, 18 Potassium 4.1 mmol/L 3.5-5.2 Chloride# 106 mmol/L 97-110 19 Carbon Dioxide 28 mmol/L 24-34 Glucose 85 mg/dL 70-105 BUN 17 mg/dL 6-26 Creatinine 0.8 mg/dL 0.5-1.4 Calcium 9.0 mg/dL 8.5-10.2 Non Elizabeth Egfr >60 >60 20 Elizabeth Egfr >60 >60 21 Anion Gap 10 mmol/L 5-15 22 Lipid Treatment 06/30/2018 [facility] Cholesterol 181 mg/dL 50-199 Triglycerides 210 mg/dL High 30-200 HDL 43 mg/dL 35-85 23 Chol/ HDL Ratio 4.2 ratio 3.7-5.6 VLDL 42 mg/dL High 2-29 LDL (Calc) 96 mg/dL 20-99 24 Alt 12 U/L 3-42 Ast 16 U/L 8-42 CBC with Auto Diff-fcmg 06/30/2018 [facility] WBC 4.9 K/uL 4.1-11.0 25 RBC 4.44 M/uL 4.00-5.40 Hemoglobin 14.2 gm/dL [...] 0.1 K/uL 0.0-0.3 Laboratory test finding 06/30/2018 [facility] CRP (C-Reactive) 0.21 mg/dL 0.00-0.75 Esr 14 mm/hr 0-20 Basic (BMP) 12/29/2017 [facility] Sodium 144 mmol/L 135-146 26, 27 Potassium 4.3 mmol/L 3.5-5.2 Chloride# 104 mmol/L 97-110 28 Carbon Dioxide 32 mmol/L 24-34 Glucose 87 mg/dL 70-105 BUN 17 mg/dL 6-26 Creatinine 0.8 mg/dL 0.5-1.4 Calcium 9.3 mg/dL 8.5-10.2 Non Elizabeth Egfr >60 >60 29 Elizabeth Egfr >60 >60 30 Anion Gap 8 mmol/L 5-15 31 Lipid Treatment 12/29/2017 [facility] Cholesterol 216 mg/dL High 50-199 Triglycerides 245 mg/dL High 30-200 HDL 45 mg/dL 35-85 32 Chol/ HDL Ratio 4.8 ratio 3.7-5.6 VLDL 49 mg/dL High 2-29 LDL (Calc) 122 mg/dL High 20-99 33 Alt 10 U/L 3-42 Ast 15 U/L 8-42 Laboratory test finding 12/29/2017 [facility] Vitamin D 25 Hydroxy 35 ng/mL 30-100 34 Magnesium 2.2 mg/dL 1.5-2.7 Vitamin B12 392 pg/mL 180-914 CBC With Auto Diff 12/29/2017 [facility] WBC 5.3 K/uL 4.1-11.0 RBC 4.42 M/uL [...] K/uL 0.0-0.3 CBC With Auto Diff 12/01/2017 [facility] WBC 5.5 K/uL 4.1-11.0 RBC 4.43 M/uL [...] 0.0 K/uL 0.0-0.3 Comprehensive Met Panel-FCMG 12/01/2017 [facility] Sodium 142 mmol/L 135- 146 35 Potassium 4.2 mmol/L 3.5-5.2 Chloride# 103 mmol/L 97-110 36 Carbon Dioxide 34 mmol/L 24-34 Glucose 75 mg/dL 70-105 BUN 16 mg/dL 6-26 Creatinine 0.8 mg/dL 0.5-1.4 Calcium 10.1 mg/dL 8.5-10.2 Total Protein 6.6 g/dL 6.0-8.0 Albumin 4.3 g/dL 3.6-4.9 Globulin 2.3 g/dL 2.0-3.5 A/G Ratio 1.9 Ratio 1.0-2.2 Total Bilirubin 0.4 mg/dL 0.1-1.3 Alkaline Phosphatase 98 U/L 24-140 Alt 12 U/L 3-42 Ast 17 U/L 8-42 Elizabeth Egfr >60 >60 37 Non Elizabeth Egfr >60 >60 38 Anion Gap 5 mmol/L Low 7-16 39 Laboratory test finding 12/01/2017 [facility] Amylase 33 U/L 29-103 Lipase 6 U/L Low 11-82 Laboratory test 09/29/2017 [facility] Urine Culture Microbiology res 40 finding <SEE NOTE> Laboratory test 09/14/2017 [facility] CRP 0.27 mg/dL 0.00-0.7 finding (C-Reactive) 5 CBC With Auto Diff 09/10/2017 [facility] WBC 4.9 K/uL 4.1-11.0 RBC 3.97 M/uL [...] 08/11/2017 [facility] Enteric Pathogens By SEE NOTE 41 PCR Giard/Cryptosp Exam SEE NOTE 42 Lactoferrin,Fecal NEGATIVE (Neg) 43 C Diff Toxin B/PCR-RL 08/11/2017 [facility] Specimen Description STOOL C Diff Toxin B NEGATIVE (Neg) 027 Nap1 B1 NEGATIVE (Neg) Comment NOTE: IF REFLEX <SEE NOTE> 44 Laboratory test finding 01/05/2017 [facility] H. Pylori Stool Ag SEE NOTE 45 Laboratory test finding 12/24/2016 [facility] Vit D,25 Hydroxy 40 ng/mL 31- 100 46 Lipid Treatment 12/24/2016 [facility] Cholesterol 163 mg/dL 50-199 Triglycerides 135 mg/dL 30-200 HDL 42 mg/dL 35-85 47 Chol/ HDL Ratio 3.9 ratio 3.7-5.6 VLDL 27 mg/dL 2-29 LDL (Calc) 94 mg/dL 20-99 48 Alt 11 U/L 3-42 Ast 14 U/L 8-42 Basic (BMP) 12/24/2016 [facility] Sodium 141 mmol/L 134-142 Potassium 4.2 mmol/L 3.5-5.2 Chloride 105 mmol/L 97-109 Carbon Dioxide 31 mmol/L 24-34 Glucose 96 mg/dL 70-105 BUN 18 mg/dL 6-26 Creatinine 0.8 mg/dL 0.5-1.4 Calcium 9.0 mg/dL 8.5-10.2 Anion Gap 9 mmol/L 6-14 Non Elizabeth Egfr >60 >60 49 Elizabeth Egfr >60 >60 50 Laboratory test finding 06/16/2016 [facility] Magnesium 1.9 mg/dL 1.5-2.7 51 Vitamin B12 411 pg/mL 180-914 Vit D,25 Hydroxy 36 ng/mL 31-100 Lipid 06/16/2016 [facility] Cholesterol 168 mg/dL 50-199 Triglycerides 134 mg/dL 30-200 HDL 46 mg/dL 35-85 52 Chol/ HDL Ratio 3.7 ratio 3.7-5.6 VLDL 27 mg/dL 2-29 LDL (Calc) 95 mg/dL 20-99 53 Hepatic Panel (LFT) 06/16/2016 [facility] Total Protein [...] Basophils 0.1 K/uL 0.0-0.3 Basic (BMP) 06/16/2016 [facility] Sodium 142 mmol/L 134-142 Potassium 4.2 mmol/L 3.5-5.2 Chloride 104 mmol/L 97-109 Carbon Dioxide 31 mmol/L 24-34 Glucose 86 mg/dL 70-105 BUN 19 mg/dL 6-26 Creatinine 0.8 mg/dL 0.5-1.4 Calcium 9.0 mg/dL 8.5-10.2 Anion Gap 11 mmol/L 6-14 Non Elizabeth Egfr >60 >60 54 Elizabeth Egfr >60 >60 55 Lipid 12/12/2015 [facility] Cholesterol 155 mg/dL 50-199 56 Triglycerides 112 mg/dL 30-200 HDL 42 mg/dL 35-85 57 Chol/ HDL Ratio 3.7 ratio 3.7-5.6 VLDL 22 mg/dL 2-29 LDL (Calc) 91 mg/dL 20-99 58 Urinalysis With 11/28/2015 [facility] Urine Color YELLOW Yellow Microscopic (315)- - Urine Clarity CLEAR Clear Urine Glucose - Dipstick NEGATIVE mg/dL Negative Urine Bilirubin - Dipstick NEGATIVE Negative Urine Ketone 15 mg/dL High Negative Urine Specific Ruffin 1.010 1.010-1.030 Urine Blood NEGATIVE Negative Urine PH 6.5 6.5-7.5 Urine Protein - Dipstick NEGATIVE mg/dL Negative Urine Urobilinogen - Dipstick 0.2 E.U./dL 0.2-1.0 Urine Nitrite - Dipstick NEGATIVE Negative Urine Leuk Esterase LARGE High Negative Urine RBC 2-5 rbc/hpf 0-2 Urine WBC 10-20 wbc/hpf High 0-7 Urine Epithelial Cells MODERATE NONESEEN/lpf 59 Urine Bacteria FEW NONESEEN Urine Mucus SMALL NONESEEN Urine Screen 11/28/2015 [facility] Ua RFX Micro See Note 60 (315)- - + Culture II Urine Culture 11/28/2015 [facility] Urine Culture See Note 61 (315)- - Comprehensive 11/28/2015 [facility] Glucose 107 mg/dL High 74-106 Metabolic Panel (315)- - BUN 16 mg/dL 7-18 Creatinine 0.9 mg/dL 0.6-1.3 Glom Filtration Rate, Estimate >60 mL/min >60 If >60 mL/min >60 62 BUN/Creat 17.7 ratio Sodium 142 mmol/L 136-145 [...] Alkaline Phosphatase 85 U/L 45-117 CBC 11/28/2015 [facility] White Blood Count 6.2 K/uL [...] (BMP) 11/26/2015 [facility] Sodium 135 mmol/L 134-142 63 Potassium 4.8 mmol/L 3.5-5.2 Chloride 99 mmol/L 97-109 Carbon Dioxide 30 mmol/L 24-34 Glucose 108 mg/dL High 70-105 BUN 16 mg/dL 6-26 Creatinine 0.9 mg/dL 0.5-1.4 Calcium 9.6 mg/dL 8.5-10.2 Anion Gap 11 mmol/L 6-14 Non Elizabeth Egfr >60 >60 64 Elizabeth Egfr >60 >60 65 CBC With Auto Diff 11/26/2015 [facility] WBC 6.4 K/uL 4.1-11.0 RBC 4.57 M/uL [...] 10/11/2015 [facility] Urine Culture Microbiology res Abnormal 66 finding <SEE NOTE> Lipid Treatment 06/13/2015 [facility] Cholesterol 197 mg/dL 50-199 67 Triglycerides 145 mg/dL 30-200 HDL 48 mg/dL 35-85 68 Chol/ HDL Ratio 4.1 ratio 3.7-5.6 VLDL 29 mg/dL 2-29 LDL (Calc) 120 mg/dL High 20-99 69 Alt 16 U/L 3-42 Ast 18 U/L 8-42 Basic (BMP) 06/13/2015 [facility] Sodium 141 mmol/L 134-142 Potassium 4.4 mmol/L 3.5-5.2 Chloride 103 mmol/L 97-109 Carbon Dioxide 32 mmol/L 24-34 Glucose 86 mg/dL 70-105 BUN 22 mg/dL 6-26 Creatinine 0.8 mg/dL 0.5-1.4 Calcium 9.3 mg/dL 8.5-10.2 Anion Gap 10 mmol/L 6-14 Non Elizabeth Egfr >60 >60 70 Elizabeth Egfr >60 >60 71 Laboratory test 06/13/2015 [facility] Magnesium 2.1 mg/dL 1.5-2.7 finding Laboratory test 12/01/2014 [facility] Sgot/Ast 15 U/L 15-37 72 finding (315)- - SGPT/Alt 18 U/L 12-78 Vitamin D,25-Hydroxy 44.7 ng/mL 30.0-100.0 73 LDL Cholesterol 12/01/2014 [facility] Cholesterol 187 mg/ dL < 200 74 Profile (315)- - Triglycerides 125 mg/dL < 150 75 HDL Cholesterol 42 mg/dL > 40 76 LDL-Cholesterol 120 mg/dL < 100 77 Basic Metabolic Panel 12/01/2014 [facility] Glucose 86 mg /dL 74-106 (315)- - BUN 18 mg/dL 7-18 Creatinine 0.8 mg/dL 0.6-1.3 Glom Filtration Rate, Estimate >60 mL/min >60 If >60 mL/min >60 78 BUN/Creat 22.5 ratio Sodium 142 mmol/L 136-145 Potassium 4.4 mmol/L 3.5-5.1 Chloride 107 mmol/L 98-107 Carbon Dioxide 30 mmol/L 21-32 Anion Gap 9 mEq/L 8-16 Calcium 9.3 mg/dL 8.5-10.1 Laboratory test finding 09/06/2014 [facility] Import Culture Urine See Note 79 Lipid Panel 05/30/2014 [facility] Import Chol/HDL Ratio 4.9 ratio Cholesterol 227.0 mg/dL High 50.0-199.0 HDL 46.0 mg/dL 29.0-86.0 LDL, Calculated 148.6 mg/dL High 20.0-129.0 Triglycerides 162.0 mg/dL 30.0-249.0 vLDL 32.4 ng/dL Laboratory test finding 05/30/2014 [facility] Import Alt 19.0 U/L 9.0-52.0 Ast 19.0 [...] vLDL 31.8 ng/dL Laboratory test finding 11/29/2013 [facility] Import % Baso. 1.9 % 0.0-2.0 % Eos. 1.6 % 0.0-4.0 % Lymph 45 % High 20-44 % [place] 6.8 % 2.0-10.0 % Danielle 44 % Low 50-70 Absolute Baso. 0.1 K/ul 0.0-0.3 Absolute Eos. 0.1 K/ul 0.0-0.5 Absolute Lymph. 2.1 K/ul 0.8-4.8 Absolute [place]. 0.3 K/ul 0.1-1.0 Absolute Danielle. 2.01 K/ul [...] 7.3 fL 6.0-10.0 Magnesium 2.1 mg/dL 1.7-2.3 80 PLT 211 K/ul 140-440 Potasium 4.1 mmol/L 3.6-5.0 RBC 4.5 M/ul 4.2-6.3 RDW 11.2 % Low 11.5-14.5 Sodium 143.0 mmil/L 137.0-145.0 Vitamin D 54.1 ng/mL 30.0-100.0 WBC 4.5 K/ul 4.1-10.9 eGFR 75.4 1 CC: Dr Mesa Preop - sign ABN 2 Updated reference range on new analyzer 3 Updated reference range on new analyzer 4 Concerning GFR Guidelines for Americans: Normal function or mild renal disease, if clinically at risk: >/=60 mL/min Moderately decreased: 30-59 Severely decreased: 15-29 Renal failure: <15 There is reduced accuracy above 60ml/min/1.73 m squared, but the numeric value may be clinically useful in the near 60 range 5 Concerning GFR Guidelines: Normal function or mild renal disease, if clinically at risk: >/=60 mL/min Moderately decreased: 30-59 Severely decreased: 15-29 Renal failure: <15 There is reduced accuracy above 60ml/min/1.73 m squared, but the numeric value may be clinically useful in the near 60 range Glomerular Filtration Rate (GFR) is estimated based on the CKD-EPI equation, which assumes a steady state for [...] drugs that are excreted by the kidneys. 6 Updated Reference Range 7 Microbiology results SOURCE Clean Catch Midstream FINAL RESULT No growth 8 01/25 PRE-OV 9 Updated reference range on new analyzer 10 Updated reference range on new analyzer 11 Concerning GFR Guidelines: Normal function or mild [...] drugs that are excreted by the kidneys. 12 Concerning GFR Guidelines for Americans: Normal function or mild renal disease, if clinically at risk: >/=60 mL/min Moderately decreased: 30-59 Severely decreased: 15-29 Renal failure: <15 13 Updated Reference Range 14 Per NCEP ATP III Guidelines: Results lower than 40 mg/dL are suggestive of increased risk for coronary artery disease. Results > or=to 60 mg/dL are considered a negative risk factor. 15 Per NCEP ATP III Guidelines: Normal Population <130 Patients with medical conditions: CHD/DM Optimal: <100 Borderline high: 130-159 High: 160-189 Very high: >189 16 Clinical Guidelines for recommended serum 25(OH)Vitamin D Deficient at less than 20 ng/mL Insufficient at 20 to <30 ng/mL Sufficient at 30-100 ng/mL Toxicity at greater than 100 ng/mL 17 06/26 Updated reference range on new analyzer 19 Updated reference range on new analyzer 20 Concerning GFR Guidelines: Normal function or mild [...] drugs that are excreted by the kidneys. 21 Concerning GFR Guidelines for Americans: Normal function or mild renal disease, if clinically at risk: >/=60 mL/min Moderately decreased: 30-59 Severely decreased: 15-29 Renal failure: <15 22 Updated Reference Range 23 Per NCEP ATP III Guidelines: Results lower than 40 mg/dL are suggestive of increased risk for coronary artery disease. Results > or=to 60 mg/dL are considered a negative risk factor. 24 Per NCEP ATP III Guidelines: Normal Population <130 Patients with medical conditions: CHD/DM Optimal: <100 Borderline high: 130-159 High: 160-189 Very high: >189 25 outside order in pink folder 26 12/27 PRE- 27 Updated reference range on new analyzer 28 Updated reference range on new analyzer 29 Concerning GFR Guidelines: Normal function or mild [...] drugs that are excreted by the kidneys. 30 Concerning GFR Guidelines for Americans: Normal function or mild renal disease, if clinically at risk: >/=60 mL/min Moderately decreased: 30-59 Severely decreased: 15-29 Renal failure: <15 31 Updated Reference Range 32 Per NCEP ATP III Guidelines: Results lower than 40 mg/dL are suggestive of increased risk for coronary artery disease. Results > or=to 60 mg/dL are considered a negative risk factor. 33 Per NCEP ATP III Guidelines: Normal Population <130 Patients with medical conditions: CHD/DM Optimal: <100 Borderline high: 130-159 High: 160-189 Very high: >189 34 Clinical Guidelines for recommended serum 25(OH)Vitamin D Deficient at less than 20 ng/mL Insufficient at 20 to <30 ng/mL Sufficient at 30-100 ng/mL Toxicity at greater than 100 ng/mL 35 Updated reference range on new analyzer 36 Updated reference range on new analyzer 37 Concerning GFR Guidelines for Americans: Normal function or mild renal disease, if clinically at risk: >/=60 mL/min Moderately decreased: 30-59 Severely decreased: 15-29 Renal failure: <15 38 Concerning GFR Guidelines: Normal function or [...] that are excreted by the kidneys. 39 Updated reference range on new analyzer 40 Microbiology results SOURCE Clean Catch Midstream FINAL RESULT No growth 41 SPECIMEN DESCRIPTION STOOL SPECIAL REQUESTS NONE RESULT [...] Unless otherwise specified, testing performed by [facility] [address] [place] [address] 42 SPECIMEN DESCRIPTION STOOL SPECIAL REQUESTS NONE RESULT [...] Unless otherwise specified, testing performed by [facility] [address] [place] [address] 43 PERFORMED AT [address] [place] [address] Unless otherwise specified, testing performed by [facility] [address] [place] [address] 44 NOTE: IF REFLEX CULTURE FOR KLEBSIELLA OXYTOCA IS CLINICALLY INDICATED, PLEASE CONTACT THE [facility]OLOGY LAB[facility]ORY ([phone]) WITHIN 3 DAYS OF THIS REPORT. Unless otherwise specified, testing performed by [facility] [address] [place] [address] 45 SPECIMEN DESCRIPTION STOOL RESULT NEGATIVE FOR H. PYLORI ANTIGEN BY EIA REPORT STATUS FINAL 01/06/2017 Unless otherwise specified, testing performed by [facility] [address] [place] [id number] 12/26 preOV 47 Per NCEP ATP III Guidelines: Results lower than 40 mg/dL are suggestive of increased risk for coronary artery disease. Results > or=to 60 mg/dL are considered a negative risk factor. 48 Per NCEP ATP III Guidelines: Normal Population <130 Patients with medical conditions: CHD/DM Optimal: <100 Borderline high: 130-159 High: 160-189 Very high: >189 49 Concerning GFR Guidelines: Normal function or mild [...] drugs that are excreted by the kidneys. 50 Concerning GFR Guidelines for Americans: Normal function or mild renal disease, if clinically at risk: >/=60 mL/min Moderately decreased: 30-59 Severely decreased: 15-29 Renal failure: <15 51 06/24 preOV 52 Per NCEP ATP III Guidelines: [...] Severely decreased: 15-29 Renal failure: <15 56 2/16 preOV 57 Per NCEP ATP III Guidelines: Results lower than 40 mg/dL are suggestive of increased risk for coronary artery disease. Results > or=to 60 mg/dL are considered a negative risk factor. 58 Per NCEP ATP III Guidelines: Normal Population <130 Patients with medical conditions: CHD/DM Optimal: <100 Borderline high: 130-159 High: 160-189 Very high: >189 59 POSSIBLE UROGENITAL CONTAMINATION. 60 11/28/15 LAB.[email or web address] Deleted by Reflex Group [facility] 61 Organism 1 ! URETHRAL RAMA Quantity ! > 100,000 CFU/mL 62 Note: Persistent reduction for 3 months or more in an eGFR <60 mL/min/1.73 m2 defines CKD. Patients with eGFR values >/=60 mL/min/1.73 m2 may also have CKD if evidence of persistent proteinuria is present. The original MDRD equation for estimated GFR is not valid for patients less than 18 years of age. Additional information may be found at www.kdoqi.org. 63 Fastin hours 64 Concerning GFR Guidelines: Normal function or mild [...] drugs that are excreted by the kidneys. 65 Concerning GFR Guidelines for Americans: Normal function or mild renal disease, if clinically at risk: >/=60 mL/min Moderately decreased: 30-59 Severely decreased: 15-29 Renal failure: <15 66 Microbiology results SOURCE URINE COLONY COUNT 40,000 [...] TOBRAMYCIN <=4 S TRIMETHOPRIM/SULFAMETHOXAZ <=2/38 S S=Sensitive;I=Indeterminate;R=Resistant 67 06/23 preOV 68 Per NCEP ATP III Guidelines: Results lower than 40 mg/dL are suggestive of increased risk for coronary artery disease. Results > or=to 60 mg/dL are considered a negative risk factor. 69 Per NCEP ATP III Guidelines: Normal Population <130 Patients with medical conditions: CHD/DM Optimal: <100 Borderline high: 130-159 High: 160-189 Very high: >189 70 Concerning GFR Guidelines: Normal function or mild [...] drugs that are excreted by the kidneys. 71 Concerning GFR Guidelines for Americans: Normal function or mild renal disease, if clinically at risk: >/=60 mL/min Moderately decreased: 30-59 Severely decreased: 15-29 Renal failure: <15 72 has 12/18 Vitamin D deficiency has been defined by the Exline of Medicine and an Endocrine Society practice guideline as a level of serum 25-OH vitamin D less than 20 ng/mL (1,2). The Endocrine Society went on to further define vitamin D insufficiency as a level between 21 and 29 ng/mL (2). 1. IOM (Exline of Medicine). 2010. Dietary reference intakes for calcium and D. [place]: The National Academies Press. 2. Von SILVER, Jennifer BARRIOS, Opal CURRAN, et al. Evaluation, treatment, and prevention of vitamin D deficiency: an Endocrine Society clinical practice guideline. JCEM. 2010; 96(7):1911-30. Performed at: RN - [facility] [address] [id number] Loom Mechanic: Sonya Alberto MD, Phone: [phone] Reference Guidelines*: Desirable: ........... < 200 mg/dL Borderline High: ..... 200-239 mg/dL High: ................ >=240 mg/dL * The National Cholesterol Education Program (NCEP) 75 Reference Guidelines*: Normal: ............. < 150 mg/dL Borderline High: .... 150-199 mg/dL High: ............... 200-499 mg/dL Very High: .......... > 500 mg/dL * Source: National Cholesterol Education Program (NCEP) 76 Reference Guidelines*: Low HDL: ..... < 40 mg/dL Normal: ..... 40-60 mg/dL Desirable: ... > 60 mg/dL *The National Cholesterol Education Program(NCEP) 77 Reference Guidelines*: Optimal:........... <100 mg/dL Near Optimal....... 100-129 mg/dL Borderline High.... 130-159 mg/dL High............... 160-189 mg/dL Very High.......... >=190 mg/dL * Source: National Cholesterol Education Program (NCEP) 78 Note: Persistent reduction for 3 months or more in an eGFR <60 mL/min/1.73 m2 defines CKD. Patients with eGFR values >/=60 mL/min/1.73 m2 may also have CKD if evidence of persistent proteinuria is present. The original MDRD equation for estimated GFR is not valid for patients less than 18 years of age. Additional information may be found at www.kdoqi.org. 79 COLONY COUNT ! 10,000 - 20,000 CFU/ml Organism 1 ! MIXED URETHRAL RAMA 80 FASTING 11/22 preOV Procedures Date Code Description Status 04/12/2019 29911 Measure Blood Oxygen Level Single Determination Completed 12/02/2018 50083 Remove Impact Cerumen Irrigation/Lavage Completed 04/20/2018 [id number] Mammogram Completed 03/15/2018 [id number] Mammogram Completed 12/18/2017 23987 Measure Blood Oxygen Level Single Determination Completed 11/19/2017 [id number] Colonoscopy Completed 10/21/2017 42080 Remove Impact Cerumen Irrigation/Lavage Completed 07/01/2017 34898 Electrocardiogram Complete Completed 04/13/2017 [id number] Bone Mineral Density Test Completed 04/13/2017 29377 Bone Density Study (Dexa) Axial Skeleton Completed (Hips,Pelvis,Spine) 11/26/2015 13957 Measure Blood Oxygen Level Single Determination Completed 08/07/2015 99867 X-Ray Spine Cervical, 4 Or 5 Views Completed 06/20/2015 51614 Remove Skin Tags Up To 15 Completed 06/14/2015 56358 Measure Blood Oxygen Level Single Determination Completed 06/14/2015 37517 Measure Blood Oxygen Level Single Determination Completed 03/12/2015 99801 Bone Density Study (Dexa) Axial Skeleton Completed (Hips,Pelvis,Spine) 03/12/2015 75013 Old Bone Density Study (Dexa) Completed 03/12/2015 [id number] Bone Mineral Density Test Completed 03/12/2015 [id number] Mammogram Completed 02/12/2015 41827 Measure Blood Oxygen Level Single Determination Completed Encounters Type Date Location Provider Dx Diagnosis Office Visit 04/12/2019 [facility] Adeline Lawton PA J01.90 Acute sinusitis, 11:30a unspecified R60.0 Localized edema Z68.29 Body mass index (BMI) 29.0-29.9, adult Office Visit 03/07/2019 11:00a [facility] Edwin Morrow, M17.11 Unilateral primary MD osteoarthritis, RIGHT knee Z01.810 Encounter for preprocedural cardiovascular examination R94.31 Abnormal electrocardiogram [ECG] [EKG] K21.9 Gastro-esophageal reflux disease without esophagitis E78.00 Pure hypercholesterolemia, unspecified R03.0 Elevated blood-pressure reading, w/o diagnosis of htn M85.80 Oth disrd of bone density and structure, unspecified site Z68.28 Body mass index (BMI) 28.0-28.9, adult Office Visit 02/01/2019 4:45p Edwin Starks MD N39.0 Urinary tract infection, site not specified Z68.28 Body mass index (BMI) 28.0-28.9, adult Office Visit 01/26/2019 1:30p Edwin Starks MD Z00.00 Encntr for general adult medical exam w/o abnormal findings R03.0 [...] bursitis, LEFT hip Office Visit 08/24/2018 2:30p Greer Starks, 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, 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 Office Visit 07/16/2018 1:30p Edwin Starks, K21.9 Gastro- esophageal MD reflux disease without esophagitis R60.9 Edema, unspecified R03.0 Elevated blood-pressure reading, w/o diagnosis of htn M85.80 Oth disrd of bone density and structure, unspecified site E78.00 Pure hypercholesterolemia, unspecified M15.9 Polyosteoarthritis, 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, 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, recurrent, mild R53.83 Other fatigue 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 Z96.652 Presence of LEFT artificial knee joint M17.11 Unilateral primary osteoarthritis, RIGHT knee Z68.29 Body mass index (BMI) 29.0-29.9, adult Office Visit 04/20/2018 11:15a [facility] Edwin Morrow MD L03.211 Cellulitis of face Office Visit 03/12/2018 4:00p [facility] Adeline Lawton PA N64.4 Mastodynia Z68.29 Body mass index (BMI) 29.0-29.9, adult Office Visit 03/04/2018 9:45a [facility] Edwin Morrow, M25.579 Pain in unspecified MD ankle and joints of unspecified foot K21.9 Gastro-esophageal reflux disease without esophagitis Z68.29 Body mass index (BMI) 29.0-29.9, adult Office Visit 01/05/2018 1:30p [facility] Edwin Morrow, R03.0 Elevated blood-pressure MD reading, w/o diagnosis of htn E78.00 Pure hypercholesterolemia, unspecified M85.80 Ot disrd of bone density and structure, unspecified site M15.9 Polyosteoarthritis, unspecified K21.9 Gastro-esophageal reflux disease without esophagitis G60.9 Hereditary and idiopathic neuropathy, 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, recurrent, mild M51.36 Other intervertebral disc degeneration, lumbar region Office Visit 12/18/2017 2:00p [facility] Hannah Wilde MD J06.9 Acute upper respiratory infection, unspecified Office Visit 12/01/2017 10:45a [facility] Edwin Morrow, R10.13 Epigastric pain MD Office Visit 10/21/2017 10:45a [facility] Edwin Morrow, Z00.00 Encntr for general MD adult medical exam w/o abnormal findings H61.23 Impacted cerumen, bilateral A09 Infectious gastroenteritis and colitis, unspecified Z68.28 Body mass index (BMI) 28.0-28.9, adult Office Visit 09/29/2017 1:45p [facility] Greer Morrow, 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 R30.0 Dysuria Office Visit 08/13/2017 2:30p [facility] Adeline Lawton PA M54.5 Low back pain M79.671 Pain in RIGHT foot M79.672 Pain in LEFT foot Office Visit 08/10/2017 4:15p [facility] Adeline Lawton PA R19.7 Diarrhea, unspecified Office Visit 07/01/2017 1:00p [facility] Odalys M51.36 Other intervertebral MD Edwin disc degeneration, lumbar region Z01.810 Encounter for preprocedural cardiovascular examination R03.0 Elevated blood-pressure reading, w/o diagnosis of htn E78.00 Pure hypercholesterolemia, unspecified K21.9 Gastro-esophageal reflux disease without esophagitis G60.9 Hereditary and idiopathic neuropathy, unspecified M15.9 Polyosteoarthritis, unspecified R60.9 Edema, unspecified M85.80 Oth disrd of bone density and structure, unspecified site Office Visit 05/14/2017 9:45a [facility] Edwin Morrow M85.89 Oth disrd of bone MD density and structure, multiple sites Office Visit 02/26/2017 2:30p [facility] Reji Lockhart DO M51.36 Other intervertebral disc degeneration, lumbar region M48.06 Spinal stenosis, lumbar region Office Visit 12/31/2016 1:00p [facility] Edwin Morrow MD R10.13 Epigastric pain R03.0 Elevated blood-pressure reading, w/o diagnosis of htn E78.00 Pure hypercholesterolemia, unspecified M85.80 Oth disrd of bone density and structure, unspecified site M15.9 Polyosteoarthritis, unspecified M51.36 Other intervertebral disc degeneration, lumbar region F33.0 Major depressive disorder, recurrent, mild Office Visit 12/10/2016 4:30p [facility] Edwin Morrow, R10.13 Epigastric pain MD Office Visit 10/09/2016 8:30a [facility] Zehra Linares, HUGH H61.21 Impacted cerumen, RIGHT ear H68.001 Unspecified Eustachian salpingitis, RIGHT ear Office Visit 08/27/2016 11:00a [facility] Edwin Morrow MD Z00.00 Encntr for general adult medical exam w/o abnormal findings Z68.28 Body mass index (BMI) 28.0-28.9, adult F33.0 Major depressive disorder, recurrent, mild M51.36 Other intervertebral disc degeneration, lumbar region R03.0 Elevated blood-pressure reading, w/o diagnosis of htn M85.80 Oth disrd of bone density and structure, unspecified site Office Visit 06/30/2016 1:00p [facility] Edwin Morrow, A09 Infectious MD gastroenteritis and colitis, unspecified R03.0 Elevated blood-pressure reading, w/o diagnosis of htn K21.9 Gastro-esophageal reflux disease without esophagitis E78.0 Pure hypercholesterolemia M85.80 Oth disrd of bone density and structure, unspecified site M51.36 Other intervertebral disc degeneration, lumbar region F33.0 Major depressive disorder, recurrent, mild M15.9 Polyosteoarthritis, unspecified Office Visit 06/23/2016 11:15a [facility] Edwin Morrow, A09 Infectious MD [...] lumbar region Office Visit 02/11/2016 2:00p Edwin Starks, M51.36 Other intervertebral MD disc degeneration, lumbar region M47.22 Other spondylosis with radiculopathy, cervical region F33.0 Major depressive disorder, recurrent, mild Office Visit 12/24/2015 1:00p Edwin Starks, M51.36 Other intervertebral MD disc degeneration, lumbar region R03.0 Elevated blood-pressure reading, w/o diagnosis of htn K21.9 Gastro-esophageal reflux disease without esophagitis M15.9 Polyosteoarthritis, unspecified R60.9 Edema, 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, unspecified M85.80 Oth disrd of bone density and structure, unspecified site F33.0 Major depressive disorder, recurrent, mild Z79.899 Other long-term (current) drug therapy E78.0 Pure hypercholesterolemia Office Visit 11/30/2015 3:30p Edwin Starks MD R53.1 Weakness R11.0 Nausea M51.36 Other intervertebral disc degeneration, lumbar region Office Visit 11/28/2015 8:15a [facility] Edwin Morrow MD R53.1 Weakness R11.0 Nausea Office Visit 11/26/2015 9:30a [facility] Greer Morrow 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 R53.1 Weakness R53.83 Other fatigue Office Visit 10/11/2015 1:00p [facility] Zehra Linares PA R30.0 Dysuria M54.5 Low back pain Office Visit 09/07/2015 2:15p [facility] Edwin Morrow MD M54.2 Cervicalgia M47.22 Other spondylosis with radiculopathy, cervical region Office Visit 08/07/2015 3:30p [facility] Edwin Morrow MD M54.2 Cervicalgia R20.2 Paresthesia of skin Office Visit 07/26/2015 11:30a [facility] Zehra Linares, 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 Office Visit 06/20/2015 1:00p [facility] Odalys, 272.0 Hypercholesterolemia Pure MD Edwin 530.81 Esophageal Reflux 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 V43.65 Knee Replacement By Other Means V03.82 Streptococcus Pneumoniae Vaccination Spec Other 701.9 Hypertrophic & Atrophic Conditions Of Skin Unspec 733.90 Bone & Cartilage Disorder Unspec 782.3 Edema V76.10 Screening For Malignant Neoplasm Breast Office Visit 05/10/2015 11:15a [facility] Edwin Morrow, 380.4 Impacted Maureen MD Office Visit 02/12/2015 10:00a [facility] Hannah Wilde MD 466.0 Bronchitis Acute Office Visit 12/20/2014 3:00p [facility] Edwin Morrow, V43.65 Knee Replacement By MD Other Means 300.00 Anxiety State Unspec 530.81 Esophageal Reflux 272.0 Hypercholesterolemia Pure 796.2 Blood Pressure Reading Elevated W/O Hypertension 715.00 Osteoarthrosis Generalized Site Unspec V58.69 Medications Electronic Prepress Technician (Current) Use Encounter Plan of Treatment Future Appointment(s):07/19/2019 8:20 am - Schedule, Laboratory at [facility]2018 1:00 pm - Edwin Morrow MD at [facility]04/19/2019 - Edwin Morrow MDT50.B95A Adverse reaction to viral vaccinesNew Medication:Cephalexin 250 mg - 1 pill by mouth 3 times a day for 5 daysFollow up:Follow up as [id number] Unilateral primary osteoarthritis, RIGHT kneeNew Medication:Wheeled Walker W/ Seat, Brakes - Dx: end stage r knee osteoarthritis
--- OUTSIDE RECORDS SUMMARY | 2019-04-28 05:40 | XMS REPORT | Continuity of Care Document ---
:1940 External Reference #:[id number] Author Name Adeline Lawton PA Address [address] [place] [address] Care Team Providers Name Role Phone Edwin Morrow MD Care Team Information Solids Control Technician Unavailable Payers Date Identification Numbers Payment Provider Subscriber Effective: 2005 Policy Number: [id number] Medicare Part B Yuliya Card PayID: [id number] [address] [place] [address] Policy Number: [id number] [facility] Options Yuliya Card PayID: [id number] [address] [place] [address] Problems Active Problems Provider Date Anxiety state [...] Medications SIG Qnty Indications Ordering Date Provider Furosemide 1 by mouth every 30tabs R60.0 Spencer Madden, 04/12/2019 20mg Tablets day as needed DO for edema Azithromycin 2 tablets by 6tabs J01.90 Spencer Madden, 04/12/2019 250mg mouth on day 1 DO Tablets then 1 tablet on days 2-5 Fish Oil [place]-3 1 by mouth every E78.00 Odalys, 03/04/2018 1000mg day otc MD Edwin Capsules Fluticasone 1-2 sprays to 15.800ml J06.9 Wilde, 12/18/2017 Propionate each nostril MD Hannah 50mcg/Act daily as needed Suspension Multivitamin Adults 1 by mouth every 90tabs Odalys, 05/14/2017 50+ day MD Edwin Adlt 50+ Tablets Alendronate Sodium take 1 tablet 12tabs M85.89 Odalys, 05/14/2017 70mg every week in MD Edwin Tablets the morning - take with 8oz water and remain upright and nothing by mouth for 30 minutes M85.80 Acetaminophen ER 2 by mouth twice otc M51.36 Edwin Morrow, 2016 650mg a day as needed Tablets ER for pain Calcium Carbonate 2 po bid prn M85.80 Edwin Morrow J Antacid 500mg Chewtabs Vitamin E One by mouth Unknown 600Unit Capsules daily History Medications Lorazepam 1 by mouth 1 1tabs Odalys, [...] Ranitidine 150 1 by mouth 30tabs R10.10 Odalys, 08/24/2018 - Maximum Strength twice a day as LINWOOD Butterfield 01/26/2019 150mg needed Tablets Azithromycin 2 pills by 6tabs L03.211 Odalys, 04/20/2018 - 250mg mouth day 1, MD Edwin 04/30/2018 Tablets then 1 pill once daily for 4 more days (take w/ food) Ciprofloxacin HCL 1 by mouth 10tabs R30.0 Digiovanmarie, 09/29/2017 - 250mg twice a day for GreerLINWOOD rudolph 10/04/2017 Tablets 5 days Tizanidine HCL 1 by mouth at 14tabs M54.5 Spencer Madden DO 08/13/2017 - 2mg bedtime 09/29/2017 Tablets Lorazepam 1 by mouth 1 1tabs Odalys, 03/03/2017 - 1mg Tablets hour pre-mri MD Edwin 03/10/2017 Dexamethasone 4 po q d x 3 QS M48.06 Reji Lockhart, 02/26/2017 - 0.5mg days then 3 po DO 05/14/2017 Tablets q d x 3 days then 2 po q d x 3 then 3 days then 1 po q d x 3 days then stop Duloxetine HCL take one 90caps M51.36 Odalys, 02/26/2017 - 30mg capsule by MD Edwin 01/05/[address] José hanks every day G60.9 F33.0 Azelastine HCL spray 1 spray in 30ml H68.001 Spencer Madden, 10/09/2016 - (Nasal) each nostril two DO 07/01/2017 0.15% times a day Solution Frye Colon one daily or use Odalys, 08/27/2016 - Health align daily both MD [...] Morrow 10/17/2014 - 3 times a day yordy Dorantes MD 02/12/2015 10mg Tablets needed for anxiety, and 2 at bedtime if needed for sleep Omeprazole Take Two 180caps K21.9 Odalys, 10/31/2011 - 20mg Capsules By MD Edwin 08/24/[address] Hanks Every Morning R10.13 [place] 50 3PO qd E78.0 Edwin Morrow 10/09/2008 - 1000mg J 08/24/2018 Capsules Glucosamine 1 po qd Unknown [...] Code Status Date Vaccine Reaction Lot # 66460 Given 01/28/2019 Shingrix (Shingles) Zoster Vaccine HZV, KINNEYS Recombinant, Subunit, Adj 05943 Given 06/20/2015 Prevnar 13 Pneumococal Conjugate Vaccine [id number] 46612 Given 06/02/2012 Tdap (Adacel) Ages 7 And Above Only 36621 Given 10/09/2008 Pneumococcal 23 Immunization Adult Or Immunosuppressed Patient 82006 Given 10/09/2008 Pneumococcal 23 Immunization Adult Or Immunosuppressed Patient 13173 Given 10/04/2007 Zoster (Zostavax) 88970 Refused 07/16/2018 Fluzone Highdose Age 65 And Over Preservative & Antibiotic Free 71154 Refused 09/29/2017 Influenza Vac, Quadrivalent, Split, 0.5mL Dosage, [id number] Im Use Vital Signs Date Vital Result Comment 04/12/2019 11:28am Body Temperature 97.9 F Weight [...] 5-15 6 CBC with Auto Diff-fcmg 03/07/2019 [facility] WBC 5.1 K/uL 4.1-11.0 RBC 4.28 M/uL [...] Basophils 0.0 K/uL 0.0-0.3 Laboratory test 02/01/2019 [facility] Urine Culture Microbiology res 7 finding <SEE NOTE> Basic (BMP) 01/19/2019 [facility] Sodium 145 mmol/L 135-146 8, 9 Potassium 3.8 mmol/L 3.5-5.2 Chloride# 106 mmol/L 97-110 10 Carbon Dioxide 30 mmol/L 24-34 Glucose 89 mg/dL 70-105 BUN 15 mg/dL 6-26 Creatinine 0.7 mg/dL 0.5-1.4 Calcium 8.8 mg/dL 8.5-10.2 Non Elizabeth Egfr >60 >60 11 Elizabeth Egfr >60 >60 12 Anion Gap 9 mmol/L 5-15 13 Lipid Treatment 01/19/2019 [facility] Cholesterol 204 mg/dL High 50-199 Triglycerides 231 mg/dL High 30-200 HDL 39 mg/dL 35-85 14 Chol/ HDL Ratio 5.3 ratio 3.7-5.6 VLDL 46 mg/dL High 2-29 LDL (Calc) 119 mg/dL High 20-99 15 Alt 12 U/L 3-42 Ast 16 U/L 8-42 Laboratory test finding 01/19/2019 [facility] Vitamin D 25 Hydroxy 32 ng/mL 30-100 [...] (BMP) 12/29/2017 [facility] Sodium 144 mmol/L 135-146 26, 27 Potassium 4.3 mmol/L 3.5-5.2 Chloride# 104 mmol/L 97-110 28 Carbon Dioxide 32 mmol/L 24-34 Glucose 87 mg/dL 70-105 BUN 17 mg/dL 6-26 Creatinine 0.8 mg/dL 0.5-1.4 Calcium 9.3 mg/dL 8.5-10.2 Non Elizabeth Egfr >60 >60 29 Elizabeth Egfr >60 >60 30 Anion Gap 8 mmol/L 5-15 31 Lipid Treatment 12/29/2017 [facility] Cholesterol 216 mg/dL High 50-199 Triglycerides 245 [...] Low 7-16 39 Laboratory test finding 12/01/2017 [facility] Amylase 33 U/L 29-103 Lipase 6 U/L Low 11-82 Laboratory test 09/29/2017 [facility] Urine Culture Microbiology res 40 finding <SEE NOTE> Laboratory test 09/14/2017 [facility] [...] mg/dL 20-99 53 Hepatic Panel (LFT) 06/16/2016 [facility] Total Protein 6.3 g/dL 6.0-8.0 Albumin 3.8 g/dL 3.6-4.9 Total Bilirubin 0.4 mg/dL 0.1-1.3 Direct Bilirubin 0.1 mg/dL 0.0-0.4 Alkaline Phosphatase 73 U/L 24-140 Alt 12 U/L 3-42 Ast 16 U/L 8-42 CBC With Auto Diff 06/16/2016 [facility] WBC 5.1 K/uL 4.1-11.0 RBC 4.37 M/uL [...] 91 mg/dL 20-99 58 Urinalysis With 11/28/2015 [facility] Urine Color YELLOW Yellow Microscopic (315)- - Urine Clarity CLEAR Clear Urine Glucose - Dipstick NEGATIVE mg/dL Negative Urine Bilirubin - Dipstick NEGATIVE Negative Urine Ketone 15 mg/dL High Negative Urine Specific Reliance 1.010 1.010-1.030 Urine Blood NEGATIVE Negative Urine [...] Urine Mucus SMALL NONESEEN Urine Screen 11/28/2015 [facility] Ua RFX Micro See Note 60 (315)- - + Culture II Urine Culture 11/28/2015 [facility] Urine Culture See Note 61 (315)- - Comprehensive 11/28/2015 [facility] Glucose 107 mg/dL High 74-106 Metabolic Panel [...] Alkaline Phosphatase 85 U/L 45-117 CBC 11/28/2015 [facility] White Blood Count 6.2 K/uL 3.1-10.7 (315)- [...] Volume 11.9 fL 8.9-12.4 Basic (BMP) 11/26/2015 [facility] Sodium 135 mmol/L 134-142 63 Potassium 4.8 mmol/L 3.5-5.2 Chloride 99 mmol/L 97-109 Carbon Dioxide 30 mmol/L 24-34 Glucose 108 mg/dL High 70-105 BUN 16 mg/dL 6-26 Creatinine 0.9 mg/dL 0.5-1.4 Calcium 9.6 mg/dL 8.5-10.2 Anion Gap 11 mmol/L 6-14 Non Elizabeth Egfr >60 >60 64 Elizabeth Egfr >60 >60 65 CBC With Auto Diff 11/26/2015 [facility] WBC [...] 66 finding <SEE NOTE> Lipid Treatment 06/13/2015 [facility] Cholesterol 197 mg/dL 50-199 67 Triglycerides 145 mg/dL 30-200 HDL 48 mg/dL 35-85 68 Chol/ HDL Ratio 4.1 ratio 3.7-5.6 VLDL 29 mg/dL 2-29 LDL (Calc) 120 mg/dL High 20-99 69 Alt 16 U/L 3-42 Ast 18 U/L 8-42 Basic (BMP) 06/13/2015 [facility] Sodium 141 mmol/L 134-142 Potassium 4.4 mmol/L 3.5-5.2 Chloride 103 mmol/L 97-109 Carbon Dioxide 32 mmol/L 24-34 Glucose 86 mg/dL 70-105 BUN 22 mg/dL 6-26 Creatinine 0.8 mg/dL 0.5-1.4 Calcium 9.3 mg/dL 8.5-10.2 Anion Gap 10 mmol/L 6-14 Non Elizabeth Egfr >60 >60 70 Elizabeth Egfr >60 >60 71 Laboratory test 06/13/2015 [facility] Magnesium 2.1 mg/dL 1.5-2.7 finding Laboratory test 12/01/2014 [facility] Sgot/Ast 15 U/L 15-37 72 finding (315)- - SGPT/Alt 18 U/L 12-78 Vitamin D,25-Hydroxy 44.7 ng/mL 30.0-100.0 73 LDL Cholesterol 12/01/2014 [facility] Cholesterol 187 mg/ dL < 200 74 Profile (315)- - Triglycerides 125 mg/dL < 150 75 HDL Cholesterol 42 mg/dL > 40 76 LDL-Cholesterol 120 mg/dL < 100 77 Basic Metabolic Panel 12/01/2014 [facility] Glucose 86 mg /dL 74-106 [...] 09/06/2014 [facility] Import Culture Urine See Note 79 Lipid Panel 05/30/2014 [facility] Chol/HDL Ratio 4.9 ratio Cholesterol 227.0 mg/dL High 50.0-199.0 HDL 46.0 mg/dL 29.0-86.0 LDL, Calculated 148.6 mg/dL High 20.0-129.0 Triglycerides 162.0 mg/dL 30.0-249.0 vLDL 32.4 ng/dL Laboratory test finding 05/30/2014 [facility] [employer] [facility] Alt 19.0 U/L 9.0-52.0 Ast 19.0 U/L 14.0-36.0 BUN 22.0 mg/dL High 7.0-18.0 BUN/Creat Ratio 27.5 ratio High 12.0-20.0 Calcium 9.1 mg/dL 8.7-10.5 Chloride 107.0 mmol/L 98.0-107.0 Co2 28.0 mmol/L 22.0-30.0 Creatinine-Serum 0.8 mg/dL 0.7-1.2 Glucose 94.0 mg/dL 75.0-110.0 Potasium 4.2 mmol/L 3.6-5.0 Sodium 143.0 mmil/L 137.0-145.0 eGFR 75.2 Lipid Panel 11/29/2013 [facility] [employer] Chol/HDL Ratio 5.1 ratio Cholesterol 200.0 mg/dL High 50.0-199.0 HDL 39.0 mg/dL 29.0-86.0 LDL, Calculated 129.2 mg/dL High 20.0-129.0 Triglycerides 159.0 mg/dL 30.0-249.0 vLDL 31.8 ng/dL Laboratory test finding 11/29/2013 [facility] [employer] Import % Baso. 1.9 % 0.0-2.0 % Eos. 1.6 % 0.0-4.0 % Lymph 45 % High 20-44 % Thomas 6.8 % 2.0-10.0 % Danielle 44 % Low 50-70 Absolute Baso. 0.1 K/ul 0.0-0.3 Absolute Eos. 0.1 K/ul 0.0-0.5 Absolute Lymph. 2.1 K/ul 0.8-4.8 Absolute Thomas. 0.3 K/ul 0.1-1.0 Absolute Danielle. 2.01 K/ul [...] at greater than 100 ng/mL 17 06/26 preOV 18 Updated reference range on new analyzer 19 [...] outside order in pink folder 26 12/27 PRE-OV 27 Updated reference range on new analyzer [...] Unless otherwise specified, testing performed by [facility] [address] [place] [address] 42 SPECIMEN DESCRIPTION STOOL SPECIAL REQUESTS NONE [...] Unless otherwise specified, testing performed by [facility] [address] [place] [address] 43 PERFORMED AT [address] [place] [address] Unless otherwise specified, testing performed by [facility] [address] [place] [address] 44 NOTE: IF REFLEX CULTURE FOR KLEBSIELLA OXYTOCA IS CLINICALLY INDICATED, PLEASE CONTACT THE [facility]OLOGY LABORATORY ([phone]) WITHIN 3 DAYS OF THIS REPORT. Unless otherwise specified, testing performed by [facility] [address] [place] [address] 45 SPECIMEN DESCRIPTION STOOL RESULT NEGATIVE FOR H. PYLORI ANTIGEN BY EIA REPORT STATUS FINAL 01/06/2017 Unless otherwise specified, testing performed by [facility] [address] [place] [address] 46 12/26 preOV 47 Per NCEP ATP [...] Severely decreased: 15-29 Renal failure: <15 56 12/25 preOV 57 Per NCEP ATP III Guidelines: [...] 15-29 Renal failure: <15 72 has 12/18 73 Vitamin D deficiency has been defined by the Lawn of Medicine and an Endocrine Society practice guideline as a level of serum 25-OH vitamin D less than 20 ng/mL (1,2). The Endocrine Society went on to further define vitamin D insufficiency as a level between 21 and 29 ng/mL (2). 1. IOM ([place] of Medicine). 2010. Dietary reference intakes for calcium and D. [place]: The National Academies Press. 2. Von MF, Jennifer NC, Opal CURRAN, et al. Evaluation, treatment, and prevention of vitamin D deficiency: an Endocrine Society clinical practice guideline. JCEM. 2010; 96(7):1911-30. Performed at: RN - [facility] [address] [id number] Latin Teacher: Sonya Alberto MD, Phone: [phone] Reference Guidelines*: Desirable: ........... < 200 [...] preOV Procedures Date Code Description Status 04/12/2019 19515 Measure Blood Oxygen Level Single Determination Completed 12/02/2018 60325 Remove Impact Cerumen Irrigation/Lavage Completed 04/20/2018 [id number] Mammogram Completed 03/15/2018 06275745 Mammogram Completed 12/18/2017 62400 Measure Blood Oxygen Level Single Determination Completed 11/19/2017 23035010 Colonoscopy Completed 10/21/2017 19206 Remove Impact Cerumen Irrigation/Lavage Completed 07/01/2017 60440 Electrocardiogram Complete Completed 04/13/2017 [id number] Bone Mineral Density Test Completed 04/13/2017 03846 Bone Density Study (Dexa) Axial Skeleton Completed (Hips,Pelvis,Spine) 11/26/2015 06344 Measure Blood Oxygen Level Single Determination Completed 08/07/2015 57521 X-Ray Spine Cervical, 4 Or 5 Views Completed 06/20/2015 72696 Remove Skin Tags Up To 15 Completed 06/14/2015 14947 Measure Blood Oxygen Level Single Determination Completed 06/14/2015 53837 Measure Blood Oxygen Level Single Determination Completed 03/12/2015 38763 Bone Density Study (Dexa) Axial Skeleton Completed (Hips,Pelvis,Spine) 03/12/2015 61003 Old Bone Density Study (Dexa) Completed 03/12/2015 258982821 Bone Mineral Density Test Completed 03/12/2015 49950692 Mammogram Completed 02/12/2015 42648 Measure Blood Oxygen Level Single Determination Completed Encounters Type Date Location Provider Dx Diagnosis Office Visit 03/07/2019 [facility] Odalys, 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, RIGHT knee Z01.810 Encounter for preprocedural [...] (BMI) 28.0-28.9, adult Office Visit 01/26/2019 1:30p [facility] Edwin Morrow MD Z00.00 Encntr for [...] (BMI) 28.0-28.9, adult Office Visit 12/28/2018 11:15a [facility] Edwin Morrow MD M54.5 Low back pain M70.62 Trochanteric bursitis, LEFT hip Office Visit 08/24/2018 2:30p [facility] Greer Morrow, 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, 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 Office Visit 07/16/2018 1:30p [facility] Edwin Morrow, K21.9 Gastro- esophageal MD [...] (BMI) 29.0-29.9, adult Office Visit 04/20/2018 11:15a [facility] Edwin Morrow MD L03.211 Cellulitis of face Office Visit 03/12/2018 4:00p [facility] Adeline Lawton PA N64.4 Mastodynia Z68.29 Body mass index (BMI) 29.0-29.9, adult Office Visit 03/04/2018 9:45a [facility] Edwin Morrow, M25.579 Pain in unspecified MD ankle and joints of unspecified foot K21.9 Gastro-esophageal reflux disease without esophagitis Z68.29 Body mass index (BMI) 29.0-29.9, adult Office Visit 01/05/2018 1:30p [facility] Edwin Morrow, R03.0 Elevated blood-pressure MD reading, w/o diagnosis of htn E78.00 Pure hypercholesterolemia, unspecified M85.80 Oth disrd of bone density and structure, unspecified site M15.9 Polyosteoarthritis, unspecified K21.9 Gastro-esophageal reflux disease without esophagitis G60.9 Hereditary and idiopathic neuropathy, 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, recurrent, mild M51.36 Other intervertebral disc degeneration, lumbar region Office Visit 12/18/2017 2:00p [facility] Hannah Wilde MD J06.9 Acute upper respiratory infection, unspecified Office Visit 12/01/2017 10:45a [facility] Edwin Morrow, R10.13 Epigastric pain MD Office Visit 10/21/2017 10:45a [facility] Edwin Morrow, Z00.00 Encntr for general MD adult medical exam w/o abnormal findings H61.23 Impacted cerumen, bilateral A09 Infectious gastroenteritis and colitis, unspecified Z68.28 Body mass index (BMI) 28.0-28.9, adult Office Visit 09/29/2017 1:45p [facility] Greer Morrow, URBAN GARDENING SPECIALIST R30.0 Dysuria Office Visit 08/13/2017 2:30p [facility] Adeline Lawton PA M54.5 Low back pain M79.671 Pain in RIGHT foot M79.672 Pain in LEFT foot Office Visit 08/10/2017 4:15p [facility] Adeline Lawton PA R19.7 Diarrhea, unspecified Office Visit 07/01/2017 1:00p [facility] Odalys M51.36 Other intervertebral MD Edwin disc degeneration, lumbar region Z01.810 Encounter for preprocedural cardiovascular examination R03.0 Elevated blood-pressure reading, w/o diagnosis of htn E78.00 Pure hypercholesterolemia, unspecified K21.9 Gastro-esophageal reflux disease without esophagitis G60.9 Hereditary and idiopathic neuropathy, unspecified M15.9 Polyosteoarthritis, unspecified R60.9 Edema, unspecified M85.80 Oth disrd of bone density and structure, unspecified site Office Visit 05/14/2017 9:45a [facility] Edwin Morrow M85.89 Oth disrd of bone MD density and structure, multiple sites Office Visit 02/26/2017 2:30p [facility] Reji Lockhart DO M51.36 Other intervertebral disc degeneration, lumbar region M48.06 Spinal stenosis, lumbar region Office Visit 12/31/2016 1:00p [facility] Edwin Morrow MD R10.13 Epigastric pain R03.0 Elevated blood-pressure reading, w/o diagnosis of htn E78.00 Pure hypercholesterolemia, unspecified M85.80 Oth disrd of bone density and structure, unspecified site M15.9 Polyosteoarthritis, unspecified M51.36 Other intervertebral disc degeneration, lumbar region F33.0 Major depressive disorder, recurrent, mild Office Visit 12/10/2016 4:30p [facility] Edwin Morrow, R10.13 Epigastric pain MD Office Visit 10/09/2016 8:30a [facility] Zehra Linares PA H61.21 Impacted cerumen, RIGHT ear H68.001 Unspecified Eustachian salpingitis, RIGHT ear Office Visit 08/27/2016 11:00a [facility] Edwin Morrow MD Z00.00 Encntr for general adult medical exam w/o abnormal findings Z68.28 Body mass index (BMI) 28.0-28.9, adult F33.0 Major depressive disorder, recurrent, mild M51.36 Other intervertebral disc degeneration, lumbar region R03.0 Elevated blood-pressure reading, w/o diagnosis of htn M85.80 Oth disrd of bone density and structure, unspecified site Office Visit 06/30/2016 1:00p [facility] Edwin Morrow, Carrie9 Infectious MD gastroenteritis and colitis, unspecified R03.0 Elevated blood-pressure reading, w/o diagnosis of htn K21.9 Gastro-esophageal reflux disease without esophagitis E78.0 Pure hypercholesterolemia M85.80 Oth disrd of bone density and structure, unspecified site M51.36 Other intervertebral disc degeneration, lumbar region F33.0 Major depressive disorder, recurrent, mild M15.9 Polyosteoarthritis, unspecified Office Visit 06/23/2016 11:15a [facility] Edwin Morrow A09 Infectious MD gastroenteritis and colitis, unspecified Office Visit 06/04/2016 11:15a [facility] Edwin Morrow, R21 Rash and other MD nonspecific skin eruption R53.1 Weakness M54.2 Cervicalgia Office Visit 04/29/2016 9:45a Edwin Starks MD R60.9 Edema, unspecified M51.36 Other intervertebral disc degeneration, lumbar region Office Visit 02/19/2016 9:00a [facility] Edwin Morrow MD K62.5 Hemorrhage of anus and rectum M51.36 Other intervertebral disc degeneration, lumbar region Office Visit 02/11/2016 2:00p [facility] Edwin Morrow M51.36 Other intervertebral MD disc degeneration, lumbar region M47.22 Other spondylosis with radiculopathy, cervical region F33.0 Major depressive disorder, recurrent, mild Office Visit 12/24/2015 1:00p [facility] Edwin Morrow M51.36 Other intervertebral MD disc degeneration, lumbar region R03.0 Elevated blood-pressure reading, w/o diagnosis of htn K21.9 Gastro-esophageal reflux disease without esophagitis M15.9 Polyosteoarthritis, unspecified R60.9 Edema, 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, unspecified M85.80 Oth disrd of bone density and structure, unspecified site F33.0 Major depressive disorder, recurrent, mild 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 E78.0 Pure hypercholesterolemia Office Visit 11/30/2015 3:30p Edwin Starks MD R53.1 Weakness R11.0 Nausea M51.36 Other intervertebral disc degeneration, lumbar region Office Visit 11/28/2015 8:15a Edwin Starks MD R53.1 Weakness R11.0 Nausea Office Visit 11/26/2015 9:30a [facility] Greer Morrow [employer] G[employer] SPECIALIST R53.1 Weakness R53.83 Other fatigue Office Visit 10/11/2015 1:00p [facility] Zehra Linares PA R30.0 Dysuria M54.5 Low back pain Office Visit 09/07/2015 2:15p Edwin Starks MD M54.2 Cervicalgia M47.22 Other spondylosis with radiculopathy, cervical region Office Visit 08/07/2015 3:30p Edwin Starks MD M54.2 Cervicalgia R20.2 Paresthesia of skin Office Visit 07/26/2015 11:30a [facility] Zehra Linares, 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 Office Visit 06/20/2015 1:00p [facility] Odalys, 272.0 Hypercholesterolemia Pure MD Edwin 530.81 Esophageal Reflux 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 V43.65 Knee Replacement By Other Means V03.82 Streptococcus Pneumoniae Vaccination Spec Other 701.9 Hypertrophic & Atrophic Conditions Of Skin Unspec 733.90 Bone & Cartilage Disorder Unspec 782.3 Edema V76.10 Screening For Malignant Neoplasm Breast Office Visit 05/10/2015 11:15a [facility] Edwin Morrow, 380.4 Impacted Maureen MD Office Visit 02/12/2015 10:00a [facility] Hannah Wilde MD 466.0 Bronchitis Acute Office Visit 12/20/2014 3:00p [facility] Edwin Morrow, V43.65 Knee Replacement By MD Other Means 300.00 Anxiety State Unspec 530.81 Esophageal Reflux 272.0 Hypercholesterolemia Pure 796.2 Blood Pressure Reading Elevated W/O Hypertension 715.00 Osteoarthrosis Generalized Site Unspec V58.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 Encounter Plan of Treatment Future Appointment(s):07/19/2019 8:20 am - Schedule, Laboratory at [facility]2018 1:00 pm - Edwin Morrow MD at [facility]04/12/2019 - Adeline Lawton, PAJ01.90 Acute sinusitis, unspecifiedNew Medication:Azithromycin 250 mg - 2 tablets by mouth on day 1 then 1 tablet on days 2-5Comments:Will treat with zithromaxFluticasonePush fluidsCall with worsening/persisting symptomsFollow up: PrnR60.0 Localized edemaNew Medication:Furosemide 20 mg - 1 by mouth every day as needed for edemaComments:Will give furosemide to try prnAdvised low salt, keep legs elevatedCall with worsening/persisting edema, chest pain, palpitations , SOBZ68.29 Body mass index (BMI) 29.0-29.9, adult
--- OUTSIDE RECORDS SUMMARY | 2019-04-28 05:40 | XMS REPORT | Continuity of Care Document ---
:1940 External Reference #:[id number] Author Name HUGH Montgomery Address [address] , [place] [address] Care Team Providers Name Role Phone Edwin Fish MD Primary Care Physician Unavailable Payers Date Identification Numbers Payment Provider Subscriber Policy Number: [id number] Medicare Yuliya Madrid PayID: [id number] [address] [place] [address] Expires: 2018 Policy Number: [id number] Medicare Yuliya Madrid PayID: [id number] [facility] [place] [address] Policy Number: [id number] [facility] Yuliya Madrid PayID: [id number] [address] [place] [address] Problems Active Problems Provider Date Localized, primary [...] Unknown Never Smoked Cigarettes Smoking Status Reviewed: 03/16/19 Never Smoked Cigarettes ETOH Use Denies alcohol use Tobacco Use Start: Unknown Patient has never smoked Recreational Drug Use Denies Drug Use Exercise Type/Frequency Exercises regularly kontoblick classes , 2 x week. Some walking. [...] one hour prior Capsules to dental work [place] 3 3 tabs daily Unknown 1000mg Capsules Glucosamine Unknown Chondroitin 1500 Complex 1500Com Capsules Arthritis Pain Relief 2 tabs by mouth Unknown twice a day 650mg Tablets ER Vitamin C ER 1 by mouth every Unknown 500mg day Capsules ER Cranberry Extract Unknown 200mg Capsules Calcium Carbonate 2 [id number] Unknown Antacid 500mg Chewtabs Multivitamin Adults once daily Unknown Tablets Co-Q 10 [place]-3 Fish daily Unknown Oil [place]-3 Capsules Alendronate Sodium weekly Digiovanmarie, 70mg MD Edwin Tablets Metamucil as needed Unknown History Medications Omeprazole 1 by mouth daily Edwin Fish, - 20mg Capsules DR CAMPOVERDE 03/08/2019 Multivitamin Unknown - 02/08/2019 [place] 3 Unknown - 09/05/2018 Calcium + D [...] Injection Vital Signs Date Vital Result Comment 03/16/2019 8:07am Height 60 inches 5'0" Weight [...] Test Result H/L Range Note Inr/Protime 03/09/2019 [facility] Inr 0.95 N 0.82-1.09 1, [address] [place] [address] [phone] Laboratory test 03/09/2019 [facility] Partial 28.8 seconds N 26.0-36.[address] [place] [address] PTT [phone] Type & Screen 03/09/2019 [facility] Patient Blood O Positive [address] [place] [address] [phone] Antibody Screen NEGATIVE Urinalysis Profile 03/09/2019 [facility] Urine Color Yellow [address] [place] [address] [phone] Urine Appearance Cloudy Urine Specific [place] 1.015 N 1.010-1.030 Urine pH 7.0 N [...] Present Abnormal Absent Urine Culture And 03/09/2019 [facility] Urine Culture SEE RESULT [address] [place] [address] [phone] 1 PAIN IN RIGHT KNEE, EFFUSION, RIGHT KNEE, UNILATER 2 Standard intensity warfarin therapeutic range: 2.0-3.0 High intensity warfarin therapeutic range: 2.5-3.5 3 *Ascorbic acid is present which may interfere with detection of blood. 4 SEE RESULT BELOW Name: YULIYA MADRID : [address]: Carla Mesa MD Acct: [id number] Unit: [id number] AGE: 78 Location: PAT Re03/09/19 SEX: F Status: REG REF SPEC: [id number] FIORDALIZA: 03/09/19-[address] [facility] [address]: Carla Mesa MD REQ: [id number] RECD: 03/09/19 STATUS: NIKI CHAMPION DR: Edwin Fish Jr, MD _ SOURCE: URINE SPDESC: ORDERED: Urine Culture QUERIES: Urine Source: Clean Catch Procedure Result Reported Site Urine Culture Final 03/10/19- 1204 ML No Growth (<1,000 CFU/mL) * ML - Main Lab . END OF REPORT DEPARTMENT OF PATHOLOGY, [address] [place] [address] Landen Pittman M.D. Director [facility] # [id number] Procedures Date Code Description Status 03/18/2019 29686 Stress Test Completed 03/18/2019 86257 Myocardial Perfusion Imaging Tomographic (Spect) Multiple Completed Studies 03/16/2019 55053 EKG Tracing & Interpretation Completed Encounters Type Date Location Provider Dx Diagnosis Office Visit 03/16/2019 [facility] David Jackson R94.31 Abnormal 8:30a Of Jennifer Rowland M.D. electrocardiogram [ECG] [EKG] Z01.810 Encounter for preprocedural cardiovascular examination I10 Essential (primary) hypertension M17.11 Unilateral primary osteoarthritis, right knee Office Visit 01/26/2019 9:30a [facility] [place], M25.561 Pain in right [facility] [...] prosthesis, init encntr Plan of Treatment Future Appointment(s):04/28/2019 8:15 am - CHANEL Randall at [facility].04/28/2019 8:15 am - CHANEL Lance at [facility].A.04/18/2019 9:30 am - Carla Mesa M.D. at [facility].A.04/28/2019 8:15 am - Carla Mesa M.D. at [facility]03/16/2019 - David Rowland M.D.R94.31 Abnormal electrocardiogram [ECG] [EKG]Follow up:only if stress test is ojdwqxzdT18.810 Encounter for preprocedural cardiovascular [id number] Essential (primary) afkwwlrqofjkA27.11 Unilateral primary osteoarthritis, right knee
[2019-04-28] MEDS ORDERED: celeCOXIB CAP* 100 MG PO ONE (06:00)
[2019-04-28] MEDS ORDERED: Famotidine TAB* 20 MG PO ONE (06:00)
[2019-04-28] MEDS ORDERED: Gabapentin CAP(*) 300 MG PO ONE (06:00)
[2019-04-28] MEDS ORDERED: Lactated Ringers 1000 ML Bag* 1,000 ML IV SCH (06:00)
[2019-04-28] MEDS ORDERED: Acetaminophen TAB* 325 MG PO ONE (06:00)
[2019-04-28] MEDS ORDERED: Dexamethasone IV* 4 MG/ML 1 ML (4 MG) IV SLOW PU ONE (06:00)
[2019-04-28] MEDS ORDERED: celeCOXIB CAP* 100 MG ONE (06:16)
[2019-04-28] MEDS ORDERED: Dexamethasone IV* 4 MG/ML 1 ML (4 MG) ONE (06:16)
[2019-04-28] MEDS ORDERED: Acetaminophen TAB* 325 MG ONE (06:17)
[2019-04-28] MEDS ORDERED: Gabapentin CAP(*) 300 MG ONE (06:17)
[2019-04-28] MEDS ORDERED: Clindamycin 900 MG IVPREMIX(* 900 MG/50 ML SDV IV ONE (06:17)
[2019-04-28] MEDS ORDERED: Buffered Lidocaine 1% SYRIN* 1 ML/SYRINGE INTRADERM ONE (06:47)
[2019-04-28] MEDS ORDERED: Famotidine TAB* 20 MG ONE (06:51)
[2019-04-28] MEDS ORDERED: ROPIVACAINE 5 MG/ML 30 ML BTL (0.5%) ONE ×2 (06:54→07:10)
[2019-04-28] MEDS ORDERED: Lidocaine 1%** 5 ML VIAL ONE (07:10)
[2019-04-28] MEDS ORDERED: fentaNYL* 50 MCG/ML 2 ML VIAL (100 MCG VIAL) ONE ×2 (07:15→10:59)
[2019-04-28] MEDS ORDERED: Propofol* 10 MG/ML 20 ML BTL ONE (07:15)
[2019-04-28] MEDS ORDERED: Rocuronium* 10 MG/ML VIAL ONE (07:15)
[2019-04-28] MEDS ORDERED: Midazolam* 1 MG/ML 2 ML VIAL (2 MG) ONE (07:15)
[2019-04-28] MEDS ORDERED: HYDROmorphone INJ1* 1 MG/ML SYRINGE ONE (08:42)
[2019-04-28] MEDS ORDERED: oxyCODONE TAB* 5 MG TAB PO PRN (09:06)
[2019-04-28] MEDS ORDERED: Ketorolac INJ* 30 MG/ML 1 ML VIAL IV PRN (09:06)
[2019-04-28] MEDS ORDERED: HYDROmorphone INJ1* 1 MG/ML SYRINGE IV PRN (09:06)
[2019-04-28] MEDS ORDERED: DiMENhydriNATE IV* 50 MG/ML VIAL IV PUSH PRN (09:06)
[2019-04-28] MEDS ORDERED: fentaNYL* 50 MCG/ML 2 ML VIAL (100 MCG VIAL) IV PRN (09:06)
[2019-04-28] MEDS ORDERED: Acetaminophen IV 1GM/100ML * 1,000 MG/100 ML VIAL IVPB ONE (09:06)
[2019-04-28] MEDS ORDERED: Naloxone* 0.4 MG/ML 1 ML VIAL IV PRN (09:06)
[2019-04-28] MEDS ORDERED: EPHEDrine (Pressors)* 50 MG/ML VIAL ONE (09:46)
[2019-04-28] MEDS ORDERED: Ondansetron INJ* 2 MG/ML VIAL ONE (09:53)
[2019-04-28] MEDS ORDERED: Ondansetron INJ* 2 MG/ML VIAL IV PRN (10:25)
[2019-04-28] MEDS ORDERED: Cyclobenzaprine TAB* 10 MG PO PRN (10:25)
[2019-04-28] MEDS ORDERED: diPHENhydraMINE IV* 50 MG/ML 1 ml VIAL (BENADRYL) IV PRN (10:25)
[2019-04-28] MEDS ORDERED: traMADol TAB* 50 MG PO PRN (10:25)
[2019-04-28] MEDS ORDERED: Morphine INJ* 2 MG/ML 1 ML SYRINGE (TWO MG - NEW SYRINGE VERSION) IV PRN (10:25)
[2019-04-28] MEDS ORDERED: Bisacodyl SUPP* 10 MG SUPP PR PRN (10:25)
[2019-04-28] MEDS ORDERED: Polyethylene Glycol 3350* 17 GM PACKET PO PRN (10:25)
[2019-04-28] MEDS ORDERED: diPHENhydraMINE PO* 25 MG PO PRN (10:25)
[2019-04-28] MEDS ORDERED: Magnesium Hydroxide LIQ* 30 ML UDC PO PRN (10:25)
[2019-04-28] MEDS ORDERED: Neostigmine Methylsulfate* 3 MG/3 ML SYRINGE ONE (10:39)
[2019-04-28] MEDS ORDERED: Acetaminophen IV 1GM/100ML * 100 ML ONE (10:59)
[2019-04-28] MEDS ORDERED: ALENDRONATE 10 MG PO SCH (11:00)
[2019-04-28] MEDS ORDERED: oxyCODONE TAB* 5 MG TAB ONE (11:06)
[2019-04-28] MEDS ORDERED: Ketorolac INJ* 30 MG/ML 1 ML VIAL ONE (11:07)
--- NOTE | 2019-04-28 13:23 | PN ---
Progress Note - Progress Note Date of Service: 04/28/19 Note: patient arrived from PACU in good spirits. She is resting comfortably without complaints. She dorsiflexes and plantar flexes the bilateral ankles, with 2+ DP pulses, and intact but altered sensation to light touch in both feet.
[2019-04-28] MEDS: Lactated Ringers 1000 ML Bag* 1,000 ML IV SCH (13:34)
[2019-04-28] MEDS: Acetaminophen TAB* 325 MG PO SCH ×2 (14:58→18:46)
[2019-04-28] MEDS: Clindamycin 600 MG IVPREMIX(* 600 MG/50 ML SDV IV SCH ×2 (15:21→22:52)
--- NOTE | 2019-04-28 17:14 | OP ---
Operative Report - Blank - Operative Report Date of Operation: 04/28/19 Note: EVIE MADRID 1940 Date of Surgery: 04/28/19 Carla Mesa MD Supervisor Wound: Lucinda REESE did help throughout the procedure with preparation of the knee, wound retraction, manipulation of the knee, and wound closure. Anesthesiologist: Marlen Rodriguez MD Anesthesia Type: Spinal Preoperative Diagnosis: Right severe degenerative osteoarthritis of the knee Postoperative Diagnosis: As above Procedure Performed: Right Total Knee Arthroplasty Tourniquet time: 56 minutes Complications: None Specimen: Bone and cartilage from the right knee joint sent to pathology. Hardware Used: Cemented [employer]hew total knee hardware was used - For the femur a size 5 narrow legion posterior stabilized femoral component, for the tibia a size 3 michelle II tibial baseplate, for the insert a size 9mm constrained articular polyethylene insert, and for the patella a size 26 3-peg all poly patella. Brief History/Indication: EVIE MADRID was known in clinic and had a history of severe right knee pain and swelling. She failed conservative treatment with anti-inflammatories, pain pills, intra-articular injections and physical therapy. She elected to undergo right total knee arthroplasty due to continued pain and decreased quality of life. Radiographs showed severe end stage osteoarthritis of the knee with bone on bone contact. Informed consent was obtained from the patient. She understood the risks of surgery included but were not limited to: bleeding, infection, damage to nearby structures, intraoperative fracture, nerve palsy, failure of the hardware, early loosening, knee stiffness or loss of motion, anesthesia complications, stroke, heart attack , blood clot and . She wished to proceed. Intra-Operative Findings: Intraoperatively the patient was noted to have severe loss of cartilage in all 3 compartments of the knee. She had 17 degree valgus deformity to start the case. Description of the Procedure: EVIE MADRID was identified in the preanesthesia unit. Her right knee was marked as the correct operative side. Informed consent was signed and placed in the chart. The patient was taken to the operating room and placed under anesthesia without complication. A archer catheter was placed. A tourniquet was placed on the right thigh. The right lower extremity was prepped and draped in the usual sterile fashion. Preoperative time-out was made to correctly identify the patient, side and site. Appropriate intraoperative antibiotics were given within one hour of incision. Tourniquet was inflated. A midline incision was made and carried sharply down to the extensor mechanism. A new 10 blade was used to make a standard medial parapatellar arthrotomy. The patella was subluxed laterally. Electrocautery was used to dissect soft tissue off the superomedial tibia to the midsagittal plane. The knee was flexed up. The anterior horn of the lateral meniscus and the ACL were sharply incised. A drill was used to enter the distal femur. The intramedullary distal femoral cutting guide was pinned on the distal femur. The oscillating saw was used to make the distal femoral cut. The external rotation guide was pinned on the distal femur and the distal femur was sized to a size 5. The size 5 multi-cutting jig was pinned on the distal femur. The oscillating saw was used to make the appropriate 4 chamfer cuts. Next the PCL was completely released. The extramedullary tibial cutting guide was pinned on the proximal tibia and the oscillating saw was used to make the proximal tibial cut perpendicular to the mechanical axis of the tibia. The bone was carefully removed. The knee was brought out into full extension. The spacer block was placed and had excellent fit with the knee in full extension. The medial and lateral ligaments were well balanced. The flexion and extension gaps were well balanced. The knee was flexed up. Lamina rock lather was placed both medially and laterally. Any remaining meniscus was removed with electrocautery. Curved osteotome was used to remove any posterior osteophytes. The tibial tray and drop shay were placed and confirmed a satisfactory tibial cut. The size 5 right narrow femoral trial was impacted onto the distal femur. This trial had excellent fit and stability. The box for the posterior stabilized implant was prepared using a box cut osteotome and a reamer. Next a tibial tray trial and 9 mm insert trial was placed. The knee was taken through a range of motion and had full extension to 130 degrees of flexion. Patellofemoral tracking was satisfactory. The patella was inverted and sized to a size 26. Three peg holes were drilled through the size 26 drill guide. The trial patella was placed and the knee was taken through a range of motion. There was satisfactory patellofemoral tracking. All trials were removed. The tibia was subluxed anteriorly and sized to a size 3. The proximal tibial was prepared with a size 3 keel punch. All bony cut surfaces were irrigated with sterile saline and dried. Final implants were cemented into place starting with the tibia, followed by the femur, and last the patella. A 9 mm insert trial was placed and the knee was brought into full extension. Tourniquet was turned down and the knee was copiously irrigated with sterile saline. Electrocautery was used to obtain meticulous hemostasis. Once the cement had fully cured, the insert trial was removed. Any excess cement was removed from around the hardware and capsule. Final insert chosen was a 9 mm constrained Michelle II articular insert size 3-4. Stability of the insert was checked and noted to be stable. The extensor mechanism was closed using number 1 vicryls. The rest of the incision was closed in a layered fashion using 0 and 2-0 vicryls. The skin was closed using 3-0 nylon suture. Sterile xeroform, 4x4s and webril were used to cover the incision. Mk wrap and cold pack were used to cover the dressings. The patients anesthesia was reversed without difficulty. She was taken to the PACU in stable condition. Intended weight-bearing will be as tolerated.
[2019-04-28] MEDS: oxyCODONE/Acetamin 5/325 MG* TAB PO PRN ×2 (18:50→22:46)
[2019-04-28] MEDS: Magnesium Hydroxide LIQ* 30 ML UDC PO SCH (22:46)
[2019-04-28] MEDS: Calcium Carbonate TAB* 1250 MG (CALCIUM 500 MG) PO SCH (22:46)
[2019-04-28] MEDS: Docusate CAP* 100 MG PO SCH (22:59)
[2019-04-29] MEDS: Lactated Ringers 1000 ML Bag* 1,000 ML IV SCH (00:28)
[2019-04-29] MEDS: oxyCODONE/Acetamin 5/325 MG* TAB PO PRN ×5 (02:59→20:22)
[2019-04-29] MEDS: Acetaminophen TAB* 325 MG PO SCH ×3 (03:07→17:31)
[2019-04-29 05:55] LABS: Hematocrit 32 % (35-47); Mean Platelet Volume 8.4 fL (7.4-10.4); Platelet Count 168 10^3/uL (150-450)
[2019-04-29 06:21] LABS: EGFR African American 107.2 (>60); EGFR Non-African American 88.6 (>60); Potassium 4.5 mmol/L (3.5-5.0)
[2019-04-29] MEDS: Clindamycin 600 MG IVPREMIX(* 600 MG/50 ML SDV IV SCH (06:38)
[2019-04-29] MEDS: Apixaban* 2.5 MG TAB PO SCH ×2 (07:47→21:02)
[2019-04-29] MEDS: Magnesium Hydroxide LIQ* 30 ML UDC PO SCH ×2 (07:47→21:03)
[2019-04-29] MEDS: Docusate CAP* 100 MG PO SCH ×2 (07:47→21:02)
[2019-04-29] MEDS: Vitamin THERAPEUTIC TAB PO SCH (07:47)
[2019-04-29] MEDS: Calcium Carbonate TAB* 1250 MG (CALCIUM 500 MG) PO SCH ×2 (07:47→21:01)
--- NOTE | 2019-04-29 11:25 | PN ---
Progress Note - Progress Note Date of Service: 04/29/19 SOAP: Subjective: []Patient seen OOB in chair, feeling well. Denies SOB, CP, dizziness, nausea. She is hoping for a bed a [facility] for rehab. Objective: [] Vital Signs Temp 97.6 F 04/29/19 07:50 Pulse 60 04/29/19 07:50 Resp 16 04/29/19 09:47 BP 101/54 04/29/19 07:50 Pulse Ox 96 04/29/19 07:50 Intake & Output 04/28/19 04/29/19 04/29/19 18:59 06:59 18:59 Intake Total 2120 2490 240 Output Total 550 1600 Balance 1570 890 240 Intake: IV Fluids 1800 990 LR 1800 990 IVPB 100 LR 100 Oral 320 1400 240 Output: Jenkins 400 1600 Estimated Blood Loss 150 Other: # Bowel Movements 0 Laboratory Results - last 24 hr 04/29/19 04/29/19 05:44 05:44 Hgb 11.0 L Hct 32 L Plt Count 168 MPV 8.4 Sodium 139 Potassium 4.5 Chloride 107 Carbon Dioxide 28 Anion Gap 4 BUN 13 Creatinine 0.65 Est GFR ( Amer) 107.2 Est GFR (Non-Af Amer) 88.6 BUN/Creatinine Ratio 20.0 Glucose 123 H Calcium 8.0 L right knee dressing dry and intact calf NT and soft sensation and circulation intact RLE Assessment: []s/p Right total knee arthroplasty POD #1 Plan: []PT/OT WBAT RLE dressing change 04/30 [facility] Thursday if bed available
[2019-04-30] MEDS: oxyCODONE/Acetamin 5/325 MG* TAB PO PRN ×6 (00:18→21:51)
[2019-04-30] MEDS: Acetaminophen TAB* 325 MG PO SCH ×3 (02:19→18:33)
[2019-04-30 06:04] LABS: Hematocrit 30 % (35-47); Hemoglobin 10.6 g/dL (12.0-16.0); Mean Platelet Volume 9.6 fL (7.4-10.4); Platelet Count 161 10^3/uL (150-450)
[2019-04-30] MEDS ORDERED: ALENDRONATE 70 MG PO SCH (07:30)
--- NOTE | 2019-04-30 08:10 | PN ---
Progress Note - Progress Note Date of Service: 04/30/19 SOAP: Subjective: POD #2 Right TKA. Doing ok. Pain controlled. Denies CP/SOB, N/V, calf pain or swelling. Objective: Vitals: Temp Pulse Resp BP Pulse Ox 98.6 F 75 16 129/54 97 04/30/19 07:45 04/30/19 07:45 04/30/19 07:45 04/30/19 07:45 04/30/19 07:45 Gen: A&O x3, NAD at rest sitting at bedside RLE: Incision C/D/I. Mild ecchymosis and edema. No erythema. +f/e at ankle and MTPs. Sensation intact, DP 2+. Calf soft, NT. Labs: Laboratory Results - last 24 hr 04/30/19 05:01 Hgb 10.6 L Hct 30 L Plt Count 161 MPV 9.6 Assessment: POD #2 Right TKA Plan: Cont PT/OT, WBAT Eliquis for DVT ppx Awaiting [facility] transfer Thursday
[2019-04-30] MEDS: Calcium Carbonate TAB* 1250 MG (CALCIUM 500 MG) PO SCH ×2 (08:47→21:27)
[2019-04-30] MEDS: Docusate CAP* 100 MG PO SCH ×2 (08:47→21:27)
[2019-04-30] MEDS: Apixaban* 2.5 MG TAB PO SCH ×2 (08:47→21:27)
[2019-04-30] MEDS: Vitamin THERAPEUTIC TAB PO SCH (08:47)
[2019-04-30] MEDS: Magnesium Hydroxide LIQ* 30 ML UDC PO SCH ×2 (09:18→21:28)
[2019-05-01] MEDS: Acetaminophen TAB* 325 MG PO SCH ×4 (03:22→20:09)
[2019-05-01] MEDS: oxyCODONE/Acetamin 5/325 MG* TAB PO PRN ×2 (03:23→08:45)
[2019-05-01 05:29] LABS: Hematocrit 30 % (35-47); Hemoglobin 10.2 g/dL (12.0-16.0); Mean Platelet Volume 7.8 fL (7.4-10.4); Platelet Count 160 10^3/uL (150-450)
[2019-05-01] MEDS ORDERED: ALENDRONATE 70 MG PO SCH (06:00)
--- NOTE | 2019-05-01 08:12 | PN ---
Progress Note - Progress Note Date of Service: 05/01/19 SOAP: Subjective: POD #3 Left TKA. Doing well. Had n/v last night, thinks it was due to MOM. Otherwise feeling well. Denies CP, SOB, calf pain. Objective: Vital Signs: Temp Pulse Resp BP Pulse Ox 99.1 F 78 16 129/52 95 05/01/19 07:52 05/01/19 07:52 05/01/19 07:52 05/01/19 07:52 05/01/19 07:52 Gen: A&Ox3, NAD at rest sitting in bed LLE: Dressing C/D/I. +f/e at ankle and MTPs, calf soft/NT. N/V intact Labs: Laboratory Results - last 24 hr 05/01/19 05:24 Hgb 10.2 L Hct 30 L Plt Count 160 MPV 7.8 Assessment: POD #3 Left TKA Plan: Cont PT/OT Awaiting [facility] transfer, hopefully Thursday Eliquis for DVT ppx
[2019-05-01] MEDS: Magnesium Hydroxide LIQ* 30 ML UDC PO SCH ×2 (08:38→19:42)
[2019-05-01] MEDS: Vitamin THERAPEUTIC TAB PO SCH (08:41)
[2019-05-01] MEDS: Calcium Carbonate TAB* 1250 MG (CALCIUM 500 MG) PO SCH ×2 (08:41→20:10)
[2019-05-01] MEDS: Apixaban* 2.5 MG TAB PO SCH ×2 (08:41→20:11)
[2019-05-01] MEDS: Docusate CAP* 100 MG PO SCH ×2 (08:42→20:10)
[2019-05-02] MEDS: Acetaminophen TAB* 325 MG PO SCH ×2 (03:13→11:50)
[2019-05-02 05:50] LABS: Hematocrit 32 % (35-47); Hemoglobin 11.3 g/dL (12.0-16.0); Mean Platelet Volume 8.7 fL (7.4-10.4); Platelet Count 185 10^3/uL (150-450)
--- NOTE | 2019-05-02 07:55 | DS ---
Orthopedic Discharge Summary - Discharge Summary Date of Admission:04/28/19 Date of Discharge: 05/02/19 Date of Surgery: 04/28/19 Attending Orthopedic Provider: Dr Mesa Pre-operative Diagnosis: Left knee osteoarthritis Operative Procedure: left total knee arthroplasty Disposition of Patient: [facility] Condition of Patient: stable History: EVIE MADRID is a 78 year old F with years of increasingly severe left knee pain. Patient has failed conservative management and has elected to undergo a left total knee replacement Hospital Course: EVIE was admitted to [facility] on 04/28/19. Patient underwent a left total knee replacement without complication followed by a brief recovery in PACU and transfer to the Short Stay Surgical Unit in stable condition. Physical therapy and occupational therapy also participated in this patients care. Post-op day 1: patient was alert and in no acute distress. Dressing was clean, dry and intact. Operative extremity dorsiflexion and plantarflexion intact, sensation intact to light touch distally, DP2+. Post- op day two: dressing was changed, incision was clean, dry and intact. Exam unchanged throughout rest of hospital stay. 05/02/19 Dressing changed, incision CDI without erythema or discharge. Patient felt well without CP, SOB, dizziness or nausea. Patient was deemed to be medically and orthopedically stable for discharge to [facility]. Discharge Medications Alendronate TAB (NF) [Fosamax TAB (NF)] 1 tab PO WEEKLY 01/14/19 [History Confirmed 04/28/19] Calcium Carbonate [Calcium] 1,200 mg PO BID 02/13/19 [History Confirmed 04/28/19 ] Clindaycin 600 mg PO SEE INSTRUCTIONS 02/13/19 [History Confirmed 04/28/19] Multivitamin [Multiple Vitamins] 1 tab PO QAM 02/13/19 [History Confirmed ] [place]-3 Fatty Acids/Fish Oil [[place] 3 1,000 mg Softgel] 1 each PO TID 02/13/19 [ History Confirmed 04/28/19] Acetaminophen [Acetaminophen 8 Hour] 650 mg PO Q6H PRN 04/18/19 [History Confirmed 04/18/19] Acetaminophen TAB* [Tylenol TAB*] 975 mg PO Q8H tab 05/02/19 [Rx] Apixaban* [Eliquis*] 2.5 mg PO BID 60 Days #0 tab 05/02/19 [Rx] Docusate CAP* [Colace Cap*] 100 mg PO BID cap 05/02/19 [Rx] oxyCODONE/Acetamin 5/325 MG* [Percocet 5/325 TAB*] 1 tab PO Q3H PRN tab MDD 6 05/02/19 [Rx] Discharge Instructions following Orthopedic Surgery: Activity: * Weight Bearing as tolerated * Continue physical therapy and occupational therapy exercises as shown Wound care: * OK to shower on post-op day 3, no bathing, swimming, or submerging wound. * Use gentle soap, pat dry. Cover with gauze, TAN wrap or tape. * facility nurse to do wound checks. Call Orthopedic office for: * Increased drainage * Redness * Increased pain * Fever Go to ER with shortness of breath or chest pain. Diet: * Regular diet * Increase fluids and fiber to prevent constipation. * Continue to use stool softeners, call office if no bowel motion within 48 hours. Medications See Home Medication List in your packet for medications that you should take after discharge. DVT Prophylaxis: Eliquis Dosin.5 mg, 1 tab every 12 hours x 30 days. Mecication increases bleeding tendency Pain Control: Percocet Dosin/325 mg 1-2 tabs by mouth every 4-6 hours as needed for pain. Maximum of 6 tabs per day. Hold for sedation, wean off as soon as pain allows Please note that Percocet contains Tylenol (acetaminophen). Maximum daily dose of Tylenol is 4000 mg from all sources. Antibiotics are required prior to any dental work. FOLLOW UP: Follow up with [Moshe ] Within 10-14 days, call for appointment Please call our office with any questions or concerns ([phone])
[2019-05-02] MEDS: Docusate CAP* 100 MG PO SCH (07:56)
[2019-05-02] MEDS: Calcium Carbonate TAB* 1250 MG (CALCIUM 500 MG) PO SCH (07:56)
[2019-05-02] MEDS: Apixaban* 2.5 MG TAB PO SCH (07:56)
[2019-05-02] MEDS: Vitamin THERAPEUTIC TAB PO SCH (07:57)
[2019-05-02] MEDS: Magnesium Hydroxide LIQ* 30 ML UDC PO SCH (09:52)
[2019-05-02 11:33] VITALS: BP 136/65
== END 2019-05-02 13:15 | DRG 470 ==
LOC: AA 04-28 05:36 → SSU 04-28 13:18
PROVIDERS: ADMIT Orthopaedic Surgery Adult Reconstructive Orthopaedic Surgery; ATTEND Orthopaedic Surgery Adult Reconstructive Orthopaedic Surgery
PROC: 0SRC0J9 Replacement of Right Knee Joint with Synthetic Substitute, Cemented, Open Approach (ICD-10-PCS; principal; 2019-04-28 07:30)
DX: M17.11 Unilateral primary osteoarthritis, right knee (principal); Z96.652 Presence of left artificial knee joint; M25.461 Effusion, right knee; F32.9 Major depressive disorder, single episode, unspecified; F41.9 Anxiety disorder, unspecified; E78.00 Pure hypercholesterolemia, unspecified; M85.80 Other specified disorders of bone density and structure, unspecified site; K21.9 Gastro-esophageal reflux disease without esophagitis; G60.9 Hereditary and idiopathic neuropathy, unspecified; M51.36 Other intervertebral disc degeneration, lumbar region; R94.31 Abnormal electrocardiogram [ECG] [EKG]; M25.761 Osteophyte, right knee; Z98.51 Tubal ligation status; Z98.1 Arthrodesis status; Z88.0 Allergy status to penicillin; Z88.1 Allergy status to other antibiotic agents; Z88.2 Allergy status to sulfonamides; Z88.6 Allergy status to analgesic agent; Z91.041 Radiographic dye allergy status; Z82.49 Family history of ischemic heart disease and other diseases of the circulatory system; Z82.3 Family history of stroke; Z83.2 Family history of diseases of the blood and blood-forming organs and certain disorders involving the immune mechanism; Z88.7 Allergy status to serum and vaccine; Z80.9 Family history of malignant neoplasm, unspecified; Z72.89 Other problems related to lifestyle
CPT/HCPCS: 36415; 80048; 85014; 85018; 85049; 88305; 88311; A9270-GY; C1776; G8978-GP-CL; G8979-GP-CI; G8987-GO-CJ; G8988-GO-CI; J1100; J1170; J1885; J2250; J2405; J2704; J2710; J2795; J3010

== ENCOUNTER 2019-07-31 18:34 | Emergency (ER) | payer MEDICARE ==
--- OUTSIDE RECORDS SUMMARY | 2019-07-31 18:41 | XMS REPORT | Continuity of Care Document ---
:1940 External Reference #:[id number] Author Name Edwin Morrow MD Address [address] [place] [address] Care Team Providers Name Role Phone Edwin Morrow MD Care Team Information Psychologist Counseling Unavailable Payers Date Identification Numbers Payment Provider Subscriber Effective: 2005 Policy Number: [id number] Medicare Part B Yuliya Card PayID: [id number] [address] [place] [address] Policy Number: [id number] [facility] Healthcare Options Yuliya Card PayID: [id number] [address] [place] [address] Problems Active Problems Provider Date Anxiety state [...] Medications SIG Qnty Indications Ordering Provider Date Duloxetine HCL 1 by mouth 30caps F33.0 Odalys, 05/24/2019 20mg Caps every day MD DR José Pineda M15.9 M51.36 Zofran Take 1 tablet by mouth 30tabs R11.0 Riri Jules, 05/23/2019 4mg Tablets every 8 hours for nausea and vomiting Wheeled Walker W/ Dx: end stage r knee 1units M17.11 Odalys, 2018 Seat, Brakes osteoarthritis MD Edwin Furosemide 1 by mouth every day 30tabs R60.0 Spencer Madden, 04/12/2019 20mg as needed for edema DO Tablets Fish Oil [place]-3 1 by mouth every day E78.00 Heatheriovanna, 03/04/2018 otc MD Edwin 1000mg Capsules Fluticasone 1-2 sprays to each 15.800ml J06.9 [place], 12/18/2017 Propionate nostril daily as MD Hannah 50mcg/Act needed Suspension Multivitamin Adults 1 by mouth [...] One by mouth Unknown 600Unit Capsules daily Eliquis 1 by mouth twice Unknown 2.5mg Tablets a day History Medications Meloxicam take one tablet 15tabs Odalys, 05/13/2019 - 15mg Tablets by mouth every MD Edwin 05/20/2019 day with food as needed for pain Cephalexin 1 pill by mouth 15caps T50.B95 Odalys, 04/19/2019 - 250mg 3 times a day A MD Edwin 04/24/2019 Capsules for 5 days Azithromycin 2 tablets by 6tabs J01.90 Spencer Madden DO 04/12/2019 - 250mg mouth on day 1 04/17/2019 Tablets then 1 tablet on days [...] Ranitidine 150 1 by mouth 30tabs R10.10 Digiovanna, 08/24/2018 - Maximum Strength twice a day as LINWOOD Butterfield 01/26/2019 150mg needed Tablets Azithromycin 2 pills by 6tabs L03.211 Odalys, 04/20/2018 - 250mg mouth day 1, MD Edwin 04/30/2018 Tablets then 1 pill once daily for 4 more days (take w/ food) Ciprofloxacin HCL 1 by mouth 10tabs R30.0 Heatheriovincent, 09/29/2017 - 250mg twice a day for GreerLINWOOD rudolph 10/04/2017 Tablets 5 days Tizanidine HCL 1 by mouth at 14tabs M54.5 Spencer Madden, 08/13/2017 - 2mg bedtime 09/29/2017 Tablets Lorazepam [...] 30mg capsule by MD Edwin 01/05/2018 Caps Part mouth every day G60.9 F33.0 Azelastine HCL spray 1 spray in 30ml H68.001 Spencer Madden, 10/09/2016 - (Nasal) each nostril two DO 07/01/2017 0.15% times a day Solution Frye Colon one daily or use Odalys, 08/27/2016 - Health align daily both MD Edwin 03/04/2018 Capsules over the counter Kaopectate Extra as directed A09 Odalys, 06/23/2016 - Strength MD Edwin 06/30/2016 525mg/15ML Suspension Loperamide HCL take one capsule 90caps A09 Odalys, 06/23/2016 - 2mg by mouth three MD Edwin 06/30/2016 Capsules times a day as needed for loose stools Cephalexin 1 pill by mouth 3 15tabs R21 Heatheriovincent, 06/04/2016 - 250mg times a day for 5 MD Edwin 06/09/2016 Tablets days Duloxetine HCL 1 by mouth every 30caps M51.36 Heatheriovincent, 12/06/2015 - 20mg day MD Edwin 02/26/[address] Kumar G60.9 F33.0 Citalopram 1 by mouth 30tabs M51.36 Odalys, 12/05/2015 - Hydrobromide every day MD Edwin Unknown 10mg Tablets G60.9 F32.8 Duloxetine HCL 1 by mouth 30caps M51.36 Odalys, Edwin, 12/04/2015 - 20mg every day 05/26/2016 Caps [...] 1/2 or 1 pill by 30tabs M54.2 Heatheriovincent, 08/14/2015 - 50mg Tablets mouth 3 times a MD Edwin 02/26/2017 day as neededfor neck and arm pain R20.2 Prednisone 1 pill by 10tabs M54.2 Heatheriovanmarie, 08/07/2015 - 20mg mouth twice a MD Edwin 09/18/2015 Tablets day with food for 5 days Tizanidine HCL 1-2 po qhs prn 14tabs 733.6 Spencer Madden, DO 07/26/2015 - 2mg pain 08/03/2015 Tablets Biotin 1 PO qd OTC Digiovanna, 02/08/2015 - Tablets MD Edwin 12/31/2016 Citalopram 1/2 by mouth 300.00 Heatheriovincent, 11/07/2014 - Hydrobromide every day MD Edwin [...] Capsules By MD Edwin 08/24/[address] Latonya Every Morning R10.13 [place] 50 3PO qd E78.0 Edwin Morrow 10/09/2008 [...] 500mg Mouth Twice A Day 03/07/2019 Tablets Tramadol HCL one or two by Unknown - 50mg Tablets mouth four times a 06/03/2019 day as needed pain Immunizations CPT Code Status Date Vaccine Reaction Lot # 13547 Given 04/17/2019 Shingrix (Shingles) Zoster Vaccine HZV, KINNEYS Recombinant, Subunit, Adj 12207 Given 01/28/2019 Shingrix (Shingles) Zoster Vaccine HZV, KINNEYS Recombinant, Subunit, Adj 68238 Given 06/20/2015 Prevnar 13 Pneumococal Conjugate Vaccine [id number] 92296 Given 06/02/2012 Tdap (Adacel) Ages 7 And Above Only 96711 Given 10/09/2008 Pneumococcal 23 Immunization Adult Or Immunosuppressed Patient 19275 Given 10/09/2008 Pneumococcal 23 Immunization Adult Or Immunosuppressed Patient 92142 Given 10/04/2007 Zoster (Zostavax) [id number] Refused 07/16/2018 Fluzone Highdose Age 65 And Over Preservative & Antibiotic Free 88565 Refused 09/29/2017 Influenza Vac, Quadrivalent, Split, 0.5mL Dosage, [id number] Im Use Vital Signs Date Vital Result Comment 06/03/2019 10:36am Weight 138.00 lb Heart Rate 76 /min BP Systolic 120 mmHg BP Diastolic 72 mmHg Respiratory Rate 18 /min Height 60 inches 5'0" BMI (Body Mass Index) 26.9 kg/m2 05/23/2019 2:06pm Body Temperature 98.5 F Weight 132.00 lb Heart Rate 74 /min BP Systolic 122 mmHg BP Diastolic 70 mmHg Respiratory Rate 18 /min Height 60 inches 5'0" O2 % BldC Oximetry 98 % BMI (Body Mass Index) 25.8 kg/m2 04/19/2019 5:03pm Weight 147.00 lb Heart Rate [...] Result H/L Range Note Basic (BMP) 03/07/2019 [facility] Sodium 143 mmol/L 135-146 1, 2 Potassium 4.3 mmol/L 3.5-5.2 Chloride# 106 mmol/L 97-110 3 Carbon Dioxide 33 mmol/L 24-34 Glucose 98 mg/dL 70-105 BUN 18 mg/dL 6-26 Creatinine 0.8 mg/dL 0.5-1.4 Calcium 9.6 mg/dL 8.5-10.2 Female Egfr 71 >60 4 Male Egfr 87 >60 5 Anion Gap 4 mmol/L Low 5-15 6 CBC with Auto Diff-fcmg 03/07/2019 [facility] WBC 5.1 K/uL 4.1-11.0 RBC 4.28 M/uL [...] (BMP) 06/30/2018 [facility] Sodium 144 mmol/L 135-146 17, 18 Potassium [...] 0.0 K/uL 0.0-0.3 Comprehensive Met Panel-[facility]G 12/01/2017 [facility] Sodium 142 mmol/L 135- 146 35 Potassium [...] Basophils 0.1 K/uL 0.0-0.3 Basic (BMP) 06/16/2016 [facility] Sodium 142 mmol/L 134-142 Potassium 4.2 mmol/L 3.5-5.2 Chloride 104 mmol/L 97-109 Carbon Dioxide 31 mmol/L 24-34 Glucose 86 mg/dL 70-105 BUN 19 mg/dL 6-26 Creatinine 0.8 mg/dL 0.5-1.4 Calcium 9.0 mg/dL 8.5-10.2 Anion Gap 11 mmol/L 6-14 Non Elizabeth Egfr >60 >60 54 Elizabeth Egfr >60 >60 55 Lipid 12/12/2015 [facility] Cholesterol 155 mg/dL 50-199 56 Triglycerides 112 mg/dL 30-200 HDL 42 mg/dL 35-85 57 Chol/ HDL Ratio 3.7 ratio 3.7-5.6 VLDL 22 mg/dL 2-29 LDL (Calc) 91 mg/dL 20-99 58 Urinalysis With 11/28/2015 [facility] Urine Color YELLOW Yellow Microscopic (315)- - Urine Clarity CLEAR Clear Urine Glucose - Dipstick NEGATIVE mg/dL Negative Urine Bilirubin - Dipstick NEGATIVE Negative Urine Ketone 15 mg/dL High Negative Urine Specific [place] 1.010 1.010-1.030 Urine Blood NEGATIVE Negative Urine [...] Urine Mucus SMALL NONESEEN Urine Screen 11/28/2015 [facility] Ua RFX Micro See Note 60 (315)- - + Culture II Urine Culture 11/28/2015 [facility] Urine Culture See Note 61 (315)- - Comprehensive 11/28/2015 [facility] Glucose 107 mg/dL High 74-106 Metabolic [...] Alkaline Phosphatase 85 U/L 45-117 CBC 11/28/2015 [facility] White Blood Count 6.2 K/uL 3.1-10.7 (315)- [...] 2.1 mg/dL 1.5-2.7 finding Laboratory test 12/01/2014 [facility] Sgot/Ast 15 U/L 15-37 72 finding (315)- - SGPT/Alt 18 U/L 12-78 Vitamin D,25-Hydroxy 44.7 ng/mL 30.0-100.0 73 LDL Cholesterol 12/01/2014 [facility] Cholesterol 187 mg/ dL < 200 74 Profile (315)- - Triglycerides 125 mg/dL < 150 75 HDL Cholesterol 42 mg/dL > 40 76 LDL-Cholesterol 120 mg/dL < 100 77 Basic Metabolic Panel 12/01/2014 [facility] Glucose 86 mg /dL 74-106 [...] mmil/L 137.0-145.0 eGFR 75.2 Lipid Panel 11/29/2013 [facility] Chol/HDL Ratio 5.1 ratio Cholesterol 200.0 mg/dL High 50.0-199.0 HDL 39.0 mg/dL 29.0-86.0 LDL, Calculated 129.2 mg/dL High 20.0-129.0 Triglycerides 159.0 mg/dL 30.0-249.0 vLDL 31.8 ng/dL Laboratory test finding 11/29/2013 [facility] % Baso. 1.9 % 0.0-2.0 % Eos. 1.6 % 0.0-4.0 % Lymph 45 % High 20-44 % Brantley 6.8 % 2.0-10.0 % Danielle 44 % Low 50-70 Absolute Baso. 0.1 K/ul 0.0-0.3 Absolute Eos. 0.1 K/ul 0.0-0.5 Absolute Lymph. 2.1 K/ul 0.8-4.8 Absolute Brantley. 0.3 K/ul 0.1-1.0 Absolute Danielle. 2.01 K/ul [...] mild renal disease, if clinically at risk: >/= 60 mL/min Moderately decreased: 30-59 Severely decreased: 15-29 Renal failure: <15 There is reduced accuracy above 60ml/min/1.73 m squared, but the numeric value may be clinically useful in the near 60 range 5 Concerning GFR Guidelines: Normal function or mild renal disease, if clinically at risk: >/= 60 mL/min Moderately decreased: 30-59 Severely decreased: 15-29 [...] mild renal disease, if clinically at risk: >/= 60 mL/min Moderately decreased: 30-59 Severely decreased: 15-29 [...] mild renal disease, if clinically at risk: >/= 60 mL/min Moderately decreased: 30-59 Severely decreased: 15-29 Renal failure: <15 13 Updated Reference Range 14 Per NCEP ATP III Guidelines: Results lower than 40 mg/dL are suggestive of increased risk for coronary artery disease. Results > or = to 60 mg/dL are considered a negative risk [...] mild renal disease, if clinically at risk: >/= 60 mL/min Moderately decreased: 30-59 Severely decreased: 15-29 [...] mild renal disease, if clinically at risk: >/= 60 mL/min Moderately decreased: 30-59 Severely decreased: 15-29 Renal failure: <15 22 Updated Reference Range 23 Per NCEP ATP III Guidelines: Results lower than 40 mg/dL are suggestive of increased risk for coronary artery disease. Results > or = to 60 mg/dL are considered a negative risk [...] mild renal disease, if clinically at risk: >/= 60 mL/min Moderately decreased: 30-59 Severely decreased: 15-29 [...] mild renal disease, if clinically at risk: >/= 60 mL/min Moderately decreased: 30-59 Severely decreased: 15-29 Renal failure: <15 31 Updated Reference Range 32 Per NCEP ATP III Guidelines: Results lower than 40 mg/dL are suggestive of increased risk for coronary artery disease. Results > or = to 60 mg/dL are considered a negative risk [...] mild renal disease, if clinically at risk: >/= 60 mL/min Moderately decreased: 30-59 Severely decreased: 15-29 Renal failure: <15 38 Concerning GFR Guidelines: Normal function or mild renal disease, if clinically at risk: >/= 60 mL/min Moderately decreased: 30-59 Severely decreased: 15-29 [...] Unless otherwise specified, testing performed by [facility] [address] [place] [phone] 42 SPECIMEN DESCRIPTION STOOL SPECIAL REQUESTS NONE [...] Unless otherwise specified, testing performed by [facility] [address] [place] [phone] 43 PERFORMED AT [address] [place] [address] Unless otherwise specified, testing performed by [facility] [address] [place] [address] 44 NOTE: IF REFLEX CULTURE FOR KLEBSIELLA OXYTOCA IS CLINICALLY INDICATED, PLEASE CONTACT THE [facility] ([phone]) WITHIN 3 DAYS OF THIS REPORT. Unless otherwise specified, testing performed by [facility] [address] [place] [phone] 45 SPECIMEN DESCRIPTION STOOL RESULT NEGATIVE FOR H. PYLORI ANTIGEN BY EIA REPORT STATUS FINAL 01/06/2017 Unless otherwise specified, testing performed by [facility] [address] [place] [address] 46 12/26 preOV 47 Per NCEP ATP III Guidelines: Results lower than 40 mg/dL are suggestive of increased risk for coronary artery disease. Results > or = to 60 mg/dL are considered a negative risk factor. 48 Per NCEP ATP III Guidelines: Normal Population <130 Patients with medical conditions: CHD/DM Optimal: <100 Borderline high: 130-159 High: 160-189 Very high: >189 49 Concerning GFR Guidelines: Normal function or mild renal disease, if clinically at risk: >/= 60 mL/min Moderately decreased: 30-59 Severely decreased: 15-29 [...] mild renal disease, if clinically at risk: >/= 60 mL/min Moderately decreased: 30-59 Severely decreased: 15-29 Renal failure: <15 51 8/ preOV 52 Per NCEP ATP III Guidelines: Results lower than 40 mg/dL are suggestive of increased risk for coronary artery disease. Results > or = to 60 mg/dL are considered a negative risk factor. 53 Per NCEP ATP III Guidelines: Normal Population <130 Patients with medical conditions: CHD/DM Optimal: <100 Borderline high: 130-159 High: 160-189 Very high: >189 54 Concerning GFR Guidelines: Normal function or mild renal disease, if clinically at risk: >/= 60 mL/min Moderately decreased: 30-59 Severely decreased: 15-29 [...] mild renal disease, if clinically at risk: >/= 60 mL/min Moderately decreased: 30-59 Severely decreased: 15-29 Renal failure: <15 56 12/25 preOV 57 Per NCEP ATP III Guidelines: Results lower than 40 mg/dL are suggestive of increased risk for coronary artery disease. Results > or = to 60 mg/dL are considered a negative risk factor. 58 Per NCEP ATP III Guidelines: Normal Population <130 Patients with medical conditions: CHD/DM Optimal: <100 Borderline high: 130-159 High: 160-189 Very high: >189 59 POSSIBLE UROGENITAL CONTAMINATION. 60 11/28/15 [email or web address] Deleted by Reflex Group [facility] 61 Organism 1 ! URETHRAL RAMA Quantity [...] mild renal disease, if clinically at risk: >/= 60 mL/min Moderately decreased: 30-59 Severely decreased: 15-29 [...] mild renal disease, if clinically at risk: >/= 60 mL/min Moderately decreased: 30-59 Severely decreased: 15-29 [...] risk for coronary artery disease. Results > or = to 60 mg/dL are considered a negative risk factor. 69 Per NCEP ATP III Guidelines: Normal Population <130 Patients with medical conditions: CHD/DM Optimal: <100 Borderline high: 130-159 High: 160-189 Very high: >189 70 Concerning GFR Guidelines: Normal function or mild renal disease, if clinically at risk: >/= 60 mL/min Moderately decreased: 30-59 Severely decreased: 15-29 [...] mild renal disease, if clinically at risk: >/= 60 mL/min Moderately decreased: 30-59 Severely decreased: 15-29 Renal failure: <15 72 has 12/18 Vitamin D deficiency has been defined by the [place] of [employer] and an Endocrine Society practice guideline as a level of serum 25-OH vitamin D less than 20 ng/mL (1,2). The Endocrine Society went on to further define vitamin D insufficiency as a level between 21 and 29 ng/mL (2). 1. IOM ([place] of [employer]). 2010. Dietary reference intakes for calcium and D. [place]: The National Academies Press. 2. Von MF, Jennifer NC, Opal CURRAN, et al. Evaluation, treatment, and prevention of vitamin D deficiency: an Endocrine Society clinical practice guideline. JCEM. 2010; 96(7):1911-30. Performed at: RN - [facility] [address] [id number] Bander Hand: Sonya Alberto MD, Phone: [phone] Reference Guidelines*: Desirable: ........... < 200 mg/dL Borderline High: ..... 200-239 mg/dL High: ................ >= 240 mg/dL * The National Cholesterol Education Program [...] 11/22 preOV Procedures Date Code Description Status 06/03/2019 47541 Brief Emotional/Behav Assessment W/ Scoring Doc Per Completed Standard Inst 05/23/2019 75082 Measure Blood Oxygen Level Single Determination Completed 04/12/2019 95909 Measure Blood Oxygen Level Single Determination Completed 12/02/2018 73515 Remove Impact Cerumen Irrigation/Lavage Completed 04/20/2018 52270917 Mammogram Completed 03/15/2018 [id number] Mammogram Completed 12/18/2017 40044 Measure Blood Oxygen Level Single Determination Completed 11/19/2017 87943419 Colonoscopy Completed 10/21/2017 44789 Remove Impact Cerumen Irrigation/Lavage Completed 07/01/2017 28349 Electrocardiogram Complete Completed 04/13/2017 [id number] Bone Mineral Density Test Completed 04/13/2017 27614 Bone Density Study (Dexa) Axial Skeleton Completed (Hips,Pelvis,Spine) 11/26/2015 12461 Measure Blood Oxygen Level Single Determination Completed 08/07/2015 31228 X-Ray Spine Cervical, 4 Or 5 Views Completed 06/20/2015 63857 Remove Skin Tags Up To 15 Completed 06/14/2015 57111 Measure Blood Oxygen Level Single Determination Completed 06/14/2015 02178 Measure Blood Oxygen Level Single Determination Completed 03/12/2015 44641 Bone Density Study (Dexa) Axial Skeleton Completed (Hips,Pelvis,Spine) 03/12/2015 87678 Old Bone Density Study (Dexa) Completed 03/12/2015 929006500 Bone Mineral Density Test Completed 03/12/2015 67271976 Mammogram Completed 02/12/2015 01174 Measure Blood Oxygen Level Single Determination Completed Encounters Type Date Location Provider Dx Diagnosis Office Visit 05/23/2019 [facility] Ilana [facility] NP 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 , 2:00p unspecified R11.0 Nausea Office Visit 04/19/2019 4:30p [facility] Edwin Morrow, T50.B95A Adverse effect of MD other viral vaccines, initial encounter M17.11 Unilateral primary osteoarthritis, RIGHT knee Office Visit 04/12/2019 11:30a [facility] Adeline Lawton PA J01.90 Acute sinusitis, unspecified R60.0 Localized edema Z68.29 Body mass index (BMI) 29.0-29.9, adult Office Visit 03/07/2019 11:00a [facility] Edwin Morrow, M17.11 Unilateral primary MD osteoarthritis, [...] (BMI) 28.0-28.9, adult Office Visit 12/28/2018 11:15a [facility] Edwin Mrorow MD M54.5 Low back pain M70.62 Trochanteric bursitis, LEFT hip Office Visit 08/24/2018 2:30p [facility] Mayra Morrowricia, 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, LAUNDERER HAND unspecified Office Visit 07/16/2018 1:30p [facility] Edwin Morrow, K21.9 Gastro- esophageal MD reflux disease without esophagitis R60.9 Edema, unspecified R03.0 Elevated blood-pressure reading, w/o diagnosis of htn M85.80 Oth disrd of bone density and structure, unspecified site E78.00 Pure hypercholesterolemia, unspecified M15.9 Polyosteoarthritis, 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, 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, recurrent, mild R53.83 Other fatigue Z79.899 Other care home (current) drug therapy Z96.652 Presence of LEFT artificial knee joint M17.11 Unilateral primary osteoarthritis, RIGHT knee Z68.29 Body mass index (BMI) 29.0-29.9, adult Office Visit 04/20/2018 11:15a Edwin Starks MD L03.211 Cellulitis of face Office Visit 03/12/2018 4:00p [facility] Adeline Lawton PA N64.4 Mastodynia Z68.29 Body mass index (BMI) 29.0-29.9, adult Office Visit 03/04/2018 9:45a Edwin Starks, M25.579 Pain in unspecified MD ankle and joints of unspecified foot K21.9 Gastro-esophageal reflux disease without esophagitis Z68.29 Body mass index (BMI) 29.0-29.9, adult Office Visit 01/05/2018 1:30p [facility] Edwin Morrow, R03.0 Elevated blood-pressure MD reading, w/o diagnosis of htn E78.00 Pure hypercholesterolemia, unspecified M85.80 Oth disrd of bone density and structure, unspecified site M15.9 Polyosteoarthritis, unspecified K21.9 Gastro-esophageal reflux disease without esophagitis G60.9 Hereditary and idiopathic neuropathy, 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, recurrent, mild M51.36 Other intervertebral disc degeneration, lumbar region Office Visit 12/18/2017 2:00p [facility] Hannah Wilde MD J06.9 Acute upper respiratory infection, unspecified Office Visit 12/01/2017 10:45a [facility] Edwin Morrow, R10.13 Epigastric pain MD Office Visit 10/21/2017 10:45a [facility] Edwin Morrow, Z00.00 Encntr for general MD adult medical exam w/o abnormal findings H61.23 Impacted cerumen, bilateral A09 Infectious gastroenteritis and colitis, unspecified Z68.28 Body mass index (BMI) 28.0-28.9, adult Office Visit 09/29/2017 1:45p [facility] Greer Morrow LAUNDERER HAND R30.0 Dysuria Office Visit 08/13/2017 2:30p [facility] Adeline Lawton PA M54.5 Low back pain M79.671 Pain in RIGHT foot M79.672 Pain in LEFT foot Office Visit 08/10/2017 4:15p [facility] Adeline Lawton PA R19.7 Diarrhea, unspecified Office Visit 07/01/2017 1:00p [facility] Odalys M51.36 Other intervertebral MD Edwin disc degeneration, lumbar region Z01.810 Encounter for preprocedural cardiovascular examination R03.0 Elevated blood-pressure reading, w/o diagnosis of htn E78.00 Pure hypercholesterolemia, unspecified K21.9 Gastro-esophageal reflux disease without esophagitis G60.9 Hereditary and idiopathic neuropathy, unspecified M15.9 Polyosteoarthritis, unspecified R60.9 Edema, unspecified M85.80 Oth disrd of bone density and structure, unspecified site Office Visit 05/14/2017 9:45a [facility] Edwin Morrow, M85.89 Oth disrd of bone MD density and structure, multiple sites Office Visit 02/26/2017 2:30p [facility] Reji Lockhart DO M51.36 Other intervertebral disc degeneration, lumbar region M48.06 Spinal stenosis, lumbar region Office Visit 12/31/2016 1:00p [facility] Edwin Morrow MD R10.13 Epigastric pain R03.0 Elevated blood-pressure reading, w/o diagnosis of htn E78.00 Pure hypercholesterolemia, unspecified M85.80 Oth disrd of bone density and structure, unspecified site M15.9 Polyosteoarthritis, unspecified M51.36 Other intervertebral disc degeneration, lumbar region F33.0 Major depressive disorder, recurrent, mild Office Visit 12/10/2016 4:30p [facility] Edwin Morrow, R10.13 Epigastric pain MD Office Visit 10/09/2016 8:30a [facility] Zehra Linares PA H61.21 Impacted cerumen, RIGHT ear H68.001 Unspecified Eustachian salpingitis, RIGHT ear Office Visit 08/27/2016 11:00a [facility] Edwin Morrow MD Z00.00 Encntr for general adult medical exam w/o abnormal findings Z68.28 Body mass index (BMI) 28.0-28.9, adult F33.0 Major depressive disorder, recurrent, mild M51.36 Other intervertebral disc degeneration, lumbar region R03.0 Elevated blood-pressure reading, w/o diagnosis of htn M85.80 Oth disrd of bone density and structure, unspecified site Office Visit 06/30/2016 1:00p [facility] Edwin Morrow, A09 Infectious MD gastroenteritis and colitis, unspecified R03.0 Elevated blood-pressure reading, w/o diagnosis of htn K21.9 Gastro-esophageal reflux disease without esophagitis E78.0 Pure hypercholesterolemia M85.80 Oth disrd of bone density and structure, unspecified site M51.36 Other intervertebral disc degeneration, lumbar region F33.0 Major depressive disorder, recurrent, mild M15.9 Polyosteoarthritis, unspecified Office Visit 06/23/2016 11:15a [facility] Edwin Morrow, A09 Infectious MD gastroenteritis and colitis, unspecified Office Visit 06/04/2016 11:15a [facility] Edwin Morrow, R21 Rash and other MD nonspecific skin eruption R53.1 Weakness M54.2 Cervicalgia Office Visit 04/29/2016 9:45a Edwin Starks MD R60.9 Edema, unspecified M51.36 Other intervertebral disc degeneration, lumbar region Office Visit 02/19/2016 9:00a [facility] Edwin Morrow MD K62.5 Hemorrhage of anus and rectum M51.36 Other intervertebral disc degeneration, lumbar region Office Visit 02/11/2016 2:00p [facility] Edwin Morrow M51.36 Other intervertebral MD disc degeneration, lumbar region M47.22 Other spondylosis with radiculopathy, cervical region F33.0 Major depressive disorder, recurrent, mild Office Visit 12/24/2015 1:00p [facility] Edwin Morrow, M51.36 Other intervertebral MD disc degeneration, lumbar region R03.0 Elevated blood-pressure reading, w/o diagnosis of htn K21.9 Gastro-esophageal reflux disease without esophagitis M15.9 Polyosteoarthritis, unspecified R60.9 Edema, 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, unspecified M85.80 Oth disrd of bone density and structure, unspecified site F33.0 Major depressive disorder, recurrent, mild Z79.899 Other care home (current) drug therapy E78.0 Pure hypercholesterolemia Office Visit 11/30/2015 3:30p Edwin Starks MD R53.1 Weakness R11.0 Nausea M51.36 Other intervertebral disc degeneration, lumbar region Office Visit 11/28/2015 8:15a Edwin Starks MD R53.1 Weakness R11.0 Nausea Office Visit 11/26/2015 9:30a [facility] Greer Morrow [employer] R53.1 Weakness R53.83 Other fatigue Office Visit 10/11/2015 1:00p [facility] Zehra Linares PA R30.0 Dysuria M54.5 Low back pain Office Visit 09/07/2015 2:15p [facility] Edwin Morrow MD M54.2 Cervicalgia M47.22 Other spondylosis with radiculopathy, cervical region Office Visit 08/07/2015 3:30p [facility] Edwin Morrow MD M54.2 Cervicalgia R20.2 Paresthesia of skin Office Visit 07/26/2015 11:30a [facility] Zehra Linares, 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 Office Visit 06/20/2015 1:00p [facility] Odalys, 272.0 Hypercholesterolemia Pure MD Edwin 530.81 Esophageal Reflux 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 V43.65 Knee Replacement By Other Means V03.82 Streptococcus Pneumoniae Vaccination Spec Other 701.9 Hypertrophic & Atrophic Conditions Of Skin Unspec 733.90 Bone & Cartilage Disorder Unspec 782.3 Edema V76.10 Screening For Malignant Neoplasm Breast Office Visit 05/10/2015 11:15a [facility] Edwin Morrow, 380.4 Impacted Maureen CAMPOVERDE Office Visit 02/12/2015 10:00a [facility] Hannah Wilde MD 466.0 Bronchitis Acute Office Visit 12/20/2014 3:00p [facility] Edwin Morrow, V43.65 Knee Replacement By MD Other Means 300.00 Anxiety State Unspec 530.81 Esophageal Reflux 272.0 Hypercholesterolemia Pure 796.2 Blood Pressure Reading Elevated W/O Hypertension 715.00 Osteoarthrosis Generalized Site Unspec V58.69 Medications Jumpbasting Lining Baster (Current) Use Encounter Plan of Treatment Future Appointment(s):07/19/2019 8:20 am - Schedule, [facility] 1:00 pm - Edwin Morrow [facility]06/03/2019 - Edwin Morrow, MD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, unspecifiedFollow up:Follow up as muakrxczaG36.651 Presence of RIGHT artificial knee rmfefS63.1 Anxiety nmvahK42.26 Body mass index (BMI) 26.0-26.9, adult
--- OUTSIDE RECORDS SUMMARY | 2019-07-31 18:41 | XMS REPORT | Continuity of Care Document ---
:1940 External Reference #:[id number] Author Name Carla Mesa M.D. (transmitted by agent of provider Genny Leone) Address [address] [place] [address] Care Team Providers Name Role Phone Edwin Fish MD - Family Care Team Information Information Assurance Manager Medicine Problems Active Problems Provider Date Localized, primary osteoarthritis Carla Mesa M.D. Onset: 06/16/2018 Arthroplasty of knee Carla Mesa M.D. Onset: 06/16/2018 Instability of internal left knee prosthesis, Carla Mesa M.D. Onset: 08/02 subsequent encounter Knee joint effusion Carla Mesa M.D. Onset: 03/09/2019 Social History Type Date Description Comments Sex Unknown Tobacco Use Start: Unknown Never Smoked Cigarettes Smoking Status Reviewed: 07/13/19 Never Smoked Cigarettes ETOH Use Denies alcohol [...] Medications SIG Qnty Indications Ordering Provider Date Meloxicam 1 by mouth every 14tabs M25.461 Carla Mesa, 07/13/2019 15mg Tablets day M.DMarcello Clindamycin HCL take two tabs 2caps Carla Mesa, 03/18/2019 300mg one hour prior M.D. Capsules to dental work Metamucil as needed Unknown Alendronate Sodium weekly Digiovanna, 70mg MD Edwin Tablets Co-Q 10 Stockwell-3 Fish daily Unknown Oil Stockwell-3 Capsules Multivitamin Adults once daily Unknown Tablets Calcium Carbonate 2 tabs = 1000mg Unknown Antacid 500mg Chewtabs Cranberry Extract Unknown 200mg Capsules Vitamin C ER 1 by mouth every Unknown 500mg day Capsules ER Arthritis Pain Relief 2 tabs by mouth Unknown twice a day 650mg Tablets ER Glucosamine Unknown Chondroitin 1500 Complex 1500Com Capsules Stockwell 3 3 tabs daily Unknown 1000mg Capsules Ondansetron HCL Riri Jules, 4mg MD Tablets Duloxetine HCL Digiovanna, 20mg Caps MD Edwin DR Part History Medications Tramadol HCL 1 tab every 4-6 42tabs Z47.1 Carla Mesa, 05/18/2019 - 50mg hours as needed M.D. 07/12/2019 Tablets for pain Medications Administered in Office Medication SIG Qnty Indications Ordering Provider Date Inj, Regadenoson, 0.1 MG David Rowland M.D. 03/18/2019 Injection Technetium TC 99M TetrofosminDavid M.D. 03/18/2019 Per Unit Dose Up To 40 Millicuries Injection Technetium TC 99M TetrofosminDavid M.D. 03/18/2019 Per Unit Dose Up To 40 Millicuries Injection Immunizations Description No Information Available Vital Signs Date Vital Result Comment 07/13/2019 12:04pm Height 60 inches 5'0" Weight 148.00 lb Heart Rate 80 /min BP Systolic 122 mmHg BP Diastolic 62 mmHg Body Temperature 99.0 F Pain Level 3 BMI (Body Mass Index) 28.9 kg/m2 06/01/2019 11:40am Height 60 inches 5'0" Heart Rate 88 /min BP Systolic 138 mmHg BP Diastolic 80 mmHg Respiratory Rate 18 /min Body Temperature 97.9 F Pain Level 0 Results Test Date Facility Test Result H/L Range Note Type & Screen 04/18/2019 [facility] Patient Blood O Positive [address] [place] [address] [phone] Antibody Screen NEGATIVE Inr/Protime 03/09/2019 [facility] Inr 0.95 Normal 0.82-1.[address] [place] [address] [phone] Laboratory test 03/09/2019 [facility] Partial 28.8 Normal 26.0 -36.[address] [place] [address] Time PTT [phone] Type & Screen 03/09/2019 [facility] Patient O Positive [address] [place] [address] [phone] Antibody Screen NEGATIVE Urinalysis Profile 03/09/2019 [facility] Urine Color Yellow [address] [place], [place] [address] [phone] Urine Appearance Cloudy Urine Specific Beatrice 1.015 Normal 1.010-1.030 Urine pH 7.0 Normal 5-9 Urine Urobilinogen Negative Negative Urine Ketones [...] Present Abnormal Absent Urine Culture And 03/09/2019 [facility] Urine Culture SEE RESULT [address] [place] [address] [phone] 1 PAIN IN RIGHT KNEE, EFFUSION, RIGHT KNEE, UNILATER 2 Standard intensity warfarin therapeutic range: 2.0-3.0 High intensity warfarin therapeutic range: 2.5-3.5 3 *Ascorbic acid is present which may interfere with detection of blood. 4 SEE RESULT BELOW Name: YULIYA MADRID DOB: [address]: Carla Mesa MD Acct: [id number] Unit: [id number] AGE: 78 Location: PAT Re03/09/19 SEX: F Status: REG REF SPEC: [id number] FIORDALIZA: 03/09/[address] [facility] [address]: Carla Mesa MD REQ: [id number] RECD: 03/09/19 STATUS: COMP OTHR DR: Edwin Fish Jr, MD _ SOURCE: URINE SPDESC: ORDERED: Urine Culture QUERIES: Urine Source: Clean Catch Procedure Result Reported Site Urine Culture Final 03/10/19- 1204 ML No Growth (<1,000 CFU/mL) * ML - Main Lab . END OF REPORT DEPARTMENT OF PATHOLOGY, [address] [place] [address] Landen Pittman M.D. Director [facility] # [id number] Procedures Date Code Description Status 04/28/2019 25913 TKR Total Knee Replacement Completed 04/28/2019 59733 TKR Total Knee Replacement Completed 03/18/2019 06355 Stress Test Completed 03/18/2019 81832 Myocardial Perfusion Imaging Tomographic (Spect) Multiple Completed Studies 03/16/2019 49311 EKG Tracing & Interpretation Completed Medical Devices Description No Information Available Encounters Type Date Location Provider Dx Diagnosis Office Visit 07/13/2019 [facility] Carla Mesa M25.561 Pain in right 11:30a [facility] knee M25.461 Effusion, right knee Z96.651 Presence of right artificial knee joint Office Visit 03/16/2019 [facility] David Jackson R94.31 Abnormal 8:30a [facility] electrocardiogram [employer] [ECG] [EKG] Z01.810 Encounter for preprocedural cardiovascular examination I10 Essential (primary) hypertension M17.11 Unilateral primary osteoarthritis, right knee Office Visit 01/26/2019 9:30a [facility] Carla Mesa M25.561 Pain in right [facility] knee M25.461 Effusion, right knee M17.11 Unilateral primary osteoarthritis, right knee 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 07/13/2019 M25.461 Effusion, right knee Carla Mesa M.D. 07/13/2019 Z96.651 Presence of right artificial knee joint Carla Mesa M.D. 06/01/2019 Z47.1 Aftercare following joint replacement Carla Mesa M.D. surgery 06/01/2019 Z96.651 Presence of right artificial knee joint Carla Mesa M.D. 06/01/2019 M25.561 Pain in right knee Carla Mesa M.D. 06/01/2019 M25.461 Effusion, right knee Carla Mesa M.D. 05/18/2019 Z47.1 Aftercare following joint replacement Carla Mesa M.D. surgery 05/18/2019 Z96.651 Presence of right artificial knee joint Carla Mesa M.D. 05/09/2019 Z47.1 Aftercare following joint replacement HUGH Montgomery surgery 05/09/2019 Z96.651 Presence of right artificial knee joint HUGH Montgomery 05/01/2019 Z47.1 Aftercare following joint replacement Belen Lise, RPA-C surgery 05/01/2019 Z96.652 Presence of left artificial knee joint Belen Rexford, RPA- C 04/30/2019 Z47.1 Aftercare following joint replacement Belen Rexford, RPA-C surgery 04/30/2019 Z96.651 Presence of right artificial knee joint Belen Lise, RPA -C 04/29/2019 Z47.1 Aftercare following joint replacement Lucinda Lisick, RPA-C surgery 04/29/2019 Z96.651 Presence of right artificial knee joint Lucinda Lissimon, RPA -C 04/28/2019 M17.11 Unilateral primary osteoarthritis, right Lucinda Eugenie, RPA -C knee 04/28/2019 M17.11 Unilateral primary osteoarthritis, right Carla Mesa M.D. knee 04/18/2019 M25.561 Pain in right knee Carla Mesa M.D. 04/18/2019 M17.11 Unilateral primary osteoarthritis, right Carla Mesa M.D. knee 04/18/2019 M25.461 Effusion, right knee Carla Mesa M.D. 03/18/2019 R94.31 Abnormal electrocardiogram [ECG] [EKG] David Rowland M.D. 03/16/2019 R94.31 Abnormal electrocardiogram [ECG] [EKG] David Rowland M.D. 03/16/2019 Z01.810 Encounter for preprocedural cardiovascular David Rowland M.D. examination 03/16/2019 I10 Essential (primary) hypertension David Rowland M.D. 03/16/2019 M17.11 Unilateral primary osteoarthritis, right David Rowland M.D. knee 03/09/2019 M25.561 Pain in right knee Carla Mesa M.D. 03/09/2019 M17.11 Unilateral primary osteoarthritis, right Carla Mesa M.D. knee 03/09/2019 M25.461 Effusion, right knee Carla Mesa M.D. 01/26/2019 M25.561 Pain in right knee Carla Mesa M.D. 01/26/2019 M25.461 Effusion, right knee Carla Mesa M.D. 01/26/2019 M17.11 Unilateral primary osteoarthritis, right Carla Mesa M.D. knee 01/26/2019 T84.023D Instability of internal left knee Carla Mesa M.D. prosthesis, subsequent enc 01/26/2019 M25.562 Pain in left knee Carla Mesa M.D. 01/26/2019 Z96.652 Presence of left artificial knee joint Carla Mesa M.D. Plan of Treatment Future Appointment(s):10/12/2019 11:15 am [facility] - Carla Mesa M.D.M25.561 Pain in right kneeFollow up:Follow up: 3 wpmawxC09.461 Effusion, right kneeNew Medication: Meloxicam 15 mg - 1 by mouth every dayZ96.651 Presence of right artificial knee jointNew Xrays:Kneeright 4+ VWS, Ordered: 07/13/19 Functional Status Description No Information Available Mental Status Description No Information Available Referrals Description No Information Available
[2019-07-31 18:43] VITALS: BP 157/73
--- NOTE | 2019-07-31 19:04 | UC ---
Dizzy HPI HPI Summary: episode of loss of vision-while driving at 6pm tonight-pulled over and called her friends to come and get her---symptoms are resolved at this time---denies chest pain sob, subjective feeling of arrhythmia-at this time all symptoms have resolved, never had similar sx in the past - History Of Current Complaint Chief Complaint: UCEye Stated Complaint: VISION CHANGES Time Seen by Provider: 07/31/19 18:49 Hx Obtained From: Patient Hx Last Menstrual Period: n/a ?: No Onset/Duration: Sudden Onset, Resolved, Other - occured about 1 hour ago Pain Intensity: 0 Character: Lightheaded - with vision loss Aggravating Factor(s): Nothing Alleviating Factor(s): Nothing Associated Signs And Symptoms: Positive: Negative - Allergies/Home Medications Allergies/Adverse Reactions: Allergies Allergy/AdvReac Type Severity Reaction Status Date / Time doxycycline Allergy Severe GI Upset Verified 07/31/19 18:43 sulfamethoxazole Allergy Severe Pain Verified 07/31/19 18:43 [From Bactrim] trimethoprim [From Bactrim] Allergy Severe Pain Verified 07/31/19 18:43 Iodinated Contrast Media Allergy Intermediate Itching Verified 07/31/19 18:43 [Iodinated Contrast- Oral and IV Dye] oxycodone Allergy Intermediate Itching Verified 07/31/19 18:43 amoxicillin Allergy Unknown Rash Verified 07/31/19 18:43 nitrofurantoin Allergy Unknown Unknown Verified 07/31/19 18:43 Reaction Details lactose Allergy Diarrhea Verified 07/31/19 18:43 Flu vaccine Allergy Severe See Comment Uncoded 07/31/19 18:43 Hydrocodone 7.5/ Ibuprofen Allergy Unknown Unknown Uncoded 07/31/19 18:43 200 Reaction Details Home Medications: Home Medications Clindamycin HCl 600 mg PO SEE INSTRUCTIONS 07/31/19 [History Confirmed 07/31/19] PMH/Surg Hx/FS Hx/Imm Hx Previously Healthy: Yes - Surgical History Surgical History: Yes Surgery Procedure, Year, and Place: Right knee surgery 2019 07/16/2017 L4 L5 plate screw and shay done at [facility] metal is present; Appendectomy, 1957. Tubal Ligation, 1976. L5 S1 Partial Discectomy, 1978. Breast Reduction, 2001. Left and Right Shoulder Surgeries "from repetitive", 2002 and 2004. Right Carpal Tunnel Release and Tendon Repair, 2006. Total left Knee replacement. Bunion and Toes Surgeries - Family History Known Family History: Positive: None Negative: Cardiac Disease, Hypertension - Social History Occupation: Employed Part-time, Retired Lives: Alone Alcohol Use: Occasionally Alcohol Amount: 1 q 2 months Substance Use Type: None Smoking Status (MU): Never Smoked Tobacco - Immunization History Most Recent Influenza Vaccination: "Allergic" Most Recent Pneumonia Vaccination: past Review of Systems All Other Systems Reviewed And Are Negative: Yes Constitutional: Positive: Negative Skin: Positive: Negative Eyes: Positive: Blurred Vision - loss of vision ENT: Positive: Negative Respiratory: Positive: Negative Cardiovascular: Positive: Negative Gastrointestinal: Positive: Negative Genitourinary: Positive: Negative Motor: Positive: Negative Neurovascular: Positive: Negative Musculoskeletal: Positive: Negative Neurological: Positive: Negative Psychological: Positive: Negative Is Patient Immunocompromised?: No Physical Exam Triage Information Reviewed: Yes Appearance: Well-Appearing, No Pain Distress, Well-Nourished Vital Signs: Initial Vital Signs Temp 99.9 F 07/31/19 18:38 Pulse 84 07/31/19 18:38 Resp 20 07/31/19 18:38 BP 157/73 07/31/19 18:38 Pulse Ox 96 07/31/19 18:38 Vital Signs Reviewed: Yes Eye Exam: Normal Eyes: Positive: Conjunctiva Clear, Other: - perrla, eomi ENT Exam: Normal ENT: Positive: Normal ENT inspection, Hearing grossly normal, Pharynx normal, TMs normal, Sinus tenderness, Uvula midline. Negative: Nasal congestion, Tonsillar swelling, Tonsillar exudate, Trismus, Muffled voice, Hoarse voice, Dental tenderness Dental Exam: Other - some missing teeth Neck exam: Normal Neck: Positive: Supple, Nontender, No Lymphadenopathy Respiratory Exam: Normal Respiratory: Positive: Chest non-tender, Lungs clear, Normal breath sounds, No respiratory distress, No accessory muscle use Cardiovascular Exam: Normal Cardiovascular: Positive: RRR, No Murmur, Pulses Normal, Brisk Capillary Refill Musculoskeletal Exam: Normal Musculoskeletal: Positive: Strength Intact, ROM Intact, No Edema Neurological Exam: Normal Neurological: Positive: Alert, Muscle Tone Normal, Other: - rhomberg wnl, no pronator drift, steady gait, Psychological Exam: Normal Diagnostics - EKG Cardiac Rhythm: Sinus: Normal - non specific t wave inversion--no change from last ECG Ectopy: None ST Segment: Non-Specific EKG Comparison: No Significant Change Dizzy Course/Dx - Course Course Of Treatment: sign out AMA--to ED for assessment of vision loss- - Differential Dx/Diagnosis Provider Diagnosis: TIA (transient ischemic attack) Discharge ED - Sign-Out/Discharge Documenting (check all that apply): Patient Departure All imaging exams completed and their final reports reviewed: No Studies - Discharge Plan Condition: Fair Disposition: HOME-RECOMMEND TO ED Patient Education Materials: Blurred Vision (ED) Referrals: Edwin Morrow MD [Primary Care Provider] - - Billing Disposition and Condition Condition: FAIR Disposition: Home-Recommend to ED
== END 2019-07-31 19:37 | disposition home health service (06) ==
LOC: UCEAST 18:34
DX: G45.9 Transient cerebral ischemic attack, unspecified (principal); Z88.2 Allergy status to sulfonamides
CPT/HCPCS: 99212; G0463

== ENCOUNTER 2019-07-31 19:53 | Observation (INO) | payer MEDICARE ==
--- NOTE | 2019-07-31 20:18 | ED ---
Throat Pain/Nasal Congestion - HPI Summary HPI Summary: Physician in room at 2009. The patient is a 78 y/o F presenting to [facility] from [facility] with a chief complaint of binocular visual changes occurring at 1810 tonight. She reports that she had been driving and suddenly had a hoyos-fransico field of vision in both eyes, so she pulled off to the side of the road and called her friends where she had been driving from. She also had diplopia, and she notes that the episode was not the same as what her vision is like when she takes her glasses off, which she doesnt need for driving. She denies any headaches, nausea, vomiting, lightheadedness, or dizziness. Her vision is currently normal rated 0/ 10 in severity, but the changes lasted for about 20 minutes. She states that the only similar experience to this shes had is described as when you can see the heat waves coming off of the pavement. PMHx: spinal stenosis with surgery, bilateral knee replacements, arthritis. No neurological hx. FHx: stroke in father, blood clots in brother, blood clots in nephew. Nonsmoker, occasional EtOH, no substance use. Medications reviewed. Allergies noted. Code-soha called at 2023. - History of Current Complaint Chief Complaint: EDEyeProblem Time Seen by Provider: 07/31/19 20:08 Hx Obtained From: Patient Onset/Duration: Sudden Onset, Lasting Minutes - 20, Resolved Severity: Moderate Cough: None Related History: Other (Noted In Comments) - glasses as need (not for driving) - Allergies/Home Medications Allergies/Adverse Reactions: Allergies Allergy/AdvReac Type Severity Reaction Status Date / Time doxycycline Allergy Severe GI Upset Verified 07/31/19 20:24 Influenza Virus Vaccines Allergy Severe See Comment Verified 08/01/19 04:10 sulfamethoxazole Allergy Severe Pain Verified 07/31/19 20:24 [From Bactrim] trimethoprim [From Bactrim] Allergy Severe Pain Verified 07/31/19 20:24 Iodinated Contrast Media Allergy Intermediate Itching Verified 07/31/19 20:24 [Iodinated Contrast- Oral and IV Dye] oxycodone Allergy Intermediate Itching Verified 07/31/19 20:24 amoxicillin Allergy Unknown Rash Verified 07/31/19 20:24 hydrocodone [From Vicoprofen] Allergy Unknown Unknown Verified 08/01/19 04:10 Reaction Details ibuprofen [From Vicoprofen] Allergy Unknown Unknown Verified 08/01/19 04:10 Reaction Details nitrofurantoin Allergy Unknown Unknown Verified 07/31/19 20:24 Reaction Details lactose Allergy Diarrhea Verified 07/31/19 20:24 Home Medications: Home Medications Calcium 500 + Vit D Caplet 1,200 mg PO BID 07/31/19 [History Confirmed 07/31/19] National Institutes Of Health - NIH Scale Level of Consciousness: Alert/Keenly Responsive Ask Patient the Month and His/Her Age: Both Correct Ask Pt to Open/Close Eyes and 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/Release Non-Paretic Hand: Both Correctly Best Gaze (Only Horizontal Eye Movement): Normal Visual Field Testing: No Visual Loss Facial Paresis-Pt to Smile & Close Eyes or Grimace Symmetry: Normal/Symmetrical Motor Function - Right Arm: No Drift-Holds 10 Seconds Motor Function - Left Arm: No Drift-Holds 10 Seconds Motor Function - Right Leg: No Drift-Holds 10 Seconds Motor Function - Left Leg: No Drift-Holds 10 Seconds Limb Ataxia-Must be out of Proportion to Weakness Present: Absent Sensory (Use Pinprick to Test Arms/Legs/Trunk/Face): Normal Best Language (Describe Picture, Name Items): No Aphasia Dysarthria (Read Several Words): Normal Extinction and Inattention: No Abnormality Total Score: 0 PMH/Surg Hx/FS Hx/Imm Hx Endocrine/Hematology History: Denies: Hx Diabetes, Hx Thyroid Disease Cardiovascular History: Reports: Other Cardiovascular Problems/Disorders - had a chemical stress test- good Denies: Hx Hypertension, Hx Pacemaker/ICD Respiratory History: Denies: Hx Asthma, Hx Chronic Obstructive Pulmonary Disease (COPD), Other Respiratory Problems/Disorders GI History: Reports: Hx Irritable Bowel - weak muscles, Other GI Disorders - has polyps Denies: Hx Gastroesophageal Reflux Disease - none lately, Hx Ulcer History: Denies: Hx Renal Disease Musculoskeletal History: Reports: Hx Arthritis - right knee, ankles, back Denies: Other Musculoskeletal History Sensory History: Reports: Hx Contacts or Glasses - glasses Denies: Hx Hearing Aid Opthamlomology History: Reports: Hx Contacts or Glasses - glasses Neurological History: Reports: Hx Nerve Disease - spinal stenosis Psychiatric History: Denies: Hx Panic Disorder - Cancer History Hx Chemotherapy: No - Surgical History Surgical History: Yes Surgery Procedure, Year, and Place: Right knee surgery 2019 07/16/2017 L4 L5 plate screw and shay done at [facility] metal is present; Appendectomy, 1957. Tubal Ligation, 1976. L5 S1 Partial Discectomy, 1978. Breast Reduction, 2001. Left and Right Shoulder Surgeries "from repetitive", 2002 and 2004. Right Carpal Tunnel Release and Tendon Repair, 2006. Total left Knee replacement. Bunion and Toes Surgeries Hx Anesthesia Reactions: No Infectious Disease History: No Infectious Disease History: Denies: Hx Clostridium Difficile, Hx Hepatitis, Hx Human Immunodeficiency Virus (HIV), Hx of Known/Suspected MRSA, Hx Shingles, Hx Tuberculosis, History Other Infectious Disease, Traveled Outside the in Last 30 Days - Family History Known Family History: Positive: Other - stroke in father, blood clots in brother , blood clots in nephew Negative: Cardiac Disease, Hypertension, Diabetes - Social History Alcohol Use: Occasionally Alcohol Amount: 1 q 2 months Hx Substance Use: No Substance Use Type: Reports: None Hx Tobacco Use: No Smoking Status (MU): Never Smoked Tobacco Review of Systems Positive: Blurred Vision - "hoyos-fransico", Diplopia Negative: Vomiting, Nausea Neurological: Other - Negative: dizziness, lightheadedness. All Other Systems Reviewed And Are Negative: Yes Physical Exam - Summary Physical Exam Summary: Appearance: Well-appearing, Well-nourished, lying in bed comfortably Skin: Warm, dry, no obvious rash Eyes: sclera anicteric, no conjunctival pallor ENT: mucous membranes moist, pharynx appears normal Neck: Supple, nontender Respiratory: Clear to auscultation, no signs of respiratory distress Cardiovascular: Normal S1, S2. No murmurs. Normal distal pulses in tibial and radial bilaterally. Abdomen: Soft, nontender, normal active bowel sounds present Musculoskeletal: Normal, Strength/ROM Intact Neurological: A&Ox3, awake and alert, mentation is normal, speech is fluent and appropriate, Level of consciousness nml. The patient is alert and oriented. Cranial nerves are grossly intact. Gaze is conjugate and without nystagmus. Peripheral vision is intact to confrontation. There are no gross sensory abnormalities to light touch. There is no truncal or fine motor ataxia. Gait is normal. NIH: 0. GCS: 0. Psychiatric: affect is normal, does not appear anxious or depressed Triage Information Reviewed: Yes Vital Signs On Initial Exam: Initial Vitals Temp Pulse Resp BP Pulse Ox 98.8 F 84 15 147/79 94 07/31/19 19:54 07/31/19 19:54 07/31/19 19:54 07/31/19 19:54 07/31/19 19:54 Vital Signs Reviewed: Yes - Helen Coma Scale Best Eye Response: 4 - Spontaneous Best Motor Response: 6 - Obeys Commands Best Verbal Response: 5 - Oriented Coma Scale Total: 15 Diagnostics - Vital Signs Vital Signs Temp Pulse Resp BP Pulse Ox 07/31/19 19:54 98.8 F 84 15 147/79 94 - Laboratory Result Diagrams: 08/01/19 04:32 08/01/19 04:32 Lab Statement: Any lab studies that have been ordered have been reviewed, and results considered in the medical decision making process. - Radiology CXR Radiology Interpretation Completed By: ED Physician Summary of Radiographic Findings: No acute process. ED physician has interpreted this report. Pending official report. - CT Brain CT CT Interpretation Completed By: Radiologist Summary of CT Findings: Impression: 1. Minimal chronic ischemic white matter change and mild atrophy. 2. Otherwise negative noncontrast head CT. [facility] Stroke Program Early CT Score (ASPECTS) = 10/10. ED physician has reviewed this imaging report. Head/Neck CTA CT Interpretation Completed By: Radiologist Summary of CT Findings: Impression: 1. Minimal sphenoid and ethmoid sinus disease. 2. Negative CTA neck. 0% stenosis and no occlusion. ED physician has reviewed this imaging report. - EKG 2040 Cardiac Rate: NL - 87 bpm EKG Rhythm: Sinus Rhythm Summary of EKG Findings: NSR at 87 BPM, P waves, QRS complex, and T waves are within normal limits, T waves and intervals are normal, no ischemic changes. This is a normal EKG. ED physician has reviewed and interpreted this EKG. Re-Evaluation - Re-Evaluation First Eval Re-Evaluation Time: 00:30 Comment: Pt aware of plan for admission. EENT Course/Dx - Course Course Of Treatment: Chidi called at 2023. Pt is a 78 y/o F with cc of sudden onset binocular vision changes noted as a hoyos-fransico color and diplopia experience today at 1810 lasting for 20 minutes without any other associated symptoms including headaches, dizziness, lightheadedness, nausea, or vomiting. FHx of stroke and multiple blood clots. Upon physical exam, the pt exhibits no acute abnormalities including on extended neuro exam. In the ED course, the pt was administered fluids. Blood work reveals MCH of 32, BUN of 25, BUN of 25, BUN /Creatinine ratio of 34.7, glucose of 117, alkaline phosphatase of 106, triglycerides of 416, and LDL cholesterol direct of 117. EKG at 2040 reveals NSR at 87 BPM without any ischemic changes. [facility] notified me of Brain CT results at 2114. Brain CT impression reveals minimal ischemic white matter changes and mild atrophy but is otherwise negative. Telestroke initiated with neuro stroke at [place] at 2115. At 2131, I spoke with Dr. Walter from [facility], who recommends that the pt stay at [facility]. She is not TPA considered at this time. She is administered Solu-Medrol and Benadryl in the ED. Chest x-ray is negative, per my interpretation. Head/Neck CTA impression reveals Minimal sphenoid and ethmoid sinus disease. I discussed the pt's case with Dr. Almonte, hospitalist, and he accepts the pt for admission. Pt understands and agrees with this plan. Dx is TIA. - Diagnoses Provider Diagnoses: TIA (transient ischemic attack) During the Visit The Following Alert/Code Occurred: Code Hoyos - called at 2023 - Provider Notifications Discussed Care Of Patient With: Yash Walter - neurology, stroke [place] Time Discussed With Above Provider: 21:32 Instructed by Provider To: Other - I discussed the pt's case with Dr. Walter, and he will look at the pt's imaging reports, but recommends stay at [facility] at this time. At 99, I discussed the pt's case with Dr. Almonte, hospitalist, and he accepts the pt for admission. Discharge ED - Sign-Out/Discharge Documenting (check all that apply): Patient Departure - Patient accepted for admission by Dr. Almonte. Patient Received Moderate/Deep Sedation with Procedure: No - Discharge Plan Condition: Stable Disposition: ADMITTED TO [facility] - Billing Disposition and Condition Condition: STABLE Disposition: Admitted to [facility] - Attestation Statements Document Initiated by Scribe: Yes Documenting Scribe: Virgie Bueno Provider For Whom Scribe is Documenting (Include Credential): Dr. Elmer Amaya MD Scribe Attestation: IVirgie, scribed for Dr. Elmer Amaya MD on 08/01/19 at 1826. Scribe Documentation Reviewed: Yes Provider Attestation: The documentation as recorded by the Virgie rand accurately reflects the service I personally performed and the decisions made by me, Dr. Elmer Amaya MD Status of Scrdonavon Document: Viewed
[2019-07-31] MEDS ORDERED: NS 0.9% 1000 ML** 1,000 ML IV ONE (20:23)
[2019-07-31 20:51] LABS: ABS Basophils 0.1 10^3/ul (0-0.2); ABS Eosinophils 0.1 10^3/ul (0-0.6); ABS Lymphocytes 2.3 10^3/ul (1.0-4.8); ABS Monocytes 0.5 10^3/ul (0-0.8); ABS Neutrophils 3.3 10^3/ul (1.5-7.7); Eosinophil % 2.4 %; Hematocrit 40 % (35-47); Hemoglobin 13.7 g/dL (12.0-16.0); Lymphocyte % 36.3 %; Mean Corpuscular HGB Conc 35 g/dL (31-36); Mean Corpuscular Hemoglobin 32 pg (27-31); Mean Corpuscular Volume 94 fL (80-97); Mean Platelet Volume 8.5 fL (7.4-10.4); Nucleated Red Blood Cells % 0.2; Platelet Count 227 10^3/uL (150-450); Red Blood Count 4.24 10^6 /uL (3.70-4.87); Red Cell Distribution Width 13 % (10-15); White Blood Count 6.4 10^3/uL (3.5-10.8)
[2019-07-31 20:59] LABS: Activated Partial Thrombo Time 31.7 seconds (26.0-38.0); INR 0.97 (0.82-1.09)
[2019-07-31 21:09] LABS: ALT 11 U/L (7-52); Albumin 3.8 g/dL (3.2-5.2); Albumin/Globulin Ratio 1.3 (1-3); Alkaline Phosphatase 106 U/L (34-104); BUN/Creatinine Ratio 34.7 (8-20); Blood Urea Nitrogen 25 mg/dL (6-24); CO2 Carbon Dioxide 27 mmol/L (22-32); Calcium 9.4 mg/dL (8.6-10.3); Chloride 105 mmol/L (101-111); Cholesterol 180 mg/dL; EGFR African American 95.3 (>60); EGFR Non-African American 78.8 (>60); Globulin 2.9 g/dL (2-4); Glucose 117 mg/dL (70-100); HDL Cholesterol 37.9 mg/dL; Sodium 138 mmol/L (135-145); Total Protein 6.7 g/dL (6.4-8.9); Triglycerides 416 mg/dL
[2019-07-31 21:11] LABS: Troponin I 0.01 ng/mL (<0.04)
[2019-07-31 21:25] LABS: LDL Cholesterol Direct 117 mg/dL
[2019-07-31 21:27] LABS: Anion Gap 6 mmol/L (2-11)
[2019-07-31] MEDS ORDERED: diPHENhydraMINE IV* 50 MG/ML 1 ml VIAL (BENADRYL) SLOW PUSH ONE (21:43)
[2019-07-31] MEDS ORDERED: methylPREDNISolone 125 MG* 2 ML VIAL IV ONE (21:43)
[2019-07-31] MEDS ORDERED: Iodixanol* (CONTRAST) 320 MG/ML 100 ML SDV IV ONE (22:33)
[2019-08-01 01:15] LABS: Potassium Redraw 4.1 mmol/L (3.5-5.0)
[2019-08-01] MEDS ORDERED: Calcium Carbonate TAB* 1250 MG (CALCIUM 500 MG) PO PRN (03:59)
[2019-08-01] MEDS ORDERED: Lactated Ringers 1000 ML Bag* 1,000 ML IV ONE (04:00)
[2019-08-01 04:43] LABS: Urine Appearance Clear; Urine Bilirubin Negative (Negative); Urine Blood Negative (Negative); Urine Color Straw; Urine Glucose Negative (Negative); Urine Ketones Negative (Negative); Urine Nitrite Negative (Negative); Urine Protein Negative (Negative); Urine Specific Gravity 1.034 (1.010-1.030); Urine Urobilinogen Negative (Negative)
[2019-08-01 04:53] LABS: ABS Lymphocytes 0.7 10^3/ul (1.0-4.8); ABS Neutrophils 3.6 10^3/ul (1.5-7.7); Hematocrit 42 % (35-47); Hemoglobin 14.4 g/dL (12.0-16.0); Lymphocyte % 16.3 %; Mean Corpuscular HGB Conc 34 g/dL (31-36); Mean Corpuscular Hemoglobin 32 pg (27-31); Mean Corpuscular Volume 94 fL (80-97); Mean Platelet Volume 8.6 fL (7.4-10.4); Platelet Count 228 10^3/uL (150-450); Red Blood Count 4.48 10^6 /uL (3.70-4.87); Red Cell Distribution Width 13 % (10-15); White Blood Count 4.4 10^3/uL (3.5-10.8)
[2019-08-01 05:11] LABS: BUN/Creatinine Ratio 27.9 (8-20); Calcium 8.8 mg/dL (8.6-10.3); EGFR African American 101.8 (>60); EGFR Non-African American 84.1 (>60); Potassium 4.2 mmol/L (3.5-5.0)
[2019-08-01] MEDS ORDERED: Enoxaparin(*) 40 MG/0.4 ML SYR SUBCUT SCH (06:00)
[2019-08-01] MEDS ORDERED: Acetaminophen TAB* 325 MG PO SCH (06:00)
[2019-08-01] MEDS ORDERED: Acetaminophen TAB* 325 MG PO PRN (07:00)
--- NOTE | 2019-08-01 07:07 | HP ---
CC: Dr. Edwin Fish * ADMISSION HISTORY AND PHYSICAL: DATE OF ADMISSION: 08/01/19 CHIEF COMPLAINT: Blurry and double vision. HISTORY OF PRESENT ILLNESS: This is a 78-year-old female with past medical history of osteoporosis and osteoarthritis, status post multiple surgeries including bilateral total knee arthroplasties, was brought into the ER after she experienced blurriness and double vision. The patient stated that she was in her unusual state of health, was driving for 10 minutes towards her house, at which point all of a sudden she had blurry vision double vision, at which point she pulled her car to the side of the road and calls her friends for help. This happened around 6:10 p.m. and lasted about 10 to 15 minutes. She tried to close one eye and see if the other eye was any better at vision, but both eye individually were also blurry and she is not sure if the double vision was present in each eye individually or together as she did not focus on that. The patient stated that the double vision was not just isolated to one direction , it was just present all throughout. She denies any accompanying nausea, vomiting, headache, lightheadedness, dizziness, any chest pain, shortness of breath. She stated that gradually over the next 15 to 20 minutes her vision returned to her normal. By the time she had come to the ER, her vision had gone back to normal. She does have a history of cataracts, but she has not had any surgeries for that. PAST MEDICAL HISTORY: As mentioned, just osteoporosis and osteoarthritis. PAST SURGICAL HISTORY: She has had an appendectomy, tubal ligation, lumbar diskectomy and fusion, right foot bunionectomy, breast reduction surgery, bilateral shoulder arthroscopies, right thumb surgery, bilateral total knee arthroplasties, HOME MEDICATIONS: The patient is only taking over the counter: 1. Three fish oils oral daily. 2. Multivitamins oral daily. 3. Calcium carbonate twice a day for indigestion as needed along with calcium with vitamin D 1200 mg twice a day 4. Alendronate 1 tablet every week. 5. Tylenol p.r.n. for pain. 6. She has also been prescribed meloxicam p.r.n. for pain. 7. Clindamycin 600 mg prior to any dental procedures to prevent any septic infection to the prosthetic devices. ALLERGIES: The patient is documented to have allergies to DOXYCYCLINE, BACTRIM , IODINATED CONTRAST MEDIUM, OXYCODONE, AMOXICILLIN, NITROFURANTOIN, LACTULOSE, FLU VACCINE, HYDROCODONE and IBUPROFEN. FAMILY HISTORY: Significant for her father having stroke and a cerebellar hemorrhage causing his at age 82. Mother at age 90 with some heart problems. There is significant family history of factor V related DVT in her brother, as well as in her cousin. SOCIAL HISTORY: The patient lives alone. Denies any smoking, alcohol, or drug use. She is full code and her daughter, Tania and her son, Glen are both healthcare proxies with Tania being primary and Glen being secondary, but she wishes them both to discuss and make the decisions jointly. She has also written a DNR in her healthcare proxy form, which is only if she has a stroke, where she has a vestibule, but otherwise is a full code. REVIEW OF SYSTEMS: A 14-point review of systems did not reveal any new information other than what is mentioned in the HPI. PHYSICAL EXAMINATION GENERAL: The patient is awake, alert, and oriented x3, did not appear to be in any acute respiratory distress. VITAL SIGNS: BP was noted to be 143/73, temperature 98.1, heart rate 72, respiratory rate 18, saturating 95% on room air. HEAD AND NECK: Atraumatic, normocephalic. Bilateral pupils are reactive. There is clear evidence of cataract on each eye. Oral mucosa was moist. Neck: Supple. No jugular venous distention. LUNGS: Clear to auscultation bilaterally. No wheezing, rhonchi, or rales. HEART: S1, S2. Regular rate and rhythm. ABDOMEN: Soft, nontender, nondistended. EXTREMITIES: The patent did have some swelling and redness on the right knee, which has been present according to the patient since her knee surgery. DIAGNOSTIC STUDIES/LAB DATA: CBC was unremarkable. Coagulation profile was normal with INR of 0.97. Comprehensive metabolic panel was unremarkable except for minimally elevated BUN at 25 with the BUN and creatinine ratio of 34.7. Random glucose minimally elevated at 117, lactic acid was noted to be normal at 1.2. LFTs within normal limits. Cholesterol was noted to be elevated at 117 and triglycerides was elevated at 416, alkaline phosphatase minimally elevated at 106. EKG shows rhythm at 87 beats per minute when compared to her older EKG available from 2004. The wave form appears to be similar although previous EKG did show some premature ventricular contraction. CT brain was showing minimal chronic ischemic white matter change in mild atrophy. Otherwise, normal. CTA of the head shows minimal sphenoid and ethmoid sinus disease and negative CTA with 0% stenosis no occlusion in the brain. Angiography of the neck also shows a negative CTA of the neck with 0% stenosis and no occlusion. Portable chest x-ray was noted to be within normal limits. IMPRESSION: This is a 78-year-old female with no significant past medical history came in with 15 to 20 minute episode of blurry vision and diplopia likely transient ischemic attack. ASSESSMENT AND PLAN: 1. Transient ischemic attack. We will get an MRI in the morning along with an echocardiogram and carotid Duplex and monitor the patient on telemetry and continue with neuro-checks. Can consider Neurology consultation in the morning. It is a possibility that the patient may be dehydrated. We will continue with hydration especially in light of her prerenal azotemia and given her family history of factor V deficiency, we will check the factor V activity level. We will start the patient on aspirin starting tomorrow. 2. Prerenal azotemia. Continue with IV hydration. 3. Elevated triglycerides and minimally elevated LDL cholesterol. We will start the patient on low-dose statin. 4. History of osteoarthritis. We will restart the patient on some pain medications p.r.n. 5. Elevated random glucose. We will check an A1c level to rule out any underlying diabetes. 6. DVT prophylaxis with subcu Lovenox. 7. Code status is full code with the kids being healthcare proxy. [id number]/[facility] #: [id number] TIGIST
--- NOTE | 2019-08-01 08:45 | PN ---
Hospitalist Progress Note Date of Service: 08/01/19 Subjective: Patient said she is feeling good. She has had no blurry vision or double vision today. No acute overnight events occurred. Objective: Physical Exam: GENERAL: The patient is awake, alert, and oriented x3, did not appear to be in any acute respiratory distress. VITAL SIGNS: BP was noted to be 122/78, temperature 97.5, heart rate 69, respiratory rate 19, saturating 97% on room air. HEAD AND NECK: Atraumatic, normocephalic. Bilateral pupils are reactive. There is clear evidence of cataract on each eye. Oral mucosa was moist. Neck: Supple. No jugular venous distention. LUNGS: Clear to auscultation bilaterally. No wheezing, rhonchi, or rales. HEART: S1, S2. Regular rate and rhythm. ABDOMEN: Soft, nontender, nondistended. EXTREMITIES: The patent did have some swelling and redness on the right knee, which has been present according to the patient since her knee surgery. Sensation was intact, strength on right extremity was less than on the left leg. MCH: 32 H Absolute lymphs: 0.7 L BUN/Creatinine ratio: 27.9 H Glucose: 183 H Hemoglobin: 5.8 H Ur specific gravity: 1.034 H EKG shows rhythm at 87 beats per minute when compared to her older EKG available from 2004. The wave form appears to be similar although previous EKG did show some premature ventricular contraction. CT brain was showing minimal chronic ischemic white matter change in mild atrophy. CTA of the head shows minimal sphenoid and ethmoid sinus disease and negative CTA with 0% stenosis no occlusion in the brain. Angiography of the neck also shows a negative CTA of the neck with 0% stenosis and no occlusion. Portable chest x-ray was noted to be within normal limits. Assessment: Yuliya Card is a 78 year old female with a past medical history of osteoporosis, osteoarthritis, spinal stenosis with surgery, and bilateral knee replacements. Her chief complaint was an event of blurry and double vision that lasted 10 to 15 minutes while driving. Plan: 1. Transient ischemic attack. We will get an MRI along with an echocardiogram and monitor the patient on telemetry and continue with neuro-checks. Neurology consultation was ordered. It is a possibility that the patient may be dehydrated. We will continue with hydration especially in light of her prerenal azotemia. Patient is on aspirin 325 mg PO. Dual antiplatelet ( clopidogrel bisulfate 75 mg PO daily ximena and atorvastatin calcium 20 mg PO daily ). ABCD2 score of 3 points was calculated. 2. Prerenal azotemia. Continue with IV hydration. 3. Minimally elevated LDL cholesterol. Patient should have LDL below 70. Patient is on atorvastatin calcium 20 mg PO daily. 4. History of osteoarthritis. Patient is on acetaminophen 975 mg PO Q8H PRN. We will check an A1c level to rule out any underlying diabetes. 6. DVT prophylaxis with subcutaneous Lovenox.
[2019-08-01] MEDS ORDERED: Aspirin EC TAB* 325 MG PO SCH (09:00)
[2019-08-01] MEDS ORDERED: Diazepam TAB(*) 5 MG PO ONE (10:20)
[2019-08-01] MEDS: Calcium/Vitamin D TAB 250/125* TAB PO SCH ×2 (10:24→20:48)
[2019-08-01] MEDS: Vitamin THERAPEUTIC TAB PO SCH (10:24)
[2019-08-01] MEDS: Clopidogrel TAB* 75 MG PO SCH (10:25)
[2019-08-01] MEDS: CMCS:OMEGA-3 FATTY ACIDS (NF) 1,000 MG CAP PO SCH (10:26)
--- NOTE | 2019-08-01 12:43 | ECHO ---
*[facility]* [place] [address] Fax #: [phone] Transthoracic Echocardiogram Patient: Yuliya Card : 1940 Study Date: 08/01/2019 Age: 78 Gender: F HR: 77 bpm Height: 60 in /152.4 cm BSA: 1.63 m^2 Weight: 135.7 lb /61.7 kg BMI: 26.6 kg/m^2 *Director Of Search Engine Optimization: * Vinita Crum RDCS RN *Referring Physician: * Vidal Almonte *[place] Physician: * David Rowland MD Indications: TIA. History: Osteoarthritis. Conclusions Summary: - Left ventricle: The cavity size is mildly reduced. Wall thickness is mildly to moderately increased. Systolic function is normal. The estimated ejection fraction is 60-65%. Wall motion is normal; there are no regional wall motion abnormalities. - Right ventricle: Systolic function is normal. - Atrial septum: No defect or patent foramen ovale is identified. Bubble study was negative. Images 105 and 106. - Mitral valve: There is no evidence of stenosis. There is mild to moderate regurgitation. - Aortic valve: There is no evidence of stenosis. There is mild regurgitation. - Pericardium, extracardiac: There is no pericardial effusion. - Pulmonary arteries: Systolic pressure is mildly increased, estimated to be 37 mm Hg. - Study data: No prior study is available for comparison. Study data: Transthoracic echocardiogram. Procedure: Transthoracic echocardiography was performed. Image quality was fair. Intravenous agitated saline was administered. A bubble study was performed. Images 105 and 106. Complete 2D, spectral Doppler, and color flow Doppler. Location: Bedside. Patient status: Observation. Patient room number: 435. No prior study is available for comparison. Rhythm: Normal sinus rhythm. Findings Left ventricle: The cavity size is mildly reduced. Wall thickness is mildly to moderately increased. Systolic function is normal. The estimated ejection fraction is 60-65%. Wall motion is normal; there are no regional wall motion abnormalities. Doppler parameters are consistent with abnormal left ventricular relaxation (grade 1 diastolic dysfunction). Right ventricle: The cavity size is normal. Systolic function is normal. Left atrium: The atrium is mildly dilated. Right atrium: The atrium is normal in size. Atrial septum: No defect or patent foramen ovale is identified. Bubble study was negative. Images 105 and 106. Mitral valve: The mitral valve annulus appears calcified. The leaflets are moderately thickened. Possible prolapse of the posterior mitral leaflet. There is no evidence of stenosis. There is mild to moderate regurgitation. Aortic valve: The valve is trileaflet. The leaflets are mildly thickened. There is no evidence of stenosis. There is mild regurgitation. Tricuspid valve: The valve is structurally normal. There is no evidence of stenosis. There is mild-moderate regurgitation. Pulmonic valve: Not well visualized. There is no evidence of stenosis. There is trace regurgitation. Aorta: Aortic root: The aortic root is not dilated. Ascending aorta: The ascending aorta is not dilated. Aortic arch: The aortic arch is not dilated. Pericardium: There is no pericardial effusion. Pulmonary arteries: The main pulmonary artery is normal-sized. Systolic pressure is mildly increased, estimated to be 37 mm Hg. Systemic veins: Inferior vena cava: The vessel is normal in size. There is (>= 50%) respiratory change in the IVC dimension. Measurements Left ventricle Value Ref Aortic valve continued Value Ref ERIK, LAX (L) 3.3 cm 3.8 - LVOT/AV, VTI ratio 0.94 ----- 5.2 AR peak v 3.43 m/sec ----- ESD, LAX (L) 2.1 cm 2.2 - AR decel time 1729 ms ----- 3.5 AR PHT 502 ms ----- FS, LAX 36 % 27 - 45 AR peak grad 47 mm Hg ----- PW, ED (H) 1.1 cm 0.6 - 0.9 Mitral valve Value Ref IVS/PW, ED 1.14 -------- Peak E 1.05 m/sec ----- E', lat eda, TDI (L) 8.0 cm/sec >=10.0 Peak A 1.56 m/sec - ---- E/e', lat eda, TDI 13 -------- VTI leaflet coapt 35.9 cm ---- - E', med eda, TDI (L) 5.0 cm/sec >=7.0 Decel time 256 ms - ---- E/e', med eda, TDI 21 -------- PHT 89 ms ---- - E', avg, TDI 6.5 cm/sec -------- Mean grad, D 3.0 mm Hg ---- - E/e', avg, TDI (H) 16 <=14 Peak grad, D 9.1 mm Hg - ---- Peak E/A ratio 0.67 ----- LVOT Value Ref MVA, PHT 2.5 cm^2 ----- Peak geo, S 1.37 m/sec -------- VTI, S 29.9 cm -------- Pulmonic valve Value Ref Peak grad, S 8 mm Hg -------- Peak v, S 0.91 m/sec ----- Mean grad, S 4 mm Hg -------- Peak grad, S 3.3 mm Hg ----- Ventricular septum Value Ref Tricuspid valve Value Ref IVS, ED (H) 1.3 cm 0.6 - TR peak v (H) 2.9 m/sec <=2.8 0.9 Peak RV-RA grad, S 34 mm Hg ----- Right ventricle Value Ref Aortic root Value Ref ERIK minor ax, A4C 2.7 cm 1.9 - Root diam 3.1 cm <3.9 mid 3.5 Pressure, S 37 mm Hg -------- Ascending aorta Value Ref AAo AP diam, S 2.8 cm ----- Left atrium Value Ref SI dim ES, LAX 3.0 cm -------- Aortic arch Value Ref ML dim, A4C 4.2 cm -------- Arch diam 2.0 cm ----- SI dim, A4C 4.9 cm -------- Vol, ES, 2-p 59 ml -------- Decending aorta Value Ref Vol/bsa, ES, 2-p (H) 36 ml/m^2 16 - 34 Sarah peak geo 0.72 m/sec ----- Right atrium Value Ref Pulmonary artery Value Ref ML dim, ES, A4C 3.7 cm 2.6 - Pressure, S 37.0 mm Hg ----- 4.4 SI dim, ES, A4C 4.5 cm 3.4 - Inferior vena cava Value Ref 5.3 Diam 2.1 cm ----- Estimated RAP 3 mm Hg -------- Aortic valve Value Ref Peak v, S 1.49 m/sec -------- VTI, S 31.9 cm -------- Mean grad, S 4.8 mm Hg -------- Peak grad, S 8.9 mm Hg -------- Legend: (L) and (H) jaqueline values outside specified reference range. Prepared and electronically signed by David Rowland MD 08/01/2019 12:43
[2019-08-01] MEDS ORDERED: Gadoteridol* (CONTRAST) 279.3 MG/ML 10 ML IV ONE (13:00)
--- NOTE | 2019-08-01 15:57 | PN ---
Subjective Date of Service: 08/01/19 Interval History: Pt felt herself totally back to normal today. No blurring vision, no headache, no chest pain, no sensation abnormality, no new weakness (long existing right leg weakness and foot drop due to lumbar spine problem). She last followed up with primary care 6 months ago, was told normal cholesterol , sugar and blood pressure. Objective Active Medications: Acetaminophen (Tylenol Tab*) 975 mg PO Q8H PRN PRN Reason: PAIN - MILD Aspirin (Ecotrin Ec Tab*) 325 mg PO DAILY [facility] Last Admin: 08/01/19 10:25 Dose: 325 mg Atorvastatin Calcium (Lipitor*) 20 mg PO DAILY@1700 [facility] Calcium Carbonate (Calcium Carbonate Tab*) 1,250 mg PO BID PRN PRN Reason: INDIGESTION Calcium/Vitamin D (Oscal D Tab 250/125*) 1 tab PO BID [facility] Last Admin: 08/01/19 10:24 Dose: 1 tab Clopidogrel Bisulfate (Plavix Tab*) 75 mg PO DAILY [facility] Last Admin: 08/01/19 10:25 Dose: 75 mg Fish Oil (Fish Oil (Nf)) 1,000 mg PO DAILY [facility] Last Admin: 08/01/19 10:26 Dose: Not Given Multivitamins (Theragran Tab*) 1 tab PO QAM [facility] Last Admin: 08/01/19 10:24 Dose: 1 tab Vital Signs - 8 hr 08/01/19 08/01/19 08/01/19 11:15 12:02 13:44 Temperature 98 F Pulse Rate 84 Respiratory 18 18 18 Rate Blood Pressure 144/71 (mmHg) O2 Sat by Pulse 96 Oximetry 08/01/19 15:15 Temperature 97.7 F Pulse Rate 76 Respiratory 16 Rate Blood Pressure 135/74 (mmHg) O2 Sat by Pulse 96 Oximetry Oxygen Devices in Use Now: None Exam: General - NAD, sitting up in bed, well groomed Eyes - PERRLA, EOM intact, no cataracts HEENT- no abnormality Lymph Nodes - No lymphadenopathy Cardiovascular - RRR no m/r/g, no JVD, no carotid bruits Lungs - Clear to auscultation, no use of acessory muscles, no crackles or wheezes. Skin - No rashes, skin warm and dry, no erythematous areas Abdomen - Normal bowel sounds, abdomen soft and nontender Extremities - No edema, cyanosis or clubbing Musculo Skeletal - 4+/5 strength over right LL distally, normal range of motion , no swollen or erythematous joints. Neurological Alert and oriented x 3, CN 2-12 grossly intact. Psychiatry- mood stable. Result Diagrams: 08/01/19 04:32 08/01/19 04:32 Assess/Plan/Problems-Billing Assessment: 78 y/o female with history of osteoprosis, osteoarthritis, multiple surgeries involving lumbar spine and knee, presented with single episode of blurring vision lasting for 20min, found to have negative brain imaging (CTA, CT, MRI), currently we are completing workup for TIA. 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 (3) Hyperlipidemia LDL goal <70 Current Visit: Yes Status: Acute Code(s): E78.5 - HYPERLIPIDEMIA, UNSPECIFIED SNOMED Code(s): 85960640 Comment: - lipids panel showed high Triglyceride, LDL 117 (post meal results) - start atorvastatin, continue omega-3 for high TC (4) Elevated fasting glucose Current Visit: Yes Status: Acute Code(s): R73.01 - IMPAIRED FASTING GLUCOSE SNOMED Code(s): 90165134 Comment: - fasting glucose 180+, HbA1c 5.8% - lifestyle modification educated. (5) FH: factor V Leiden mutation Current Visit: Yes Status: Acute Code(s): Z83.2 - FAMILY HISTORY OF [facility] Code(s): 450657624111733 Comment: - in view of thrombotic event, check factor V leiden mutation Status and Disposition: Inpatient, discharge once workup complete. Attestation Documenting Resident: Doris Ramirez Supervising Physician: Celina Martinez Attending/Supervising Physician Comment: suspect TIA based on the duration of her symptoms and resolution; neuro exam is unremarkable this morning. awaiting MRI, neurology consult. started dual antiplatelet today plus statin. symptoms resolved. Attestation: This service has been performed in part by a resident under the direction of a teaching physician.I, Celina Martinez, performed the service, or was physically present during the critical, or messina portions of the service, furnished by the resident. I participated in the management of the patient.
[2019-08-01] MEDS ORDERED: Atorvastatin* 20 MG TAB PO SCH (17:00)
--- NOTE | 2019-08-01 18:10 | DS ---
Resident Discharge Summary Discharge Summary: Date of Admission: 08/01/19 Date of Discharge: 08/01/19 Admitting MD: Vidal Almonte MD Attending MD: Celina Martinez DO Primary Care Physician: Edwin Morrow MD CC: Odalys Douglass Home Medications Medication Instructions Recorded Confirmed Type Alendronate TAB (NF) [Fosamax TAB 1 tab PO WEEKLY 01/14/19 07/31/19 History (NF)] Calcium Carbonate [Calcium] 1,200 mg PO BID PRN 02/13/19 07/31/19 History Multivitamin [Multiple Vitamins] 1 tab PO QAM 02/13/19 07/31/19 History [place]-3 Fatty Acids/Fish Oil 1 each PO DAILY 02/13/19 07/31/19 History [[place] 3 1,000 mg Softgel] Acetaminophen TAB* [Tylenol TAB*] 975 mg PO Q8H tab 05/02/19 07/31/19 Rx Calcium 500 + Vit D Caplet 1,200 mg PO BID 07/31/19 07/31/19 History Clindamycin HCl 600 mg PO SEE INSTRUCTIONS 07/31/19 07/31/19 History Medications on discharge. Highlighted are new medication added during this admission Acetaminophen (Tylenol Tab*) 975 mg PO Q8H PRN Aspirin (Ecotrin Ec Tab*) 81 mg PO DAILY [facility] Atorvastatin Calcium (Lipitor*) 20 mg PO DAILY@1700 [facility] Calcium Carbonate (Calcium Carbonate Tab*) 1,250 mg PO BID PRN Ingestion Calcium/Vitamin D (Oscal D Tab 250/125*) 1 tab PO BID [facility] Clopidogrel Bisulfate (Plavix Tab*) 75 mg PO DAILY [facility] [place]-3 Fatty Acids/Fish Oil 1tab po daily Multivitamins (Theragran Tab*) 1 tab PO QAM [facility] Disposition: Stable to home Condition: Stable Primary Diagnosis: 1. Transient Ischemic Attack 2. Hypertension 3. Impaired fasting glucose 4. Hyperlipidemia 5. Family history of Factor V Leiden Mutation Secondary Diagnosis: 1. Osteoporosis 2. Osteoarthritis 3. History of Appendectomy 4. History of tubal ligation 5. History of lumbar diskectomy and fusion 6. History of breast reduction surgery 7. History of bilateral shoulder arthroscopies 8. History of right thumb surgery 9. History of bilateral total knee arthroplasties 10. History of right foot bunionectomy Diagnostic Imaging: Brain CT 9/22/19: minimal chronic ischemic white matter change and mild atrophy , otherwise negative. Head CTA 07/31/19: minimal sphenoid and ethmoid sinus disease, otherwise negative with 0% stenosis and no occlusion. Brain MRI 08/01/19: no acute intracranial abnormality, but found punctate old right cerebellar infarct, mild chronic small vessel disease. Chest X ray 07/31/19: no active cardiopulmonary disease. ECG 07/31/19: normal sinus rhythm. TTE: EF 60-65%, no WMA, no valvular changes, no PFO. Pertinent Laboratory Results: HbA1c 5.8% Lipid: Triglyceride 416, total cholesterol 180, LDL 117. CBC: normal CMP: normal factor V leiden mutation: pending on discharge. Hospital Course: Yuliya Card is a 78 y/o female with history only osteoporosis and osteoarthritis, presented to ED with a transient episode of blurring vision, found negative brain imaging including CT, CTA, MRI, also she was newly found to have multiple cardiovascular risk factors including hypertension, impaired fasting glucose, high triglyceride and LDL not to target. Problems during this admission include, 1. TIA - A full workup for TIA done, CT, CTA, MRI didn't show any acute infarct, but it did show an old right cerebellar infarct. TTE showed normal cardiac function , no valvular changes, no PFO. ECG, CXR all normal. - start DAPT including aspirin and plavix in view of ABCD2 score 3 - Consulted Neurologist during hospitalization, concurred with above plan 2. Hypertension - BP in a range of 122-144/71-78 on the day of discharge without antihypertensive - no antihypertensive started, educated patient on lifestyle modification, and will continue monitoring outpatient 3. Hyperlipidemia - Elevated triglyceride and LDL not to target level - started on atorvastatin 20mg in view of high CV risk and TIA 4. Impaired fasting glucose - fasting glucose 183, HbA1c 5.8 this admission - Advocated on healthy lifestyle and DM diet. 5. family history of Factor V leiden - significant history of factor V related DVT in her brother and her cousin - checked factor V leiden mutation in view of TIA, results pending. Above results, assessment and plan was discussed with patient. Patient agreed with the above plan, and she agreed to follow up with her primary care within 1 week after discharge. Follow Up Instructions: - F/U PCP within 1 week In case of an emergency or after clinic hours, please go to your nearest Emergency Department. You may also call the [facility] rail switch operator at . Attestation Documenting Resident: Doris Ramirez Supervising Physician: Celina Martinez Attending/Supervising Physician Comment: *Factor V Leiden is pending at the time of discharge. This needs to be followed , as it would change the treatment for her TIA. Follow up with Dr. Caceres is to be arranged by his office. Dr. Caceres has instructed her NOT TO DRIVE UNTIL SHE IS SEEN IN HIS OFFICE and she understands this and has friends who will help transport her. Attestation: This service has been performed in part by a resident under the direction of a teaching physician.I, Celina Martinez, performed the service, or was physically present during the critical, or messina portions of the service, furnished by the resident. I participated in the management of the patient.
--- NOTE | 2019-08-01 20:03 | CONS ---
NEUROLOGY CONSULTATION: DATE OF CONSULT: 08/01/19 LOCATION: She in an inpatient in room 435. REFERRING PROVIDER: Dr. Martinez. CHIEF COMPLAINT: Double vision. 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 She was in her usual state of health driving home from a friend's house yesterday in the late afternoon when she experienced double vision. She noted 2 objects, 1 on top of the other. She pulled her car over to the side. She tried covering 1 eye and then the other, but it was still "blurry" even when looking monocularly. It resolved in about 10 to 15 minutes. She called her friends, who came to get her, so it was at least 10 minutes. They brought her to urgent care and ultimately to the emergency room and she was admitted. The whole episode lasted 10 to 15 minutes and has not recurred. She has never had episodes of double vision before. There are no associated symptoms. Specifically, she did not have any headache, eye pain, difficulty with speech, numbness of the face or any new numbness of the limbs or new weakness in the limbs. There was no sense of vertigo or dizziness. PAST MEDICAL HISTORY: Notable for lumbar surgery with chronic right lumbar radiculopathy, osteoporosis, bilateral total knee arthroplasties with the last one done about 3 months ago, remote history of postinfectious neuropathy, multiple orthopedic surgeries. MEDICATIONS: At home consist only of: 1. Alendronate 1 tablet every week. 2. Tylenol p.r.n. pain. 3. Clindamycin prior to dental procedures. 4. Calcium and vitamin supplementation. ALLERGIES: She is allergic to DOXYCYCLINE, SULFA DRUGS, NITROFURANTOIN, OXYCODONE, HYDROCODONE. SOCIAL HISTORY: She is a nonsmoker. She does not drink alcohol on a regular basis. REVIEW OF SYSTEMS: Negative for recent falls, change in weight, fevers, or infections. There is no history of diabetes or dyslipidemia. There is no history of heart disease. PHYSICAL EXAM: She is well nourished and well hydrated. Temperature is 98.8, blood pressure 140 to 152 systolic over 70 to 92 diastolic. Heart rate is in the 80s and regular and respiratory rate is 20. Oxygen saturation is 94% on room air. Heart tones are normal. There are no murmurs. There are no cervical bruits. Lungs are clear bilaterally. She has a well-healed right knee arthroplasty scar. Neurological Exam: Pupils, fundi, and eye movements are normal. Visual black are full to confrontation. There is no ptosis. Facial musculature is intact and symmetric. Facial sensation to light touch is intact and symmetric. Palate and tongue appear normal and there is no dysarthria. Hearing is intact. Motor exam reveals a right footdrop. She has intrinsic hand muscle weakness in the right hand. She has normal proximal strength. There is no rest or sustention tremor. [id number] maneuver is normal bilaterally. Finger taps are normal in the hands. She has trace reflexes at the biceps and is otherwise areflexic. Plantar responses flexor bilaterally. I did not attempt to ambulate her. Sensory exam in the limbs is notable for diminished pin discrimination in the right foot to the ankle and the left foot to fci up the foot. She is alert and oriented and a good detailed historian. Memory is intact and language is fluent. She has adequate attention, concentration, and fund of knowledge. DIAGNOSTIC STUDIES/LAB DATA: Includes an MRI scan of the brain from early this morning interpreted as showing mild chronic small vessel disease. There is a punctate lesion in the right cerebellum considered to be a probable old infarct. I reviewed the images personally and I agree. CT angiogram of the head and neck did not reveal any significant stenosis of the major vessels intracranially or in the neck. I reviewed the images personally and agree also with that interpretation. Transthoracic echocardiogram was normal. Other laboratory data notable for normal chemistry profile on admission, nonfasting glucose was 117. Hemoglobin A1c this morning is borderline elevated at 5.8%. The rest of the chemistry profile is unremarkable. Her cholesterol last evening was 180, LDL 117. CBC is normal. INR and PTT are likewise normal. IMPRESSION AND PLAN: Impression is that of a possible posterior circulation transient ischemic attack. She describes vertical diplopia, but she says it did not go away when she covered and uncovered either eye, which is hard to put into good anatomical formulation. I agree with dual antiplatelet therapy for 30 days and then I would switch her to aspirin monotherapy. I agree with starting atorvastatin as her LDL should be under 70 with this most recent presumptive cerebrovascular event. She has borderline glucose intolerance and I think that just needs to be monitored as an outpatient. I think she could be discharged on dual antiplatelet therapy and her statin and I can see her in followup in a few weeks in my office. I have discussed the concepts of transient ischemic attack and stroke with Ms. Card and the rationale behind the medical therapies. [id number]/CPS #: [id number] MTDD
[2019-08-02] MEDS ORDERED: Aspirin EC TAB* 81 MG TAB.EC PO SCH (09:00)
[2019-08-02] MEDS ORDERED: Aspirin EC TAB* 325 MG PO SCH (09:00)
[2019-08-02] MEDS: Calcium/Vitamin D TAB 250/125* TAB PO SCH (09:51)
[2019-08-02] MEDS: CMCS:OMEGA-3 FATTY ACIDS (NF) 1,000 MG CAP PO SCH (09:51)
[2019-08-02] MEDS: Clopidogrel TAB* 75 MG PO SCH (09:51)
[2019-08-02] MEDS: Vitamin THERAPEUTIC TAB PO SCH (09:51)
[2019-08-02 10:31] VITALS: BP 139/66
--- NOTE | 2019-08-02 14:12 | CONS ---
NEUROLOGY FOLLOWUP NOTE: DATE OF FOLLOWUP: 08/02/19 LOCATION: She is an inpatient in room 443. HOSPITALIST: Dr. Martinez. RESIDENT: Dr. Ramirez. CHIEF COMPLAINT: Episode of double vision. INTERVAL HISTORY: Since yesterday, Yuliya Pandey feels well. She has not had anymore visual problems. She has not had any problems with headaches, unsteadiness, or numbness. MEDICATIONS: Reviewed. Aspirin 81 mg p.o. daily, atorvastatin 20 mg p.o. daily , Plavix 75 mg p.o. daily. She was not examined today. IMPRESSION AND PLAN: I went over her symptoms and told her I would like to see her in my office in 3 to 4 weeks to get her on antiplatelet monotherapy. Recommend she stay on her statin given her LDL greater than 100. She should follow up with the primary care physician as well as I will have my staff contact her to make a followup with me. [id number]/CPS #: [id number] TIGIST
== END 2019-08-02 10:52 | disposition home or self-care (01) ==
LOC: ED 19:53 → MEDTELE 08-01 03:00
PROVIDERS: ADMIT Internal Medicine; ATTEND Internal Medicine
DX: G45.9 Transient cerebral ischemic attack, unspecified (principal); I10 Essential (primary) hypertension; R73.02 Impaired glucose tolerance (oral); E78.5 Hyperlipidemia, unspecified; Z83.2 Family history of diseases of the blood and blood-forming organs and certain disorders involving the immune mechanism; M81.0 Age-related osteoporosis without current pathological fracture; M19.90 Unspecified osteoarthritis, unspecified site; Z90.89 Acquired absence of other organs; Z98.51 Tubal ligation status; Z79.899 Other long term (current) drug therapy; Z79.82 Long term (current) use of aspirin
CPT/HCPCS: 36415; 70450; 70496; 70498; 70553; 71045; 80048; 80053; 80061; 81003; 81241; 83036; 83605; 83721; 84484; 85025; 85610; 85730; 93005; 93306; 96361; 96374; 96375; 99285; A9270-GY; A9579; G0378; J1200; J2930; Q9967